=== PATIENT | female | born 1965 | race Caucasian/White ===

== ENCOUNTER → 2018-01-28 09:08 | Outpatient (CLI) | payer OTHER, SELFPAY ==
[2018-01-28 10:20] LABS: Absolute Lymphocyte Count 1.94 X10^3/ul (0.83-4.51); Absolute Neutrophil Count 2.6 X10^3/uL (2.0-7.7); Basophil# 0.02 X10^3/uL; Basophil% 0.4 % (0-1); Eosinophil# 0.18 X10^3/uL; Eosinophils% 3.5 % (0-5); Hematocrit 37.8 % (37-47); Hemoglobin 12.2 g/dl (12.0-15.0); Lymphocyte # 1.94 X10^3/ul (4.0); Lymphocyte % 37.7 % (19-41); Mean Corp Hgb Conc 32.3 g/gl (32-36); Mean Corpuscular Hgb 29.4 pg (27.0-32.0); Mean Corpuscular Volume 91.1 fL (81-99); Mean Platelet Vol. 10.7 fl (6.2-12.0); Monocyte% 7.8 % (0-10); Neutrophil % 50.4 % (47-70); Platelet Count 250 K/mm3 (150-450); RBC Distribution Width CV 12.9 % (11.6-14.6); RBC Distribution Width SD 42.4 fl (35.1-43.9); Red Blood Count 4.15 M/mm3 (4.2-5.4); White Blood Count 5.2 K/mm3 (4.4-11.0)
[2018-01-28 10:22] LABS: POSITIVE COUNT NO; POSITIVE DIFFERENTIAL NO; POSITIVE MORPHOLOGY NO
[2018-01-28 10:44] LABS: Vitamin D,25 Hydroxy 48.3 ng/mL (29.95-100.01)
[2018-01-28 10:55] LABS: AST(SGOT) 26 U/L (15-37); Alanine Aminotransfer ALT/SGPT 26 U/L (13-56); Albumin, Serum 3.6 g/dL (3.2-5.0); Alkaline Phosphatase 81 U/L (45-117); Anion Gap 6 (5-15); BUN 16 mg/dL (7-18); BUN/Creat Ratio 21.8 RATIO (10-20); CRP < 2.90 mg/L (0.0-3.0); Calcium,Total 8.7 mg/dL (8.5-10.1); Chloride 109 mmol/L (98-107); Creatinine, Serum 0.73 mg/dL (0.55-1.02); EST Glomerular Filtration Rate 87 mL/min (>60); Est Glom Filt Rate - Afr Amer 106 mL/min (>60); Ferritin 27 ng/mL (8-252); Globulin 3.5 g/dL (2.2-4.2); Glucose 80 mg/dL (74-106); Potassium 3.9 mmol/L (3.5-5.1); Protein, Total 7.1 g/dL (6.4-8.2); Sodium Level 141 mmol/L (136-145)
[2018-01-28 11:13] LABS: Hemoglobin A1c 5.1 % (4.2-6.3)
== END ==
PROVIDERS: Family Provider Family Medicine; PCP Family Medicine; Visit Provider Family Medicine
DX: Z00.00 Encounter for general adult medical examination without abnormal findings (principal); K51.90 Ulcerative colitis, unspecified, without complications
CPT/HCPCS: 36415; 80053; 82306; 82728; 83036; 85025; 86140

== ENCOUNTER → 2019-07-17 10:01 | Outpatient (CLI) | payer OTHER, SELFPAY ==
[2019-07-17 12:13] LABS: Absolute Lymphocyte Count 2.05 X10^3/uL (0.83-4.51); Absolute Neutrophil Count 3.8 X10^3/uL (2.0-7.7); Basophil# 0.03 X10^3/uL; Basophil% 0.5 % (0-1); Eosinophils% 3.1 % (0-5); Hematocrit 39.9 % (37-47); Hemoglobin 12.5 g/dL (12.0-15.0); Lymphocyte # 2.05 X10^3/ul (4.0); Lymphocyte % 31.7 % (19-41); Mean Corp Hgb Conc 31.3 g/dL (32-36); Mean Corpuscular Hgb 28.2 pg (27.0-32.0); Mean Corpuscular Volume 90.1 fL (81-99); Mean Platelet Vol. 10.8 fl (6.2-12.0); Monocyte% 6.2 % (0-10); NRBC Flagged by Analyzer 0 % (0-5); Neutrophil # 3.76 X10^3/uL (2.7-7.7); Neutrophil % 58.2 % (47-70); Platelet Count 280 K/mm3 (150-450); RBC Distribution Width CV 13.2 % (11.6-14.6); RBC Distribution Width SD 43.4 fl (35.1-43.9); Red Blood Count 4.43 M/mm3 (4.2-5.4); White Blood Count 6.5 K/mm3 (4.4-11.0)
[2019-07-17 12:38] LABS: AST(SGOT) 15 U/L (15-37); Alanine Aminotransfer ALT/SGPT 26 U/L (13-56); Albumin, Serum 3.7 g/dL (3.2-5.0); Alkaline Phosphatase 75 U/L (45-117); Anion Gap 9 (5-15); BUN 18 mg/dL (7-18); CRP < 2.90 mg/L (0.0-3.0); Calcium,Total 8.9 mg/dL (8.5-10.1); Chloride 105 mmol/L (98-107); Cholesterol 254 mg/dL (200); Creatinine, Serum 0.78 mg/dL (0.55-1.02); EST Glomerular Filtration Rate 81 mL/min (>60); Est Glom Filt Rate - Afr Amer 98 mL/min (>60); Ferritin 31 ng/mL (8-252); Globulin 3.6 g/dL (2.2-4.2); Glucose 88 mg/dL (74-106); High Density Lipoprotein 92 mg/dL; Protein, Total 7.3 g/dL (6.4-8.2); Sodium Level 141 mmol/L (136-145); Triglycerides 40 mg/dL; Very Low Density Lipoprotein 8 mg/dL (5-40)
[2019-07-17 14:13] LABS: Vitamin D,25 Hydroxy 37.5 ng/mL (29.95-100.01)
== END ==
PROVIDERS: Family Provider Family Medicine; PCP Family Medicine; Visit Provider Family Medicine
DX: Z00.00 Encounter for general adult medical examination without abnormal findings (principal)
CPT/HCPCS: 36415; 80053; 80061; 82306; 82728; 85025; 86140

== ENCOUNTER → 2020-09-03 08:47 | Outpatient (CLI) | payer OTHER, SELFPAY ==
[2020-09-03 10:06] LABS: Absolute Lymphocyte Count 2.49 X10^3/uL (0.83-4.51); Absolute Neutrophil Count 4.3 X10^3/uL (2.0-7.7); Basophil# 0.07 X10^3/uL; Basophil% 0.9 % (0-1); Eosinophil# 0.29 X10^3/uL; Eosinophils% 3.7 % (0-5); Hematocrit 39.4 % (37-47); Hemoglobin 12.3 g/dL (12.0-15.0); Lymphocyte # 2.49 X10^3/ul (4.0); Mean Corp Hgb Conc 31.2 g/dL (32-36); Mean Corpuscular Volume 89.5 fL (81-99); Mean Platelet Vol. 10.6 fl (6.2-12.0); Monocyte# 0.57 X10^3/uL; Monocyte% 7.3 % (0-10); NRBC Flagged by Analyzer 0 % (0-5); Neutrophil # 4.32 X10^3/uL (2.7-7.7); Neutrophil % 55.7 % (47-70); Platelet Count 299 K/mm3 (150-450); RBC Distribution Width CV 12.9 % (11.6-14.6); RBC Distribution Width SD 43.2 fl (35.1-43.9); White Blood Count 7.8 K/mm3 (4.4-11.0)
[2020-09-03 10:44] LABS: Vitamin D,25 Hydroxy 46.7 ng/mL
[2020-09-03 10:45] LABS: ALB/GLOB Ratio 1.2 RATIO (0.9-2.4); AST(SGOT) 16 U/L (15-37); Alanine Aminotransfer ALT/SGPT 23 U/L (13-56); Albumin, Serum 3.9 g/dL (3.2-5.0); Alkaline Phosphatase 89 U/L (45-117); Anion Gap 5 (5-15); BUN 16 mg/dL (7-18); BUN/Creat Ratio 20.4 RATIO (10-20); CRP < 2.90 mg/L (0.0-3.0); Calcium,Total 9.2 mg/dL (8.5-10.1); Chloride 107 mmol/L (98-107); Cholesterol 240 mg/dL (200); Creatinine, Serum 0.79 mg/dL (0.55-1.02); EST Glomerular Filtration Rate 80 mL/min (>60); Est Glom Filt Rate - Afr Amer 97 mL/min (>60); Globulin 3.2 g/dL (2.2-4.2); Glucose 87 mg/dL (74-106); High Density Lipoprotein 73 mg/dL; Potassium 3.7 mmol/L (3.5-5.1); Protein, Total 7.1 g/dL (6.4-8.2); Sodium Level 140 mmol/L (136-145); Triglycerides 53 mg/dL; Very Low Density Lipoprotein 11 mg/dL (5-40)
== END ==
PROVIDERS: PCP Family Medicine; Referring Provider Family Medicine; Visit Provider Family Medicine
DX: Z00.00 Encounter for general adult medical examination without abnormal findings (principal)
CPT/HCPCS: 36415; 80053; 80061; 82306; 85025; 86140

== ENCOUNTER 2020-11-30 15:42 | Outpatient (RCR) | payer OTHER, SELFPAY ==
[2020-11-30] MEDS: COVID-19 VACC, MRNA(PFIZER)/PF 30 MCG/0.3 ML SYRINGE IM (07:39)
[2020-12-21] MEDS: COVID-19 VACC, MRNA(PFIZER)/PF 30 MCG/0.3 ML SYRINGE IM (07:36)
== END 2020-11-30 23:59 ==
LOC: IMMUN 15:42
PROVIDERS: PCP Family Medicine; Referring Provider Family Medicine; Visit Provider Family Medicine
DX: Z23 Encounter for immunization (principal)
CPT/HCPCS: 0001A; 0002A; 91300

== ENCOUNTER → 2021-07-19 11:27 | Outpatient (CLI) | payer OTHER, SELFPAY ==
[2021-07-19 15:42] LABS: Absolute Lymphocyte Count 2.71 X10^3/uL (0.83-4.51); Absolute Neutrophil Count 3.1 X10^3/uL (2.0-7.7); Basophil# 0.07 X10^3/uL; Basophil% 1.1 % (0-1); Eosinophil# 0.19 X10^3/uL; Eosinophils% 2.9 % (0-5); Hematocrit 39.2 % (37-47); Hemoglobin 12.3 g/dL (12.0-15.0); Lymphocyte # 2.71 X10^3/ul (0.83-4.51); Mean Corp Hgb Conc 31.4 g/dL (32-36); Mean Corpuscular Hgb 28.7 pg (27.0-32.0); Mean Corpuscular Volume 91.4 fL (81-99); Monocyte# 0.55 X10^3/uL; Monocyte% 8.3 % (0-10); NRBC Flagged by Analyzer 0 % (0-5); Neutrophil # 3.08 X10^3/uL (2.7-7.7); Neutrophil % 46.5 % (47-70); Platelet Count 299 K/mm3 (150-450); RBC Distribution Width CV 13.2 % (11.6-14.6); RBC Distribution Width SD 44.4 fl (35.1-43.9); Red Blood Count 4.29 M/mm3 (4.2-5.4); White Blood Count 6.6 K/mm3 (4.4-11.0)
[2021-07-19 16:09] LABS: ALB/GLOB Ratio 0.9 RATIO (0.9-2.4); AST(SGOT) 19 U/L (15-37); Alanine Aminotransfer ALT/SGPT 27 U/L (13-56); Albumin, Serum 3.6 g/dL (3.2-5.0); Alkaline Phosphatase 89 U/L (45-117); Anion Gap 8 (5-15); BUN 10 mg/dL (7-18); BUN/Creat Ratio 12.9 RATIO (10-20); CRP < 2.90 mg/L (0.0-3.0); Chloride 106 mmol/L (98-107); Cholesterol 213 mg/dL (200); Creatinine, Serum 0.77 mg/dL (0.55-1.02); EST Glomerular Filtration Rate 81 mL/min (>60); Est Glom Filt Rate - Afr Amer 98 mL/min (>60); Globulin 3.8 g/dL (2.2-4.2); Glucose 75 mg/dL (74-106); High Density Lipoprotein 76 mg/dL; Potassium 3.9 mmol/L (3.5-5.1); Protein, Total 7.4 g/dL (6.4-8.2); Sodium Level 140 mmol/L (136-145); Triglycerides 55 mg/dL; Very Low Density Lipoprotein 11 mg/dL (5-40)
[2021-07-19 16:29] LABS: Vitamin D,25 Hydroxy 72.6 ng/mL
== END ==
PROVIDERS: PCP Family Medicine; Referring Provider Family Medicine; Visit Provider Family Medicine
DX: Z00.00 Encounter for general adult medical examination without abnormal findings (principal); K51.90 Ulcerative colitis, unspecified, without complications
CPT/HCPCS: 36415; 80053; 80061; 82306; 85025; 86140

== ENCOUNTER → 2021-07-22 | Outpatient (CLI) | payer OTHER, SELFPAY ==
[2021-07-27 22:07] LABS: HPV Genotype 16, Aptima Positive (Negative)
[2021-07-28 16:56] LABS: HPV APTIMA, High Risk Positive (Negative); HPV Genotype 18,45 Aptima Negative (Negative)
== END | disposition home or self-care (01) ==
LOC: LABSPEC 09:56
PROVIDERS: PCP Family Medicine; Visit Provider Student in an Organized Health Care Education/Training Program
DX: Z12.4 Encounter for screening for malignant neoplasm of cervix (principal)
CPT/HCPCS: 87624; 88175; G0145

== ENCOUNTER 2021-09-26 11:14 | Outpatient (CLI) | payer OTHER, SELFPAY ==
--- NOTE | 2021-09-26 | CER_PTH ---
PATIENT: NIK LAY LOC: [facility] U#:[id number] AGE/SX: 56/F ROOM: RE09/26/[address]: Dr. Helen Florez DO : 1965 BED: DIS: 09/26/2021 SPEC #: [id number] RECD: 09/26/21 12:54 STATUS: LAUREEN HIREN #: [id number] RAMU: 09/26/21 00:[address]: Helen Florez DEPT: SURGICAL PATHOLOGY RECD BY: Luis Alberto Sanchez ENTERED: 09/26/21 12:55 SP TYPE: CERV OTHR DR: Dr. Nas Samson MD Tissues: A - Uterine cervix, NOS B - Endocervical Procedures: Surgery Specimen Level IV HEADER OPERATION: Colposcopy PRE-OP DIAGNOSIS: Positive HPV TISSUE SUBMITTED: A ? Cervical biopsy 6 o?clock, 12 o?clock, B - ECC MICROSCOPIC DIAGNOSIS A. Cervix, 6 and 12 o?clock, biopsy: Fragments of squamous mucosa with focal minimal changes suspicious for HPV cytopathic effects. Chronic inflammation. See comment. B. ECC: Scant fragment of squamous epithelium, negative for dysplasia. VELVET:clinton 09/27/2021 COMMENT A. Results from immunohistochemistry ([id number]) for surrogate HPV marker (p16) will be reported separately. MICROSCOPIC DESCRIPTION Slides are reviewed. GROSS DESCRIPTION A - Received in fixative is one container labeled with the patient's name and designated cervical biopsy 6 and 12 o'clock. The specimen consists of multiple irregular fragments of light le soft tissue that in aggregate measure 0.5 x 0.2 x 0.1 cm. The specimen is totally submitted in one cassette. B - Received in fixative is one container labeled with the patient's name and designated ECC. The specimen consists of a scant amount of soft tissue. The specimen is totally submitted for cell block preparation. / VELVET:clinton 09/26/2021 TC:5 CPT: 02379 x2
--- NOTE | 2021-09-26 | IMM_PTH ---
PATIENT: NIK LAY LOC: [facility] U#:[id number] AGE/SX: 56/F ROOM: RE09/26/[address]: Dr. Helen Florez DO : 1965 BED: DIS: 09/26/2021 SPEC #: [id number] RECD: 09/27/21 14:03 STATUS: LAUREEN REQ #: [id number] RAMU: 09/26/21 00:[address]: Helen Florez DEPT: IMMUNOHISTOCHEMISTRY RECD BY: Maria E Leos ENTERED: 09/27/21 14:03 SP TYPE: IMMUNO OTHR DR: Dr. Nas Samson MD Tissues: A - Uterine cervix, NOS Procedures: p16 (initial) KI-67 (add) PHYSICIAN & INSTITUTION [place] [id number] SPECIMEN INFORMATION: Tissue Source: A ? Cervical biopsy 6 and 12 o?clock Clinical Info: Positive HPV Specimen Number: [id number] CPT code: 63988, 92796 METHODOLOGY: Deparaffinized sections of prefer/formalin-fixed tissue or PAP/DQ stained slides are incubated with monoclonal/polyclonal antibodies/oligonucleotide probes. Localization is made via biotin free immunoperoxidase method. Appropriate controls are performed and reacted as expected. Results on target cell population are indicated in the following table: RESULTS: ANTIBODY / CLONE RESULT Block A P16 (E6H4) negative Ki-67 (30-9) positive, in basal layers only These tests were developed and their performance characteristics determined by [facility]. They may not have been cleared or approved by the U.S. Food and Drug Administration. The FDA has determined that such clearance or approval is not necessary. The above immunohistochemical/dualISH markers are ordered and reviewed by the Pathologist. INTERPRETATION: A. Cervix at 6 and 12 o?clock, biopsy: Focal minimal changes suspicious for HPV cytopathic effects. SJ:clinton 09/28/2021
== END 2021-09-26 23:59 | disposition short-term general hospital (02) ==
LOC: WOBLAB 11:20
PROVIDERS: PCP Family Medicine; Visit Provider Student in an Organized Health Care Education/Training Program
DX: R87.810 Cervical high risk human papillomavirus (HPV) DNA test positive (principal)
CPT/HCPCS: 88305; 88341; 88342

== ENCOUNTER → 2022-06-19 | Outpatient (CLI) | payer OTHER, SELFPAY ==
[2022-06-28 10:22] LABS: HPV APTIMA, High Risk Positive (Negative)
== END | disposition home or self-care (01) ==
LOC: LABSPEC 09:29
PROVIDERS: PCP Family Medicine; Visit Provider Student in an Organized Health Care Education/Training Program
DX: Z12.4 Encounter for screening for malignant neoplasm of cervix (principal)
CPT/HCPCS: 87624; 88175; G0145

== ENCOUNTER → 2022-07-06 | Outpatient (CLI) | payer OTHER, SELFPAY ==
[2022-07-06 17:45] LABS: Absolute Lymphocyte Count 3.26 X10^3/uL (0.83-4.51); Absolute Neutrophil Count 6.2 X10^3/uL (2.0-7.7); Basophil# 0.06 X10^3/uL; Basophil% 0.6 % (0-1); Eosinophil# 0.17 X10^3/uL; Eosinophils% 1.6 % (0-5); Hematocrit 39.8 % (37-47); Hemoglobin 12.6 g/dL (12.0-15.0); Lymphocyte # 3.26 X10^3/ul (0.83-4.51); Lymphocyte % 31.5 % (19-41); Mean Corp Hgb Conc 31.7 g/dL (32-36); Mean Corpuscular Hgb 29.2 pg (27.0-32.0); Mean Corpuscular Volume 92.1 fL (81-99); Mean Platelet Vol. 10.7 fl (6.2-12.0); Monocyte# 0.65 X10^3/uL; Monocyte% 6.3 % (0-10); NRBC Flagged by Analyzer 0 % (0-5); Neutrophil # 6.19 X10^3/uL (2.7-7.7); Neutrophil % 59.8 % (47-70); Platelet Count 305 K/mm3 (150-450); RBC Distribution Width CV 12.9 % (11.6-14.6); RBC Distribution Width SD 44.2 fl (35.1-43.9); Red Blood Count 4.32 M/mm3 (4.2-5.4); White Blood Count 10.4 K/mm3 (4.4-11.0)
[2022-07-06 19:39] LABS: ALB/GLOB Ratio 1.1 RATIO (0.9-2.4); AST(SGOT) 15 U/L (15-37); Alanine Aminotransfer ALT/SGPT 23 U/L (13-56); Albumin, Serum 3.9 g/dL (3.2-5.0); Alkaline Phosphatase 81 U/L (45-117); Anion Gap 9 (5-15); BUN 19 mg/dL (7-18); BUN/Creat Ratio 23.3 RATIO (10-20); CRP < 2.90 mg/L (0.0-3.0); Calcium,Total 9.4 mg/dL (8.5-10.1); Chloride 107 mmol/L (98-107); Cholesterol 253 mg/dL (200); Creatinine, Serum 0.81 mg/dL (0.55-1.02); EST Glomerular Filtration Rate 76 mL/min (>60); Est Glom Filt Rate - Afr Amer 92 mL/min (>60); Globulin 3.4 g/dL (2.2-4.2); Glucose 85 mg/dL (74-106); High Density Lipoprotein 92 mg/dL; Potassium 3.5 mmol/L (3.5-5.1); Protein, Total 7.3 g/dL (6.4-8.2); Sodium Level 141 mmol/L (136-145)
[2022-07-11 12:08] LABS: CRP, High Sensitivity Cardiac 2.26 mg/L
== END | disposition home or self-care (01) ==
LOC: MFPLAB 16:35
PROVIDERS: PCP Family Medicine; Referring Provider Family Medicine; Visit Provider Family Medicine
DX: Z00.00 Encounter for general adult medical examination without abnormal findings (principal)
CPT/HCPCS: 36415; 80053; 82465; 83718; 85025; 86140; 86141

== ENCOUNTER 2022-07-20 10:13 | Day surgery (SDC) | payer OTHER, SELFPAY ==
--- NOTE | 2022-07-20 | CER_PTH ---
PATIENT: NIK LAY LOC: [facility] U#:[id number] AGE/SX: 57/F ROOM: RE07/20/[address]: Dr. Helen Florez DO : 1965 BED: DIS: 07/20/2022 SPEC #: [id number] RECD: 07/20/22 14:37 STATUS: LAUREEN RECarmelita #: [id number] RAMU: 07/20/22 00:[address]: Helen Florez DEPT: SURGICAL PATHOLOGY RECD BY: Luis Alberto Sanchez ENTERED: 07/21/22 11:00 SP TYPE: CERV OTHR DR: Dr. Nas Samson MD Tissues: A - UTERINE CERVIX LEEP B - UTERINE CERVIX LEEP Procedures: Surgery Specimen Level V HEADER OPERATION: LEEP cone PRE-OP DIAGNOSIS: Abnormal pap TISSUE SUBMITTED: A ? Ectocervix, B - Endocervix MICROSCOPIC DIAGNOSIS A. Ectocervix, LEEP conization: Focal squamous metaplasia involving endocervical glands. Negative for squamous dysplasia. See comment. B. Endocervix, LEEP conization: Negative for squamous dysplasia. Chronic inflammation. See comment. AM:clinton 07/24/2022 COMMENT A. Epithelium is denuded in most of the specimen. B. The specimen predominantly consists of ectocervical (squamous) epithelium. Please make reference to previous specimen ([id number]), cervix, 6 & 12 o?clock, biopsy with diagnosis of ?fragments of squamous mucosa with focal minimal changes suspicious for HPV cytopathic effects? and ECC with diagnosis of ?scant fragments of squamous epithelium, negative for dysplasia.? MICROSCOPIC DESCRIPTION Slides are reviewed. GROSS DESCRIPTION A - Received in fixative is one container labeled with the patient's name and designated ectocervix. The specimen consists of a LEEP conization specimen measuring 1.3 x 1.2 x 0.8. The specimen is inked, serially sectioned and totally submitted in two cassettes. B - Received in fixative is one container labeled with the patient's name and designated endocervix. The specimen consists of a LEEP conization specimen received in five fragments ranging in size from 1 to 1.8 cm. The smaller fragments are inked and totally submitted in cassette 1. The largest fragment is inked, serially sectioned and totally submitted in cassette 2. / DEVON:clinton 07/21/2022 TC:3 CPT: 26293 x2
--- NOTE | 2022-07-20 07:07 | PCM.HP.BLA ---
History and Physical Date of Admission: 07/20/22 HPI: 57-year-old female presenting for loop electrical excisional procedure for high-grade squamous intraepithelial lesion HPV positive Pap test. Denies fevers or chills, chest pain or shortness of breath, nausea or vomiting, diarrhea or constipation, headache or vision changes. Medical history: Denies Surgical history: D&C Medications: None Allergies: Penicillin Family history: Cancer otherwise noncontributory Social history: Denies tobacco, alcohol, drug use Review of system: Negative otherwise stated above Physical exam Vitals pending General: No acute distress HEENT normocephalic, atraumatic Cardiac: Regular rate and rhythm Respiratory: Clear to auscultation bilaterally Abdomen: Soft, nontender nondistended Extremities: No edema Neurologic: Cranial nerves II through XII grossly intact, no focal deficits Musculoskeletal: Strength out of 5 throughout extremities Assessment/plan: 57-year-old female presenting for loop electrical excisional procedure for high-grade squamous intraepithelial lesion HPV positive Pap test. All risk, benefits, alternatives discussed with the patient. Risk include but not limited to: Risk of bleeding when transfusion, infection, injury to surrounding tissue including bowel/bladder/uterine perforation, VTE, ICU admission. Patient aware and consented.
[2022-07-20 11:10] VITALS: BP 126/95; PULSE 70; RESP 12; TEMP 36.2; O2SAT 100; BMI 22.4
[2022-07-20] MEDS: Lidocaine 2% /Epi 1:100 (20ml) 20 ML VIAL (12:30)
[2022-07-20] MEDS: Iodine/Potassium Iodide 14ML Bottle 1 DRP TOPICAL (12:32)
[2022-07-20] MEDS: FERRIC SUBSULFATE 8 GM SOLN (12:40)
--- NOTE | 2022-07-20 12:48 | PCM.OPRPT ---
Report of Operation Date of Procedure: 07/20/22 Pre-Operative Diagnosis: Abnormal Pap smear, high-grade squamous intraepithelial lesion HPV positive Post-Operative Diagnosis: Abnormal Pap smear, high-grade squamous intraepithelial lesion HPV positive Surgery/Procedure Performed:: Loop electrical excisional procedure Description of Surgical Findings:: Normal-appearing external genitalia. Minimal uterine descensus. Lugol staining of cervix and vagina. Type of Anesthesia: Local Specimen's removed: Endocervix and ectocervix Estimated Blood Loss (mL): 5 cc Fluids Replaced: None Description of Procedure: Indications/risk/benefits: Patient presenting for loop electrical excisional procedure. All risk, benefits, alternatives discussed with the patient. Risk include but are not limited to: Risk of bleeding point transfusion, infection, injury to surrounding tissue and bowel/bladder/vagina, VTE, ICU mission. Procedure: Patient taken to the operating room. Patient placed in the dorsal lithotomy position and prepped and draped in usual sterile fashion. Coated speculum placed in the vagina. Paracervical block completed with 14 cc 2% lidocaine with epinephrine 1:200. Lugol's placed in the vagina and along the cervix. Findings as above. Loop utilized to remove anterior and posterior cervix, endocervix. Cervical but hemostatic with rollerball. Vagina inspected with findings as above. Monsel's placed at the LEEP bed of the cervix. At the end of the procedure all needle, lap, sponge counts were correct. Discussed findings with patient. Complications None
--- NOTE | 2022-07-20 12:52 | DCINST_ITS ---
Discharge Instructions Diet Discharge Diet: No restrictions Activity Discharge Activity: Return to Normal Activity and May Shower May resume sexual activity in: 2 weeks Weight Bearing Status: Weight bearing as tolerated Lifting Restrictions: None Dressing / Incision Call your doctor if you observe: Fever of 101 or Higher, Change in Color, Inability to urinate, Using more than 1 pad per hour, Shortness of breath, Dizziness, Swelling in the ankles, Chest pain and Calf discomfort Follow Up Care Please Follow Up With: Helen Florez DO When: 1-2 week postoperative visit Test Results: Test results from this visit will be discussed in further detail at your follow- up appointment, if applicable. Discharge Plan Admission Primary Reason for Your Visit: LEEOlivia Attending Provider: Helen Florez Primary Care Provider: Nas Samson Discharge Orders/Prescriptions Prescriptions: No Action Ahcc 2 cap PO/SL DAILY multivitamin Capsule 1 cap PO DAILY cholecalciferol (vitamin D3) [Vitamin D3] 25 mcg (1,000 unit) Capsule 25 mcg PO DAILY coenzyme Q10 [CoQ-10] 100 mg Capsule 100 mg PO DAILY Fish Oil Capsule 1,000 mg PO DAILY Vitamin U96-Hnyes Tablet 1 tab PO FR resveratrol 100 mg Capsule 100 mg PO DAILY vitamin K2 100 mcg Capsule 100 mcg PO DAILY Nmn 1 packet PO/SL DAILY metformin 500 mg tablet 250 mg PO BID Label Comments: TAKE 1/2 TABLET BY MOUTH TWICE DAILY Referrals / Follow Up: Nas Samson MD [Primary Care Provider] - Disposition Disposition (needs filled in before D/C Order can be placed): Home, Self Care
== END 2022-07-20 13:15 | disposition home or self-care (01) ==
LOC: SDC 10:15 → AC 10:19
PROVIDERS: PCP Family Medicine; Referring Provider Student in an Organized Health Care Education/Training Program; Visit Provider Student in an Organized Health Care Education/Training Program
PROC: 0UBC7ZZ Excision of Cervix, Via Natural or Artificial Opening (ICD-10-PCS; CPT 57522; principal; 2022-07-20 11:35)
DX: R87.619 Unspecified abnormal cytological findings in specimens from cervix uteri (principal); Z11.51 Encounter for screening for human papillomavirus (HPV)
CPT/HCPCS: 57522; 86850; 86900; 86901; 88307; J7120

== ENCOUNTER → 2023-01-24 | Outpatient (CLI) | payer OTHER, SELFPAY ==
[2023-02-01 15:09] LABS: HPV APTIMA, High Risk Negative (Negative)
== END | disposition home or self-care (01) ==
LOC: LABSPEC 09:23
PROVIDERS: PCP Family Medicine; Visit Provider Student in an Organized Health Care Education/Training Program
DX: Z12.4 Encounter for screening for malignant neoplasm of cervix (principal)
CPT/HCPCS: 87624; 88175; G0145

== ENCOUNTER → 2023-02-26 | Outpatient (CLI) | payer OTHER, SELFPAY ==
--- NOTE | 2023-02-26 | IMM_PTH ---
PATIENT: NIK LAY LOC: [facility] U#:[id number] AGE/SX: 58/F ROOM: RE02/26/[address]: Dr. Helen Florez DO : 1965 BED: DIS: 02/26/2023 SPEC #: [id number] RECD: 02/28/23 12:56 STATUS: LAUREEN REQ #: [id number] RAMU: 02/26/23 00:[address]: Helen Florez DEPT: IMMUNOHISTOCHEMISTRY RECD BY: Maria E Leos ENTERED: 02/28/23 12:57 SP TYPE: IMMUNO OTHR DR: Dr. Nas Samson MD Tissues: A - Uterine cervix, NOS B - Endocervical Procedures: p16 (initial) KI-67 (add) PHYSICIAN & INSTITUTION [place] [id number] SPECIMEN INFORMATION: Tissue Source: A ? Cervical biopsy, B ? Endocervical curettings Clinical Info: N93.9 Specimen Number: [id number] A & B CPT code: 02335 x2, 50852 x2 METHODOLOGY: Deparaffinized sections of prefer/formalin-fixed tissue or PAP/DQ stained slides are incubated with monoclonal/polyclonal antibodies/oligonucleotide probes. Localization is made via biotin free immunoperoxidase method. Appropriate controls are performed and reacted as expected. Results on target cell population are indicated in the following table: RESULTS: ANTIBODY / CLONE RESULT Block A P16 (E6H4) positive, focal minimal patchy staining Ki-67 (30-9) positive, very low, only basal layer Block B P16 (E6H4) positive, focal minimal patchy staining Ki-67 (30-9) positive, very low These tests were developed and their performance characteristics determined by [facility]. They may not have been cleared or approved by the U.S. Food and Drug Administration. The FDA has determined that such clearance or approval is not necessary. The above immunohistochemical/dualISH markers are ordered and reviewed by the Pathologist. INTERPRETATION: A. Cervical biopsy: Negative for dysplasia. B. Endocervical curettings: Negative for dysplasia. SJ:clinton 03/01/2023
--- NOTE | 2023-02-26 | CER_PTH ---
PATIENT: NIK LAY LOC: [facility] U#:[id number] AGE/SX: 58/F ROOM: RE02/26/[address]: Dr. Helen Florez DO : 1965 BED: DIS: 02/26/2023 SPEC #: [id number] RECD: 02/26/23 15:24 STATUS: LAUREEN HIREN #: [id number] RAMU: 02/26/23 00:[address]: Helen Florez DEPT: SURGICAL PATHOLOGY RECD BY: Jamarcus Riggs ENTERED: 02/27/23 10:22 SP TYPE: CERV OTHR DR: Dr. Nas Samson MD Tissues: A - Uterine cervix, NOS B - Endocervical Procedures: Surgery Specimen Level IV HEADER OPERATION: Colposcopy PRE-OP DIAGNOSIS: N93.9 TISSUE SUBMITTED: A ? Cervical biopsy, B ? Tischler endocervical curettings MICROSCOPIC DIAGNOSIS A. Cervix, biopsy: Fragments of squamous epithelium, negative for dysplasia. Atrophic changes. See comment. B. Endocervical curettings: Fragments of squamous epithelium, negative for dysplasia. Atrophic changes. Fragments of benign endocervical epithelium. See comment. VELVET:clinton 02/28/2023 COMMENT A & B. Immunohistochemistry ([id number]) for surrogate HPV marker (p16) supports the above diagnosis. MICROSCOPIC DESCRIPTION Slides are reviewed. GROSS DESCRIPTION A - Received in fixative is one container labeled with the patient's name and designated cervical biopsy. The specimen consists of two irregular fragments of light le soft tissue that in aggregate measure 0.5 x 0.3 x 0.1 cm. The specimen is totally submitted in one cassette. B - Received in fixative is one container labeled with the patient's name and designated ECC. The specimen consists of a scant amount of soft tissue. The specimen is totally submitted for cell block preparation. / VELVET:clinton 02/27/2023 TC:5 CPT: 52137 x2
== END | disposition home or self-care (01) ==
LOC: LABSPEC 15:19
PROVIDERS: PCP Family Medicine; Visit Provider Student in an Organized Health Care Education/Training Program
DX: N93.9 Abnormal uterine and vaginal bleeding, unspecified (principal)
CPT/HCPCS: 88305; 88341; 88342

== ENCOUNTER → 2023-08-06 | Outpatient (CLI) | payer OTHER, SELFPAY ==
--- NOTE | 2023-08-06 15:26 | BI_ITS ---
MAMMOGRAPHY - BILATERAL SCREENING REASON FOR EXAM: Female, 58 years old. Routine annual screening examination. PERTINENT HISTORY: Non-contributory. TECHNIQUE: Digital bilateral breast angela (3D mammographic acquisition) in the CC and MLO projections. 2-D mediolateral oblique (MLO) and craniocaudad (CC) views of both breasts were obtained. CAD: Full Field Digital Mammography with Computer Added Detection was performed. COMPARISON: Comparison is made with prior study dated August 23, 2017. FINDINGS: Breast Composition: The breasts are heterogeneously dense, which may obscure small masses. There are no dominant masses or suspicious calcifications. No other significant abnormalities are identified. There has been no significant change since the prior study. BI/SCRN MAMM (CAD)W/ANGELA BILAT IMPRESSION: Stable bilateral screening mammogram. Yearly follow-up mammogram recommended. (A) ASSESSMENT CATEGORY: BIRADS Category 1: Negative. A letter regarding these results will be sent to the patient by the facility within 30 days. Approximately 10% of breast cancers are not detected by mammography. A normal mammogram should not delay biopsy of a clinically suspicious abnormality. [id number] Electronically Signed: Shiva Irving MD at 10:52 EST ,
== END | disposition home or self-care (01) ==
LOC: OPBI 15:24
PROVIDERS: PCP Family Medicine; Referring Provider Family Medicine; Visit Provider Family Medicine
DX: Z12.31 Encounter for screening mammogram for malignant neoplasm of breast (principal)
CPT/HCPCS: 77063; 77067

== ENCOUNTER → 2023-08-14 | Outpatient (CLI) | payer OTHER, SELFPAY ==
[2023-08-14 15:16] LABS: Absolute Lymphocyte Count 2.41 X10^3/uL (0.83-4.51); Absolute Neutrophil Count 4.4 X10^3/uL (2.0-7.7); Basophil# 0.05 X10^3/uL; Basophil% 0.7 % (0-1); Eosinophil# 0.18 X10^3/uL; Eosinophils% 2.4 % (0-5); Hematocrit 40.2 % (37-47); Hemoglobin 12.5 g/dL (12.0-15.0); Lymphocyte # 2.41 X10^3/ul (0.83-4.51); Mean Corp Hgb Conc 31.1 g/dL (32-36); Mean Corpuscular Hgb 28.5 pg (27.0-32.0); Mean Corpuscular Volume 91.6 fL (81-99); Mean Platelet Vol. 10.6 fl (6.2-12.0); Monocyte# 0.52 X10^3/uL; Monocyte% 6.9 % (0-10); NRBC Flagged by Analyzer 0 % (0-5); Neutrophil # 4.35 X10^3/uL (2.7-7.7); Neutrophil % 57.7 % (47-70); Platelet Count 321 K/mm3 (150-450); RBC Distribution Width SD 43.8 fl (35.1-43.9); Red Blood Count 4.39 M/mm3 (4.2-5.4); White Blood Count 7.5 K/mm3 (4.4-11.0)
[2023-08-14 16:23] LABS: AST(SGOT) 16 U/L (15-37); Alanine Aminotransfer ALT/SGPT 24 U/L (13-56); Albumin, Serum 3.8 g/dL (3.2-5.0); Alkaline Phosphatase 81 U/L (45-117); Anion Gap 9 (5-15); BUN 13 mg/dL (7-18); BUN/Creat Ratio 17.3 RATIO (10-20); CRP 3.34 mg/L (0.0-3.0); Calcium,Total 8.9 mg/dL (8.5-10.1); Chloride 106 mmol/L (98-107); Cholesterol 264 mg/dL (200); Creatinine, Serum 0.75 mg/dL (0.55-1.02); EST Glomerular Filtration Rate 84 mL/min (>60); Est Glom Filt Rate - Afr Amer 101 mL/min (>60); Globulin 3.7 g/dL (2.2-4.2); Glucose 80 mg/dL (74-106); High Density Lipoprotein 88 mg/dL; Potassium 3.7 mmol/L (3.5-5.1); Protein, Total 7.5 g/dL (6.4-8.2); Sodium Level 140 mmol/L (136-145); T4 Free Direct 1.13 ng/dL (0.76-1.46); Thyroid Stim Hormone (TSH) 1.01 uIU/mL (0.358-3.74)
[2023-08-16 11:08] LABS: Lyme Scn Total Ab w/Rflx Negative (Negative)
[2023-08-16 14:09] LABS: ANTINUCLEAR ANTIBODIES DIRECT Negative (Negative)
== END | disposition home or self-care (01) ==
LOC: MTLAB 12:21
PROVIDERS: PCP Family Medicine; Referring Provider Family Medicine; Visit Provider Family Medicine
DX: Z00.00 Encounter for general adult medical examination without abnormal findings (principal); K51.90 Ulcerative colitis, unspecified, without complications; W57.XXXA Bitten or stung by nonvenomous insect and other nonvenomous arthropods, initial encounter; R53.83 Other fatigue
CPT/HCPCS: 36415; 80053; 82465; 83718; 84439; 84443; 85025; 86038; 86140; 86618

== ENCOUNTER 2023-09-20 07:46 | Day surgery (SDC) | payer OTHER, SELFPAY ==
[2023-09-20 08:12] VITALS: BP 113/71; PULSE 54; RESP 16; TEMP 36.6; O2SAT 100; BMI 23.2
[2023-09-20] MEDS: Lactated Ringers 1,000 ML 15 ML IV (08:12)
--- OUTSIDE RECORDS SUMMARY | 2023-09-20 08:12 | XMS RPT_ITS | CCD ---
Author Name Unknown Address [address] [place] [address] Organization [facility] Care Team Providers Care Mortgage Branch Manager Name Role Phone SUKH CASTLE MD Primary Care Physician WALDO JULES, WANG Attending Unavailable SUKH CASTLE MD Primary Care Unavailable WANG HAAS MD Attending Unavailable SUKH CASTLE MD Primary Care Unavailable Allergies Allergy Classification Reported Allergen(s) Allergy Type Date of Onset Reaction(s) Facility (2 sources) Cashew nut Food allergy itching [facility] (2 sources) Penicillins; Translations: [penicillins] Drug allergy rash [facility] Medications Current Medications Medication Drug Class(es) Dates Sig (Normalized) Sig (Original) Estriol vaginal cream (2 sources) Start: 08-20-2023 Estriol vaginal cream Estriol vaginal cream, 0 Refill(s) Start Date: 08/20/23 Status: Ordered ferrous sulfate (2 sources) Start: 08-20-2023 ferrous sulfate Oral, 0 Refill(s) Start Date: 08/20/23 Status: Ordered magnesium oxide 250 mg oral tablet (2 sources) Start: 08-20-2023 Magnesium 250 mg tablet Dose : 500 mg = 2 tab(s), Oral, qDay, 0 Refill(s) Start Date: 08/20/23 Status: Ordered Multivitamin preparation (2 sources) Start: 08-20-2023 take 1 tablet by mouth once daily Multivitamin Dose = 1 tab(s), Oral, Daily, 0 Refill(s) Start Date: 08/20/23 Status: Ordered turmeric extract 500 mg oral capsule (2 sources) Start: 08-20-2023 turmeric 500 mg oral capsule 0 Refill(s) Start Date: 08/20/23 Status: Ordered vitamin B12 (2 sources) Vitamin B12 Start: 08-20-2023 Vitamin B12 0 Refill(s) Start Date: 08/20/23 Status: Ordered Vitamin D and K oral tablet (2 sources) Start: 08-20-2023 Vitamin D and K oral tablet 0 Refill(s) Start Date: 08/20/23 Status: Ordered Zinc (2 sources) Start: 08-20-2023 take 1 dose by mouth once daily Zinc Dose : 140 mg =, Oral, qDay, 0 Refill(s) Start Date: 08/20/23 Status: Ordered Completed/Discontinued Medications Medication Drug Class(es) Dates Sig (Normalized) Sig (Original) estradiol 0.1 mg/ml vaginal cream (2 sources) Estrogen Start: 08-20-2023 Estrace Vaginal 0.1 mg/g vaginal cream Dose = 1 appl, Vaginal, 2X/week, # 42.5 gram(s), 0 Refill(s), other reason (Rx), Well woman exam Adnexal mass Start Date: 08/20/23 Status: Ordered Problems Problem Classification Problem Date Documented Da te Episodic/Chronic Other female genital disorders (2 sources) Other specified conditions associated with female genital organs and menstrual cycle; Translations: [Other specified conditions associated with female genital organs and menstrual cycle] Onset: 08-20-2023 Episodic Other female genital disorders (2 sources) Moderate cervical dysplasia; Translations: [Moderate cervical dysplasia] Onset: 08-20-2023 Episodic Other screening for suspected conditions (not mental disorders or infectious disease) (2 sources) Encounter for screening for malignant neoplasm of cervix; Translations: [Encounter for screening for malignant neoplasm of cervix] Onset: 08-20-2023 Episodic Residual codes; unclassified (2 sources) Pallor; Translations: [Pallor] Onset: 08-20-2023 Episodic Results Test Name Value Interpretation Reference Range Facil ity Encounters Encounter Date Encounter Type Care Provider Facility Start: 08-29-2023 End: 08-30-2023 ambulatory WANG HAAS MD Facility:B Start: 08-29-2023 End: 08-29-2023 Patient encounter procedure WANG HAAS MD [facility] Start: 08-20-2023 ambulatory WANG HAAS MD Facilit y:B Start: 08-20-2023 Encounter for gynecological examination (general) (routine) without abnormal findings WANG HAAS MD Facility:B Start: 08-20-2023 End: 08-24-2023 Outreach Lab WANG HAAS MD [facility] Procedures Date Procedure Procedure Detail Performing Clinician Start: 09-17-2021 Loop electrosurgical excision procedure of cervix WANG HAAS MD Colposcopy WANG HAAS MD Payers Date Payer Category Payer Unknown [id number] 2023 Unknown [id number] 1965 Unknown [id number] 1965 Unknown [id number] Social History Date Type Detail Facility Start: 08-20-2023 Tobacco smoking status Never s moked tobacco (finding) [facility] Sex Assigned At Female [facility] Clinical Notes 08-23-2023 Radiology Note Date & Type Note Facility 08-23-2023 Note NEGATIVE FOR INTRAEPITHELIAL LESION OR MALIGNANCY [facility] 08-23-2023 Note NEGATIVE FOR INTRAEPITHELIAL LESION OR MALIGNANCY [facility] 08-23-2023 Note NEGATIVE FOR INTRAEPITHELIAL LESION OR MALIGNANCY [facility] 08-23-2023 Note NEGATIVE FOR INTRAEPITHELIAL LESION OR MALIGNANCY [facility] 08-23-2023 Note NEGATIVE FOR INTRAEPITHELIAL LESION OR MALIGNANCY [facility] 08-23-2023 Note NEGATIVE FOR INTRAEPITHELIAL LESION OR MALIGNANCY [facility] 08-23-2023 Note NEGATIVE FOR INTRAEPITHELIAL LESION OR MALIGNANCY [facility] 08-23-2023 Note NEGATIVE FOR INTRAEPITHELIAL LESION OR MALIGNANCY [facility] Evaluation + Plan note Future Appointments Appointment Date:08/29/2023 07:30:00 AM Scheduled Provider: Location:[facility] Appointment Type:US Pelvis Non-OB W/Transvaginal Future Scheduled TestsUS Pelvis Non-OB W/Transvaginal 08/29/23 [facility] Hospital course Narrative No data available for this section [facility] Hospital Discharge instructions No data available for this section [facility] Progress note No data available for this section [facility] Summary Purpose Family History No Family History Records Found Advance Directives No Advanced Directives Records Found Additional Source Comments Patient Care team informatio n (unrecognized section and content) Care Team Personnel Name: SUKH CASTLE MD Member Role: Primary Care Physician Address: Address: [address] Care Team Related Persons Name: NO, NO Care Team Personnel Name: SUKH CASTLE MD Member Role: Primary Care Physician Address: Address: [place] [address] Care Team Related Persons Name: NO, NO INFORMATION SOURCE (unrecogn ized section and content) FOR RECORDS PERTAINING TO PATIENTS WHO ARE OR HAVE BEEN ENROLLED IN A CHEMICAL DEPENDENCY/SUBSTANCEABUSE PROGRAM, SOME INFORMATION MAY BE OMITTED. This clinical summary was aggregated from multiple sources. Caution should be exercised in using it in the provision of clinical care. This summary normalizes information from multiple sources, and as a consequence, information in this document may materially change the coding, format and clinical context of patient data. In addition, data may be omitted in some cases. CLINICAL DECISIONS SHOULD BE BASED ON THE PRIMARY CLINICAL RECORDS. [facility] [employer] [facility]. provides no warranty or guarantee of the accuracy or completeness of information in this document.
--- NOTE | 2023-09-20 08:45 | COLBX_PTH ---
PATHOLOGY RESULTS PATIENT: NIK LAY LOC: [facility] U#:[id number] AGE/SX: 58/F ROOM: RE09/20/[address]: Dr. Sarkis Hope DO : 1965 BED: DIS: 09/20/2023 SPEC #: [id number] RECD: 09/20/23 11:24 STATUS: LAUREEN RECarmelita #: [id number] RAMU: 09/20/23 08:[address]: Sarkis Hope DEPT: SURGICAL PATHOLOGY RECD BY: Callie Bowers ENTERED: 09/20/23 11:25 SP TYPE: COLON BX OTHR DR: Dr. Nas Samson MD Tissues: Rectum, NOS Rectum, NOS Procedures: Surgery Specimen Level IV HEADER OPERATION: Colonoscopy - open access with biopsy and marking PRE-OP DIAGNOSIS: Screening TISSUE SUBMITTED: A - Rectal mass, B - Rectal biopsy MICROSCOPIC DIAGNOSIS A. Rectal mass, biopsy: Consistent with inflammatory polyp. B. Rectal biopsy: Diffuse moderate chronic active proctitis. See microscopic description and comment. VELVET:clinton 09/21/2023 COMMENT Correlation with clinical, endoscopic findings and appropriate follow up are necessary. MICROSCOPIC DESCRIPTION Slides are reviewed. B. The specimen shows fragments of colonic mucosa with ulceration, acute and chronic inflammation and granulation tissue reaction, moderate acute and chronic inflammatory cell infiltrate in the lamina propria, cryptitis, crypt abscesses and glandular distortion. Granulomas are not seen. No evidence of dysplasia. GROSS DESCRIPTION A - Received in fixative is one container labeled with the patient's name and designated rectal mass. The specimen consists of a le-pink polyp measuring 0.9 x 0.6 x 0.3 cm. The specimen is totally submitted in one cassette. B - Received in fixative is one container labeled with the patient's name and designated rectal biopsy. The specimen consists of multiple irregular fragments of light le soft tissue that in aggregate measure 1.3 x 0.3 x 0.1 cm. The specimen is totally submitted in one cassette. / VELVET:clinton 09/20/2023 TC:3 CPT:, 78317 x2
--- NOTE | 2023-09-20 08:52 | PCM.HP.STD ---
[facility] - General General Date of Admission: 09/20/23 Date of Service: 09/20/23 Chief Complaint: Screening colonoscopy HPI Chandana LAY, is a 58 F who presents today for screening colonoscopy. She had a cold 10 years ago and it was normal. She does have a family history of skin cancer but no personal history of cancer. 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 She not have any problems with that now she does not take any medicines on a daily basis. And vitamins and supplements. Overall she is in very good health. [facility] Medical History (Updated 09/14/23 @ 13:37 by Evon Lilly) Actinic keratosis Alcohol use Anemia Anemia Dietary restriction Family history of skin cancer Heart murmur High cholesterol History of irregular heartbeat History of steroid therapy Hx LEEP (loop electrosurgical excision procedure), cervix, Hx of ulcerative colitis IBS (irritable bowel syndrome) Injury of head and neck Non-smoker Post-menopausal Spider veins of both lower extremities Ulcerative colitis UTI (urinary tract infection) Wears glasses Home Medications cholecalciferol (vitamin D3) 25 mcg (1,000 unit) capsule (Vitamin D3) 25 mcg PO DAILY 06/16/22 [History Last Taken 09/20/23] coenzyme Q10 100 mg capsule (CoQ-10) 100 mg PO DAILY 06/16/22 [History Last Taken 09/20/23] cyanocobalamin-liver extract tablet 1 tab PO FR 06/16/22 [History Last Taken 09/20/23] multivitamin 1 cap PO DAILY 06/16/22 [History Last Taken 09/20/23] omega-3 fatty acids 1,000 mg PO DAILY 06/16/22 [History Last Taken 09/20/23] vitamin K2 100 mcg capsule 100 mcg PO DAILY 06/16/22 [History Last Taken 09/20/23] quercetin 500 mg capsule 500 mg PO DAILY 09/14/23 [History Last Taken 09/20/23] Allergy/AdvReac Type Severity Reaction Status Date / Time amoxicillin Allergy Rash Verified 09/20/23 08:11 cashew nut [cashews] Allergy Itching Verified 09/20/23 08:11 Penicillins [cillins] Allergy Rash Verified 09/20/23 08:11 Family History (Updated 08/22/23 @ 10:38 by Luz Avila) Mother Colon cancer Other Anemia Family history of skin cancer Surgical History (Updated 09/14/23 @ 13:37 by Evon Lilly) Hx of colonoscopy Hx of oral surgery Social History Smoking Status: Never smoker alcohol intake: never substance use type: does not use additional social history: Does Take Aspirin Does Not Take Ibuprofen ROS Review of Systems ROS Unobtainable: other Constitutional Constitutional: Denies fatigue, fever(s), poor appetite, weight gain or weight loss ENT HEENT: Denies mouth lesions Cardiovascular Cardiovascular: Denies abdominal bloating, abdominal edema or abdominal pain Respiratory/Chest Respiratory/Chest: Denies change in mental status, change in phlegm color, chest congestion or chest tightness Gastrointestinal Gastrointestinal: Denies belching, bloating, change in bowel habits, change in stool character, chewing difficulty, coffee ground emesis, constipation, cramping, diarrhea, dyspepsia, dysphagia, early satiety, excessive flatus, fecal incontinence, heartburn, hematemesis, hematochezia, hemorrhoids, loose stools, melena, nausea, odynophagia, rectal bleeding, tenesmus, vomiting or weight changes Genitourinary Genitourinary: Denies abdominal discomfort, burning urination or itching Musculoskeletal Musculoskeletal: Reports as per HPI; Denies muscle weakness or myalgias Integumentary Integumentary: Denies jaundice Neurologic Neurologic: Denies lack of coordination or weakness Psychiatric Psychiatric: Denies confusion, depression, memory loss, mood swings, paranoia or suicidal ideation Endocrine Endocrinology: Denies systems reviewed and no addt'l complaints, except as documented Hematologic/Lymphatic Hematologic/Lymphatic: Denies anemia, easy bleeding, easy bruising or lymphadenopathy Allergic/Immunologic Allergic/Immunologic: Denies systems reviewed and no addt'l complaints, except as documented Vital Signs Vital Signs Vital Signs: 09/20/23 08:12 09/20/23 08:12 Temperature 97.8 F Temperature Source Temporal Pulse Rate 54 L Respiratory Rate 16 Respiratory Pattern Normal Blood Pressure 113/71 Blood Pressure Mean 85 Blood Pressure Source Monitor Blood Pressure Position Semi-Fowlers Blood Pressure Location Right Arm Pulse Ox 100 Oxygen Delivery Method Room Air Weight Weight: 127 lb 3.307 oz Body Mass Index (BMI) 23.2 Physical Exam Const alert General Appearance: cooperative Orientation / Consciousness: oriented to person HEENT hearing grossly normal bilaterally Head and Scalp: normal to inspection Face and Sinus: face symmetric Nose: external nose normal Mouth: oral and palatal mucosa normal Eyes conjunctivae normal General Eye: normal appearance of both eyes Neck full ROM General: normal visual inspection Lymph Lymphatic: no lymphadenopathy noted Chest inspection of chest normal and palpation of chest normal Chest: symmetrical chest wall rise Resp normal respiratory effort Effort and Inspection: able to speak in complete sentences Cardio regular rate GI non-distended Percussion: normal to percussion Rectal Exam: deferred Neuro Speech: speech normal Gait (Neuro): normal gait Assessment & Plan Assessment/Plan (1) Encounter for screening for malignant neoplasm of colon: PLAN: She was explained alternatives, risk, benefits including not withstanding bleeding, infection, sepsis, perforation, need for emergent surgery and . She will have an ASA of 2.
[2023-09-20 09:32] VITALS: BP 113/71; BP 93/55; PULSE 58; RESP 16; TEMP 36.2; O2SAT 100
[2023-09-20 09:35] VITALS: BP 113/71; BP 98/55; PULSE 68; RESP 16; O2SAT 100
--- NOTE | 2023-09-20 09:35 | OP.CCLET_ITS ---
09/20/2023 Nas Samson [address] [facility] [address] [place] [address] Re : Colonoscopy procedure for Jerica Campuzano Dear Dr. Samson This procedure was performed on September. My impressions and recommendations are as follows: Impressions : - Rule out malignancy, tumor in the rectum. Complete removal was accomplished. Injected. - Localized moderate inflammation was found in the rectum and in the recto-sigmoid colon secondary to colitis. Biopsied. Recommendations : - Discharge patient to home. - Resume previous diet. - Continue present medications. - Await pathology results. - Repeat colonoscopy for surveillance. My findings are described in the full procedure note, which is enclosed. If I can be of further assistance, please feel free to contact me at . Sincerely, Sarkis Hope, 09/20/2023 9:34:55 AM This report has been signed electronically.
--- NOTE | 2023-09-20 09:35 | OP.COLON_ITS ---
Patient Name: Jerica Campuzano Procedure Date: 09/20/2023 8:55 AM Date of : 1965 Age: 58 Procedure: Colonoscopy Indications: Screening for colorectal malignant neoplasm Providers: Sarkis Hope DO Medicines: Monitored Anesthesia Care Patient Profile: This is a 58 year old female. Refer to note in patient chart for documentation of history and physical. Last Colonoscopy: 10 years ago. Complications: No immediate complications. Procedure: Pre-Anesthesia Assessment: - Prior to the procedure, a History and Physical was performed, and patient medications and allergies were reviewed. The patient is competent. The risks and benefits of the procedure and the sedation options and risks were discussed with the patient. All questions were answered and informed consent was obtained. Patient identification and proposed procedure were verified by the physician. Mental Status Examination: alert and oriented. Prophylactic Antibiotics: The patient does not require prophylactic antibiotics. Prior Anticoagulants: The patient has taken no anticoagulant or antiplatelet agents. After reviewing the risks and benefits, the patient was deemed in satisfactory condition to undergo the procedure. The anesthesia plan was to use monitored anesthesia care (MAC). Immediately prior to administration of medications, the patient was re-assessed for adequacy to receive sedatives. The heart rate, respiratory rate, oxygen saturations, blood pressure, adequacy of pulmonary ventilation, and response to care were monitored throughout the procedure. The physical status of the patient was re-assessed after the procedure. After I obtained informed consent, the scope was passed under direct vision. Throughout the procedure, the patient's blood pressure, pulse, and oxygen saturations were monitored continuously. The Colonoscope was introduced through the anus and advanced to the cecum, identified by appendiceal orifice and ileocecal valve. The colonoscopy was performed without difficulty. The patient tolerated the procedure well. The quality of the bowel preparation was good. The ileocecal valve, appendiceal orifice, and rectum were photographed. Scope In: 9:02:43 AM Scope Withdrawal Time 0 hours 16 minutes 12 seconds Scope Out: 9:24:51 AM Total Procedure Duration Time 0 hours 22 minutes 8 seconds Findings: The perianal and digital rectal examinations were normal. A polypoid non-obstructing medium-sized mass was found in the rectum. The mass was non-circumferential. The mass measured one cm in length. In addition, its diameter measured six mm. No bleeding was present. The polyp was removed with a saline injection-lift technique using a hot snare. Resection and retrieval were complete. Area was successfully injected with 5 mL Tova ink for tattooing. Estimated blood loss was minimal. Localized moderate inflammation characterized by congestion (edema), erosions, erythema, friability, linear erosions and aphthous ulcerations was found in the rectum and in the recto-sigmoid colon. Biopsies were taken with a cold forceps for histology. Verification of patient identification for the specimen was done. Estimated blood loss was minimal. Impression: - Rule out malignancy, tumor in the rectum. Complete removal was accomplished. Injected. - Localized moderate inflammation was found in the rectum and in the recto-sigmoid colon secondary to colitis. Biopsied. Recommendation: - Discharge patient to home. - Resume previous diet. - Continue present medications. - Await pathology results. - Repeat colonoscopy for surveillance. Procedure Code(s): --- Professional --- 25682, Colonoscopy, flexible; with removal of tumor(s), polyp(s), or other lesion(s) by snare technique 57505, 59, Colonoscopy, flexible; with biopsy, single or multiple 69192, Colonoscopy, flexible; with directed submucosal injection(s), any substance CPT copyright 2021 [employer]. All rights reserved. The codes documented in this report are preliminary and upon psychologist social review may be revised to meet current compliance requirements. Sarkis Hope DO 09/20/2023 9:34:55 AM This report has been signed electronically. Number of Addenda: 0 Note Initiated On: 09/20/2023 8:55 AM
[2023-09-20 09:40] VITALS: BP 113/71; BP 98/66; PULSE 62; RESP 16; O2SAT 99
[2023-09-20 09:45] VITALS: BP 100/63; BP 113/71; PULSE 58; RESP 16; TEMP 36.4; O2SAT 100
[2023-09-20 11:16] LABS: Erythrocyte Sedimentation Rate 2 mm/hr (0-30)
[2023-09-20 11:55] LABS: CRP < 2.90 mg/L (0.0-3.0)
[2023-09-21 11:08] LABS: Anti-Centromere B Ab <0.2 AI (0.0-0.9); Anti-Chromatin 0.3 AI (0.0-0.9); Anti-Jo <0.2 AI (0.0-0.9); Anti-Scleroderma-70 AB <0.2 AI (0.0-0.9); Anti-dsDNA Ab <1 IU/mL (0-9); RNP Ab <0.2 AI (0.0-0.9); SJOGREN'S Anti-SS-A test < 0.2 AI (0.0-0.9); SJOGREN'S Anti-SS-B test < 0.2 AI (0.0-0.9); Smith Ab <0.2 AI (0.0-0.9)
[2023-09-21 14:09] LABS: Carcinoembryonic Antigen 2.2 ng/mL (0.0-4.7); Cytoplasmic Ab (C-ANCA) <1:20 titer (Neg:<1:20); Perinuclear Ab (P-ANCA) <1:20 titer (Neg:<1:20)
== END 2023-09-20 10:37 | disposition home or self-care (01) ==
LOC: EN 07:47 → AC 07:48
PROVIDERS: PCP Family Medicine; Referring Provider Family Medicine; Visit Provider Internal Medicine Gastroenterology
PROC: 0DJD8ZZ Inspection of Lower Intestinal Tract, Via Natural or Artificial Opening Endoscopic (ICD-10-PCS; CPT 45378; principal; 2023-09-20 08:40)
DX: Z12.11 Encounter for screening for malignant neoplasm of colon (principal); K51.30 Ulcerative (chronic) rectosigmoiditis without complications; K51.20 Ulcerative (chronic) proctitis without complications; E78.00 Pure hypercholesterolemia, unspecified; K62.89 Other specified diseases of anus and rectum
CPT/HCPCS: 45381; 45385; 45380; 36415; 82378; 85652; 86140; 86225; 86235; 86256; 88305; J7120; A4648; J2405

== ENCOUNTER → 2023-09-21 | Outpatient (CLI) | payer OTHER, SELFPAY ==
[2023-09-21 12:40] LABS: Rubella IgG Reactive (Nonreactive)
[2023-09-25 20:08] LABS: B. pertussis IgG 1.43 index (0.00-0.94); HEPATITIS B SURFACE AG Negative (Negative); Hep C Antibodies Non Reactive (Non Reactive); Hepatitis A IgM Antibody Negative (Negative); Hepatitis B Core AB IgM Negative (Negative); QNTFERON TB Mitogen Value > 10.00 IU/mL (.); QNTFERON TB Nil Value 0.05 IU/mL (.); QNTFERON TB1+ Ag Value 0.04 IU/mL (.); QNTFERON TB2+ Ag Value 0.05 IU/mL (.); QNTIFERON TB Positive Criteria Negative (Negative); V-Zoster IgG (Immunity) > 4000 index (Immune >165)
== END | disposition home or self-care (01) ==
LOC: LAB 11:10
PROVIDERS: PCP Family Medicine; Referring Provider Internal Medicine Gastroenterology; Visit Provider Internal Medicine Gastroenterology
DX: K51.90 Ulcerative colitis, unspecified, without complications (principal)
CPT/HCPCS: 36415; 80074; 86480; 86615; 86735; 86762; 86787

== ENCOUNTER → 2023-11-05 | Outpatient (CLI) | payer OTHER, SELFPAY ==
--- NOTE | 2023-11-05 12:43 | US_ITS ---
INDICATION: OVARIAN CYST EXAMINATION: Ultrasound US Pelvis Non OB Complete With Transvaginal Imaging TECHNIQUE: Transabdominal and transvaginal pelvic ultrasound was performed. Grayscale, spectral waveform, and color flow Doppler evaluation of the adnexa. COMPARISON: None. FINDINGS: UTERUS: Anteverted. The uterus measures 5.5 x 3.9 x 2.1 cm. There is no uterine mass. The endometrial stripe measures 1.2 mm in AP diameter which is within normal limits. RIGHT OVARY: 2.3 x 1.9 x 1.2 cm. Non-enlarged, normal echogenicity. Doppler color flow demonstrated, no waveforms obtained. LEFT OVARY: Obscured by bowel gas. FREE FLUID: None. US/Pelvic w/ Transvaginal IMPRESSION: Unremarkable pelvic ultrasound. No right ovarian cyst. Left ovary obscured by bowel gas. Electronically Signed: Brock Vincent MD at 0:44 EST ,
--- OUTSIDE RECORDS SUMMARY | 2023-11-05 13:07 | XMS RPT_ITS | CCD ---
Author Name Unknown Address [address] [place] [address] Organization [facility] Care Team Providers Care Rebar Bender Name Role Phone SUKH CASTLE MD Primary Care Physician WALDO JULES, WANG Attending Unavailable SUKH CASTLE MD Primary Care Unavailable WANG HAAS MD Attending Unavailable SUKH CASTLE MD Primary Care Unavailable Allergies Allergy Classification Reported Allergen(s) Allergy Type Date of Onset Reaction(s) Facility (2 sources) Cashew nut Food allergy itching [facility] Services (2 sources) Penicillins; Translations: [penicillins] Drug allergy rash [facility] Services Medications Current Medications Medication Drug Class(es) [...] 08-29-2023 Patient encounter procedure WANG HAAS MD [facility] Start: 08-20-2023 ambulatory WANG HAAS MD Facilit y:B Start: 08-20-2023 Encounter for gynecological examination (general) (routine) without abnormal findings WANG AHAS MD Facility:B Start: 08-20-2023 End: 08-24-2023 Outreach Lab WANG HAAS MD [facility] Procedures Date Procedure Procedure Detail Performing Clinician Start: 09-17-2021 Loop electrosurgical excision procedure of cervix WANG HAAS MD Colposcopy WANG HAAS MD Payers Date Payer Category Payer Unknown [id number] 2023 Unknown [id number] 1965 Unknown [id number] 1965 Unknown [id number] Social History Date Type Detail Facility Start: 08-20-2023 Tobacco smoking status Never s moked tobacco (finding) [facility] Sex Assigned At [facility] Clinical Notes 08-23-2023 Radiology Note Date & Type Note Facility 08-23-2023 Note NEGATIVE FOR INTRAEPITHELIAL LESION OR MALIGNANCY [facility] 08-23-2023 Note NEGATIVE FOR INTRAEPITHELIAL LESION OR MALIGNANCY [facility] 08-23-2023 Note NEGATIVE FOR INTRAEPITHELIAL LESION OR MALIGNANCY [facility] 08-23-2023 Note NEGATIVE FOR INTRAEPITHELIAL LESION OR MALIGNANCY [facility] 08-23-2023 Note NEGATIVE FOR INTRAEPITHELIAL LESION OR MALIGNANCY [facility] 08-23-2023 Note NEGATIVE FOR INTRAEPITHELIAL LESION OR MALIGNANCY [facility] 08-23-2023 Note NEGATIVE FOR INTRAEPITHELIAL LESION OR MALIGNANCY [facility] 08-23-2023 Note NEGATIVE FOR INTRAEPITHELIAL LESION OR MALIGNANCY [facility] Evaluation + Plan note Future Appointments Appointment Date:08/29/2023 07:30:00 AM Scheduled Provider: Location:[facility] Appointment Type:US Pelvis Non-OB W/Transvaginal Future Scheduled TestsUS Pelvis Non-OB W/Transvaginal 08/29/23 [facility] Hospital course Narrative No data available for this section [facility] Hospital Discharge instructions No data available for this section [facility] Progress note No data available for this section [facility] Summary Purpose Family History No Family History Records Found Advance Directives No Advanced Directives Records Found Additional Source Comments Patient Care team informatio n (unrecognized section and content) Care Team Personnel Name: SUKH CASTLE MD Member Role: Primary Care Physician Address: Address: [address] Care Team Related Persons Name: NO, NO Care Team Personnel Name: SUKH CASTLE MD Member Role: Primary Care Physician Address: Address: [place] [address] Care Team Related Persons Name: NO, [...] BE BASED ON THE PRIMARY CLINICAL RECORDS. [facility] [employer] [facility]. provides no warranty or guarantee of the accuracy or completeness of information in this document.
== END | disposition home or self-care (01) ==
PROVIDERS: PCP Family Medicine
DX: N83.209 Unspecified ovarian cyst, unspecified side (principal)
CPT/HCPCS: 76830; 76856

== ENCOUNTER → 2024-03-26 | Outpatient (CLI) | payer OTHER, SELFPAY ==
[2024-03-26 09:19] LABS: Erythrocyte Sedimentation Rate 1 mm/hr (0-30)
[2024-03-26 09:58] LABS: CRP < 2.90 mg/L (0.0-3.0)
[2024-04-02 16:10] LABS: Calprotectin, Stool <5 ug/g (0-120)
== END | disposition home or self-care (01) ==
PROVIDERS: PCP Family Medicine; Referring Provider Internal Medicine Gastroenterology; Visit Provider Internal Medicine Gastroenterology
DX: K51.90 Ulcerative colitis, unspecified, without complications (principal)
CPT/HCPCS: 36415; 83630; 83993; 85652; 86140

== ENCOUNTER → 2024-06-26 | Outpatient (CLI) | payer OTHER, SELFPAY ==
[2024-06-26 15:07] LABS: Absolute Lymphocyte Count 2.51 X10^3/uL (0.83-4.51); Absolute Neutrophil Count 2.9 X10^3/uL (2.0-7.7); Basophil# 0.05 X10^3/uL; Basophil% 0.8 % (0-1); Eosinophil# 0.08 X10^3/uL; Eosinophils% 1.3 % (0-5); Hematocrit 41.9 % (37-47); Hemoglobin 13.2 g/dL (12.0-15.0); Lymphocyte # 2.51 X10^3/ul (0.83-4.51); Lymphocyte % 41.7 % (19-41); Mean Corp Hgb Conc 31.5 g/dL (32-36); Mean Corpuscular Hgb 28.5 pg (27.0-32.0); Mean Corpuscular Volume 90.5 fL (81-99); Mean Platelet Vol. 11.3 fl (6.2-12.0); Monocyte# 0.46 X10^3/uL; Monocyte% 7.6 % (0-10); NRBC Flagged by Analyzer 0 % (0-5); Neutrophil # 2.91 X10^3/uL (2.7-7.7); Neutrophil % 48.4 % (47-70); Platelet Count 269 K/mm3 (150-450); RBC Distribution Width CV 13.1 % (11.6-14.6); Red Blood Count 4.63 M/mm3 (4.2-5.4)
[2024-06-26 15:29] LABS: Vitamin B12 960 pg/mL (211-911); Vitamin D,25 Hydroxy 58.6 ng/mL
[2024-06-26 15:32] LABS: Hemoglobin A1c 5.4 % (3.8-5.6)
[2024-06-26 16:09] LABS: ALB/GLOB Ratio 1.1 RATIO (0.9-2.4); AST(SGOT) 18 U/L (15-37); Alanine Aminotransfer ALT/SGPT 30 U/L (13-56); Albumin, Serum 3.8 g/dL (3.2-5.0); Alkaline Phosphatase 91 U/L (45-117); Anion Gap 8 (5-15); BUN 14 mg/dL (7-18); BUN/Creat Ratio 17.6 RATIO (10-20); Calcium,Total 9.3 mg/dL (8.5-10.1); Chloride 108 mmol/L (98-107); Creatinine, Serum 0.79 mg/dL (0.55-1.02); EST Glomerular Filtration Rate 78 mL/min (>60); Est Glom Filt Rate - Afr Amer 95 mL/min (>60); Ferritin 19 ng/mL (8-252); Globulin 3.4 g/dL (2.2-4.2); Glucose 90 mg/dL (74-106); Protein, Total 7.2 g/dL (6.4-8.2); Sodium Level 140 mmol/L (136-145)
== END | disposition home or self-care (01) ==
LOC: MFPLAB 11:52
PROVIDERS: PCP Family Medicine; Visit Provider Family Medicine
DX: K51.90 Ulcerative colitis, unspecified, without complications (principal); D64.9 Anemia, unspecified; E55.9 Vitamin D deficiency, unspecified; Z13.220 Encounter for screening for lipoid disorders
CPT/HCPCS: 36415; 80053; 80061; 82306; 82607; 82728; 82746; 83036; 83704; 85025

== ENCOUNTER → 2024-07-25 | Outpatient (CLI) | payer OTHER, SELFPAY ==
[2024-07-28 14:09] LABS: CHOLESTEROL TOTAL 244 mg/dL (100-199); HDL-C 88 mg/dL (>39); HDL-P TOTAL 35.4 umol/L (>=30.5); INSULIN RESISTANCE SCORE <25 (<=45); LDL SIZE 22.2 nm (>20.5); LDL-C (NIH CALC) 145 mg/dL (0-99); LDL-P 1160 nmol/L (<1000); SMALL LDL-P <90 nmol/L (<=527); TRIGLYCERIDES 64 mg/dL (0-149)
== END | disposition home or self-care (01) ==
LOC: MFPLAB 09:41
PROVIDERS: PCP Family Medicine; Visit Provider Family Medicine
DX: Z13.220 Encounter for screening for lipoid disorders (principal)
CPT/HCPCS: 36415; 80061; 83704

== ENCOUNTER → 2024-08-22 | Outpatient (CLI) | payer OTHER, SELFPAY ==
--- NOTE | 2024-08-22 10:22 | BD_ITS ---
STUDY: DUAL ENERGY X-RAY ABSORPTIOMETRY / DXA REASON FOR EXAM: Female, 59 years old. V76.12ScreeningBONE DENSITY REASON FOR EXAM TECHNIQUE: Bone Mineral Density (BMD) measurements of lumbar spine and right hip were obtained. COMPARISON: None. FINDINGS: Lumbar Spine (L1-L4): g/cm2 (0.773) / T-score (-2.5) / Z-score (-1.0) Findings are suggestive of osteoporosis with a high fracture risk. Right Femur Total: g/cm2 (0.745) / T-score (-1.6) / Z-score (-0.6) Right Femoral Neck: g/cm2 (0.544) / T-score (-2.7) / Z-score (ice 1.4) BD/Dexa Bone Density Study IMPRESSION: The patient is considered osteoporotic as outlined below according to World Higinio Organization (WHO) criteria with a high fracture risk. Reference Information: The T-score is the number of standard deviations above or below the standard which is normal for young adults at their peak bone mineral density. The World Health Organization (WHO) interprets the T-scores as follows: Above -1 Normal bone density Between -1 and -2.5 Osteopenia Equal to / or below -2.5 Osteoporosis As a practical clinical guideline, osteopenia may be graded as follows: Mild -1 through -1.5 Moderate -1.6 through -2.0 Severe -2.1 through -2.4 The Z-score is the number of standard deviations above or below age-matched controls. A Z-score of less than -1.5 would be considered abnormal. References: 1. NIH Osteoporosis and Related Bone Diseases www osteo.org 2. International Society for Clinical Densitometry www iscd.org 3. National Osteoporosis Foundation www nof.org Electronically Signed: Shiva Irving MD at 12:00 EST ,
--- NOTE | 2024-08-22 10:22 | BI_ITS ---
MAMMOGRAPHY - BILATERAL SCREENING REASON FOR EXAM: Female, 59 years old. Routine annual screening examination. PERTINENT HISTORY: Non-contributory. TECHNIQUE: Digital bilateral breast angela (3D mammographic acquisition) in the CC and MLO projections. 2-D mediolateral oblique (MLO) and craniocaudad (CC) views of both breasts were obtained. CAD: Full Field Digital Mammography with Computer Added Detection was performed. COMPARISON: Comparison is made with prior study August 06, 2023 and August 23, 2017. FINDINGS: Breast Composition: The breasts are heterogeneously dense, which may obscure small masses. There are no dominant masses or suspicious calcifications. Small bilateral axillary lymph nodes. No other significant abnormalities are identified. There has been no significant change since the prior study. BI/SCRN MAMM (CAD)W/ANGELA BILAT IMPRESSION: Stable bilateral screening mammogram. Yearly follow-up mammogram recommended. (A) ASSESSMENT CATEGORY: BIRADS Category 2: Benign. A letter regarding these results will be sent to the patient by the facility within 30 days. Approximately 10% of breast cancers are not detected by mammography. A normal mammogram should not delay biopsy of a clinically suspicious abnormality. [id number] Electronically Signed: Shiva Irving MD at 12:18 EST ,
== END | disposition home or self-care (01) ==
LOC: OPBD 10:14
PROVIDERS: PCP Family Medicine; Referring Provider Family Medicine; Visit Provider Family Medicine
DX: Z00.00 Encounter for general adult medical examination without abnormal findings (principal); Z12.31 Encounter for screening mammogram for malignant neoplasm of breast; M81.0 Age-related osteoporosis without current pathological fracture
CPT/HCPCS: 77063; 77067; 77080

== ENCOUNTER → 2024-09-25 | Outpatient (CLI) | payer OTHER, SELFPAY ==
[2024-09-25 10:26] LABS: Erythrocyte Sedimentation Rate 1 mm/hr (0-30)
[2024-09-25 10:47] LABS: CPK Total, Creatine Kinase 85 U/L (26-192); CRP < 2.90 mg/L (0.0-3.0)
[2024-09-26 15:07] LABS: Aldolase 3.5 U/L (3.3-10.3)
== END | disposition home or self-care (01) ==
PROVIDERS: PCP Family Medicine; Referring Provider Internal Medicine Gastroenterology; Visit Provider Internal Medicine Gastroenterology
DX: K51.90 Ulcerative colitis, unspecified, without complications (principal)
CPT/HCPCS: 36415; 82085; 82550; 85652; 86140

== ENCOUNTER → 2024-10-14 | Outpatient (CLI) | payer SELFPAY | END | disposition home or self-care (01) | PROVIDERS: PCP Family Medicine; Referring Provider Obstetrics & Gynecology Gynecology; Visit Provider Obstetrics & Gynecology Gynecology | DX: M81.0 Age-related osteoporosis without current pathological fracture (principal) | CPT/HCPCS: 76499 ==

== ENCOUNTER → 2025-03-31 | Outpatient (CLI) | payer OTHER, SELFPAY ==
[2025-03-31 11:28] LABS: Vitamin D,25 Hydroxy 49.8 ng/mL (30-100)
[2025-03-31 11:34] LABS: CRP < 3.00 mg/L (0.0-3.0)
[2025-04-03 13:08] LABS: Vitamin D 1,25-Dihydroxy 91.3 pg/mL (24.8-81.5)
== END | disposition home or self-care (01) ==
PROVIDERS: PCP Family Medicine; Referring Provider Internal Medicine Gastroenterology; Visit Provider Internal Medicine Gastroenterology
DX: K51.90 Ulcerative colitis, unspecified, without complications (principal)
CPT/HCPCS: 36415; 82306; 82652; 85652; 86140

== ENCOUNTER → 2025-07-14 | Outpatient (CLI) | payer OTHER, SELFPAY ==
[2025-07-14 12:35] LABS: Hematocrit 39.8 % (37-47); Hemoglobin 12.9 g/dL (12.0-15.0); Immature Granulocytes Count 0.010 X10^3/uL (0.0-0.0); Mean Corp Hgb Conc 32.4 g/dL (32-36); Mean Corpuscular Volume 91.1 fL (81-99); Mean Platelet Vol. 10.8 fl (6.2-12.0); NRBC Flagged by Analyzer 0 % (0-5); Platelet Count 254 K/mm3 (150-450); RBC Distribution Width CV 13.2 % (11.6-14.6); RBC Distribution Width SD 44.0 fl (35.1-43.9); Red Blood Count 4.37 M/mm3 (4.2-5.4); White Blood Count 5.4 K/mm3 (4.4-11.0)
[2025-07-14 13:04] LABS: PTHIN 84 pg/mL (11-61)
[2025-07-14 13:14] LABS: FOLATES,SERUM (FOLIC ACID) 17.90 ng/mL (4.60-34.80)
[2025-07-14 13:24] LABS: AST(SGOT) 22 U/L (<=31); Alanine Aminotransfer ALT/SGPT 20 U/L (<=34); Albumin, Serum 4.3 g/dL (3.4-4.8); Alkaline Phosphatase 41 U/L (35-104); Anion Gap 9 (5-15); BUN 14 mg/dL (4-19); BUN/Creat Ratio 21.7 RATIO (10-20); Calcium,Total 9.1 mg/dL (7.6-11.0); Carbon Dioxide 24.5 mmol/L (21.0-32.0); Chloride 106 mmol/L (98-108); Ferritin 30 ng/mL (22-378); Globulin 2.5 g/dL (2.2-4.2); Glucose 95 mg/dL (70-99); Potassium 4.2 mmol/L (3.3-5.1); Vitamin B12 1025 pg/mL (180-914); Vitamin D,25 Hydroxy 43.6 ng/mL (30-100)
[2025-07-14 13:45] LABS: CRP < 3.00 mg/L (0.0-3.0); Iron 172 ug/dL (50-170); Iron Binding Capacity,Total 315 ug/dL (250-450); Iron Binding Capacity,Unsat 143 ug/dL (228-428); Uric Acid 3.1 mg/dL (2.6-6.0)
[2025-07-21 10:08] LABS: Arsenic 7245 2 ug/L (0-9); Lead, Blood < 1.0 ug/dL (0.0-3.4); Mercury, Blood 85324 < 1.0 ug/L (0.0-14.9)
== END | disposition home or self-care (01) ==
LOC: MFPLAB 09:45
PROVIDERS: PCP Family Medicine; Visit Provider Family Medicine
DX: D64.9 Anemia, unspecified (principal); K51.90 Ulcerative colitis, unspecified, without complications; M81.0 Age-related osteoporosis without current pathological fracture
CPT/HCPCS: 36415; 80053; 82175; 82306; 82607; 82728; 82746; 83540; 83550; 83655; 83825; 83970; 84443; 84550; 85025; 85652; 86140

== ENCOUNTER → 2025-08-26 | Outpatient (CLI) | payer OTHER, SELFPAY ==
--- NOTE | 2025-08-26 07:08 | BI_ITS ---
EXAM: SCRN MAMM (CAD)W/ANGELA BILAT DATE: 08/26/2025 CLINICAL HISTORY: F, Age 60 y/o , SCREENING No family history. TECHNIQUE: Procedure Code: [id number] Modality: MG Procedure: SCRN MAMM (CAD)W/ANGELA BILAT COMPARISON: Prior exam(s) dated August 22, 2024.. FINDINGS: TISSUE DENSITY: The breasts are heterogeneously dense, which may obscure small masses. Bilateral Breast Mammographic Findings: No significant masses, calcifications or other abnormalities are identified. Stable small benign-appearing bilateral axillary lymph nodes. No suspicious masses, areas of developing architectural distortion, or suspicious calcifications. There has been no significant interval change. BI/SCRN MAMM (CAD)W/ANGELA BILAT IMPRESSION: Stable bilateral screening mammogram. OVERALL FINAL ASSESSMENT BI-RADS 2: BENIGN RECOMMENDATION: Routine annual follow-up in 1 Year Additional Recommendation none A letter with findings and recommendations will be mailed to the patient. Reading Location: [facility]
--- OUTSIDE RECORDS SUMMARY | 2025-08-26 07:15 | XMS RPT_ITS | CCD ---
Author Organization [facility]ini[facility] Care Team Providers Care Senior Corporate Accountant Name Role Phone SUKH SAMSON MD Primary Care Physician [phone] Dr. Sukh Samson Primary Care Provider [phone] Luz Avila Attending Provider Unavailable Dr. Sukh Samson Referring Provider Dr. Sarkis Hope Attending Provider [phone] Dr. Sarkis Hope Other Provider SUKH SAMSON MD Primary Care Unavailable TRINITY HAAS MD Attending Unavailable TRINITY HAAS MD Attending Unavailable SUKH SAMSON MD A Primary Care Unavailable Dr. Sukh Samson MD Primary Care Provider Dr. Sukh Samson MD Referring Provider [phone] Sarkis SMITH Attending Provider Friend Dr. Sarkis SMITH Referring Provider SUKH SAMSON MD Primary Care Unavailable TRINITY HAAS MD Attending Unavailable Friend, Sarkis Attending Unavailable Samson, Sukh Referring Unavailable Samson, Sukh Primary Care Unavailable Friend, Sarkis Attending Unavailable Samson, Sukh Primary Care Unavailable Samson, Sukh Referring Unavailable Friend, Sarkis Referring Unavailable Samson, Sukh Primary Care Unavailable Friend, Sarkis Attending Unavailable Friend, Sarkis Attending Unavailable Samson, Sukh Primary Care Unavailable Friend, Sarkis Referring Unavailable Samson, Sukh Primary Care Unavailable Referred, Self Attending Unavailable Referred, Self Referring Unavailable Samson, Sukh Consulting Unavailable Samson, Sukh Attending Unavailable Samson, Sukh Primary Care Unavailable Samson, Sukh Primary Care Unavailable Waldo Trinity Attending Unavailable Waldo Trinity Referring Unavailable Samson, Sukh Primary Care Unavailable Samson Sukh Attending Unavailable Samson, Sukh Referring Unavailable Samson, Sukh Primary Care Unavailable SamsonSethic Attending Unavailable Allergies Allergy Classification Reported Allergen(s) Allergy Type Date of Onset Reaction(s) Facility (11 sources) cashew nut allergenic extract Drug Allergy 2 [facility] (2 sources) any type of cillin Allergy to substance 2 [facility] Work Phone: (10 sources) Amoxicillin Drug Allergy 2 [facility] (10 sources) Penicillins Allergy to substance 2 [facility] (4 sources) Cashew nut Food allergy itching [facility] (3 sources) Penicillins; Translations: [penicillins] Drug allergy [facility] Comment on above: allergic to all the 'cillins. (4 sources) Poison [place] Allergy to substance severe blisters [facility] (1 source) Penicillin; Translations: [penicillins] Drug Allergy [facility] Comment on above: allergic to all the 'cillins. (1 source) Amoxicillin Drug Allergy 4 [facility] (1 source) cashew nut allergenic extract Drug Allergy 4 [facility] (1 source) Penicillins Drug allergy (disorder) 4 [facility] Medications Current Medications Medication Drug Class(es) Dates Sig (Normalized) Sig (Original) Ahcc (7 sources) Start: 06-16-2022 take 2 capsules by mouth once daily Ahcc Active 2 CAP SL/PO DAILY June 15, 2022 11:00pm Start: 06-16-2022 take 2 capsules by m out once daily Ahcc Active 2 CAP SL/PO DAILY June 16, 2022 12:00am C-ESTRIOL 1MG/ML VAG CRM (1 source) Start: 04-03-2025 cholecalciferol 0.025 mg oral capsule (12 sources) Vitamin D Start: 06-16-2022 take 1 capsule by mouth once daily Cholecalciferol (Vitamin D3) (Vitamin D3) 25 mcg (1,000 unit) Capsule Active 25 ug PO DAILY June 16, 2022 12:00am Estriol vaginal cream (2 sources) Start: 08-20-2023 Estriol vagina l cream Estriol vaginal cream, 0 Refill(s) Start Date: 08/20/23 Status: Ordered ferrous sulfate (3 sources) Start: 08-20-2023 ferrous sulfat e Oral, 0 Refill(s) Start Date: 08/20/23 Status: Ordered Lactobacillus acidophilus (7 sources) Start: 07-07-2025 take 1 tablet by mouth once daily Acidophilus oral tablet Oral, qDay, 0 Refill(s) Start Date: 07/07/25 Status: Ordered Medication Dispense Status: Completed Total Allowed Fills: 1 Fills Dispensed: 0 Start: 03-26-2024 End: 03-14-2025 Lactobacillus Acidophilus 50 0 million cell capsule Discontinued 500 NMA PO THREE TIMES A DAY 540 180 0 September 15, 2024 3:23pm March 13, 2025 12:00am March 14, 2025 12:09am magnesium oxide 250 mg oral tablet (3 sources) Start: 08-20-2023 Magnesium 250 mg tablet Dose : 500 mg = 2 tab(s), Oral, qDay, 0 Refill(s) Start Date: 08/20/23 Status: Ordered mesalamine 1200 mg delayed release oral tablet (20 sources) Aminosalicylate Start: 07-07-2025 mesalamine 1.2 g oral delayed release tablet Dose : 2.4 gram(s) = 2 tab(s), Oral, qDay, PRN abdominal discomfort, # 112 tab(s), 0 Refill(s) Start Date: 07/07/25 Status: Ordered Medication Dispense Status: Completed Quantity: 112.0 Unit: tab(s) Total Allowed Fills: 1 Fills Dispensed: 0 Start: 07-30-2024 End: 01-16-2025 take 2 tablets by mouth twice daily Mesalamine 1.2 gram tablet,delayed release (DR/EC) Discontinued 2.4 g PO TWICE A DAY 224 56 3 January 09, 2025 2:48pm January 16, 2025 2:28pm Start: 01-21-2024 End: 07-30-2024 take 2 tablets by mouth once daily Mesalamine 1.2 gram tablet,delayed release (DR/EC) Discontinued 2.4 g PO DAILY 180 56 3 January 21, 2024 9:42am July 30, 2024 2:03pm Start: 11-05-2023 End: 01-21-2024 Mesalamine 4 gram/60 mL enem a Discontinued 4 g RC TWICE A DAY 3600 30 3 January 18, 2024 3:05pm January 21, 2024 9:42am two times a day for two weeks then as needed Start: 10-18-2023 End: 12-31-2023 take 2 tablets by mouth once daily Mesalamine 1.2 gram tablet,delayed release (DR/EC) Discontinued 2.4 g PO DAILY 112 56 0 November 05, 2023 12:43pm December 30, 2023 12:00am December 31, 2023 12:06am Start: 10-18-2023 End: 11-05-2023 take 2.4 g by mouth once daily Mesalamine Active 2.4 G M PO DAILY 112 56 November 05, 2023 11:43am Multivitamin preparation (13 sources) Start: 08-20-2023 take 1 tablet by mouth once daily Multivitamin Dose = 1 tab(s), Oral, Daily, 0 Refill(s) Start Date: 08/20/23 Status: Ordered Start: 06-16-2022 take 1 capsule by mo uth once daily Multivitamin Active 1 CAP PO DAILY June 15, 2022 11:00pm Start: 06-16-2022 take 1 capsule by mo uth once daily Multivitamin Active 1 CAP PO DAILY June 16, 2022 12:00am Nmn (7 sources) Start: 06-16-2022 Nmn Active 1 P ACKET SL/PO DAILY June 15, 2022 11:00pm Start: 06-16-2022 Nmn Active 1 P ACKET SL/PO DAILY June 16, 2022 12:00am resveratrol 100 mg oral capsule (7 sources) Start: 06-16-2022 take 100 mg by mouth once daily Resveratrol Active 100 MG PO DAILY June 15, 2022 11:00pm turmeric extract 500 mg oral capsule (2 sources) Start: 08-20-2023 turmeric 500 m g oral capsule 0 Refill(s) Start Date: 08/20/23 Status: Ordered vitamin B12 (3 sources) Vitamin B12 Start: 08-20-2023 Vitamin B12 0 Refill(s) Start Date: 08/20/23 Status: Ordered Vitamin D and K oral tablet (3 sources) Start: 08-20-2023 Vitamin D and K oral tablet 0 Refill(s) Start Date: 08/20/23 Status: Ordered Zinc (3 sources) Start: 08-20-2023 take 1 dose by mouth once daily Zinc Dose : 140 mg =, Oral, qDay, 0 Refill(s) Start Date: 08/20/23 Status: Ordered Completed/Discontinued Medications Medication Drug Class(es) Dates Sig (Normalized) Sig (Original) Cyanocobalamin-Live r Extract (Vitamin Y34-Gwkhz) Tablet (12 sources) Start: 06-16-2022 End: 03-26-2024 Cyanocobalamin-Liver Extract (Vitamin C09-Nsmzj) Tablet Discontinued 1 {tbl} PO FR June 16, 2022 12:00am March 26, 2024 7:32am Start: 06-16-2022 Cyanocobalamin -Liver Extract (Vitamin C78-Gluwl) Tablet Active 1 TABLET PO FR June 15, 2022 11:00pm Start: 06-16-2022 Cyanocobalamin -Liver Extract (Vitamin D48-Ifxpz) Tablet Active 1 TABLET PO FR June 16, 2022 12:00am estradiol 0.1 mg/ml vaginal cream (3 sources) Estrogen Start: 08-20-2023 Estrace Vagina l 0.1 mg/g vaginal cream Dose = 1 appl, Vaginal, 2X/week, # 42.5 gram(s), 0 Refill(s), other reason (Rx), Well woman exam Adnexal mass Start Date: 08/20/23 Status: Ordered imiquimod 50 mg/ml topical cream (12 sources) Start: 04-07-2021 End: 05-19-2021 Imiquimod 5 % cream in packet Discontinued 4 mmol TOPICAL 5 times per week 30 42 0 April 07, 2021 12:00am May 18, 2021 12:00am May 19, 2021 12:01am apply once daily Sunday through Sunday before bedtime FOR 6 weeks. metFORMIN hydrochloride 500 mg oral tablet (11 sources) Biguanide Start: 07-11-2022 End: 08-22-2023 Metformin 500 mg tablet Discontinued 250 mg PO TWICE A DAY July 11, 2022 12:00am August 22, 2023 11:38am Start: 07-11-2022 End: 08-22-2023 take 250 mg by mouth twice daily Metformin Discontinued 250 MG PO TWICE A DAY July 10, 2022 11:00pm August 22, 2023 10:38am Multivitamin Capsule (2 sources) Start: 06-16-2022 End: 03-26-2024 Multivitamin Capsule Discontinued 1 NMA PO DAILY June 16, 2022 12:00am March 26, 2024 7:33am Drexel-3 Fatty Acids (Fish Oil) Capsule (12 sources) Start: 06-16-2022 End: 03-26-2024 take 1 capsule by mouth once daily Drexel-3 Fatty Acids (Fish Oil) Capsule Discontinued 1000 mg PO DAILY June 16, 2022 12:00am March 26, 2024 7:33am Start: 06-16-2022 take 1 capsule by mo uth once daily Drexel-3 Fatty Acids (Fish Oil) Capsule Active 1000 MG PO DAILY June 15, 2022 11:00pm Start: 06-16-2022 take 1 capsule by mo ut once daily Drexel-3 Fatty Acids (Fish Oil) Capsule Active 1000 MG PO DAILY June 16, 2022 12:00am quercetin 500 mg oral capsule (5 sources) Start: 09-14-2023 End: 03-26-2024 take 1 capsule by mouth once daily Quercetin 500 mg capsule Discontinued 500 mg PO DAILY September 14, 2023 1:00am March 26, 2024 7:33am ubidecarenone 100 mg oral capsule (12 sources) Start: 06-16-2022 End: 03-26-2024 Coenzyme Q10 (Coq-10) 100 mg Capsule Discontinued 100 mg PO DAILY June 16, 2022 12:00am March 26, 2024 7:32am vitamin k2 0.1 mg oral capsule (12 sources) Start: 06-16-2022 End: 03-26-2024 Vitamin K2 100 mcg Capsule Discontinued 100 ug PO DAILY June 16, 2022 12:00am March 26, 2024 7:33am Problems Active Problems Problem Classification Problem Date Documented Da te Episodic/Chronic Deficiency and other anemia (12 sources) Anemia; Translations: [Anemia, unspecified] 04-05-2021 Episodic Heart valve disorders (12 sources) Heart murmur; Translations: [Cardiac murmur, unspecified] 04-05-2021 Episodic Osteoporosis (1 source) Age-related osteoporosis without current pathological fracture; Translations: [Age-related osteoporosis without current pathological fracture] Onset: 11-14-2024 Chronic Other gastrointestinal disorders (12 sources) Irritable bowel syndrome; Translations: [Irritable bowel syndrome without diarrhea] 04-05-2021 Chronic Other skin disorders (12 sources) Actinic keratosis; Translations: [Actinic keratosis] 04-07-2021 Episodic Comment on above: 1.5 cm tannish actin ic lesion right lateral cheek by lower eyelid Regional enteritis and ulcerative colitis (9 sources) Ulcerative colitis; Translations: [Ulcerative colitis, unspecified, without complications] Onset: 04-03-2025 09-20-2023 Chronic Residual codes; unclassified (12 sources) History finding; Translations: [Other specified health status] 04-05-2021 Episodic Residual codes; unclassified (12 sources) Family history of malignant neoplasm of skin; Translations: [Family history of malignant neoplasm of other organs or systems] 04-07-2021 Episodic Varicose veins of lower extremity (12 sources) Bilateral spider veins of lower limbs; Translations: [Asymptomatic varicose veins of bilateral lower extremities] 04-07-2021 Episodic Comment on above: lateral legs, research quality assurance specialist ior knees, lateral distal thigh areas Past or Other Problems Problem Classification Problem Date Documented Da [...] conditions (not mental disorders or infectious disease) (20 sources) Patient encounter status; Translations: [Encounter for screening for malignant neoplasm of colon] Onset: 08-20-2023 12-19-2021 Episodic Residual codes; unclassified (2 sources) Pallor; Translations: [Pallor] Onset: 08-20-2023 Episodic Results Test Name Value Interpretation Reference Range Facility Heavy Metals, Bloodon 2024 ARSENIC,BLOOD 2 ug/L Normal 0-9 [facility] Comment on above: Order Comment: Test( s) [id number], Blood; [id number]-Qcquqnz, Blood; [id number]-Yynvnyx, Bloodwas developed and its performance characteristicsdetermined by [employer] It has not been cleared or approvedby the Food and Drug Administration. Result Comment: Dete ction Limit = 1 Performed By: #### L 503.6030, L509.1000, L506.1001, L506.0200, L503.0106, L501.9520, L501.1400, L100.0100, L500.4050, L101.9900, L3100.6425, L503.6550, L501.6710 ####[facility] [id number] [place], [address] LEAD, BLOOD < 1.0 Normal 0.0-3.4 [facility] Comment on above: Order Comment: Test( s) [id number], Blood; [id number]-Nnxndhw, Blood; [id number]-Lrknzwo, Bloodwas developed and its performance characteristicsdetermined by [employer] It has not been cleared or approvedby the Food and Drug Administration. Result Comment: Test ing performed by Inductively coupled plasma/Mass Spectrometry. Environmental Exposure: WHO Recommendation <5.0 Occupational Exposure: OSHA Lead Std 40.0 ESCOBAR 30.0 Detection Limit = 1.0 Performed By: #### L 503.6030, L509.1000, L506.1001, L506.0200, L503.0106, L501.9520, L501.1400, L100.0100, L500.4050, L101.9900, L3100.6425, L503.6550, L501.6710 ####[facility] [id number] [place], [address] MERCURY,BLOOD < 1.0 Normal 0.0-14.9 [facility] Comment on above: Order Comment: Test( s) [id number], Blood; [id number], Blood; [id number]-Hjnevad, Bloodwas developed and its performance characteristicsdetermined by [employer] It has not been cleared or approvedby the Food and Drug Administration. Result Comment: Dete ction Limit = 1.0 Performed at: [address] [id number] Aircraft Assembler: Erasmo Cancino MD, Phone: [phone] Performed By: #### L 503.6030, L509.1000, L506.1001, L506.0200, L503.0106, L501.9520, L501.1400, L100.0100, L500.4050, L101.9900, L3100.6425, L503.6550, L501.6710 ####[facility] [address] [place], [place], [id number] CBC W/Diff, Automatedon 10-2 Absolute Neut 2.9 X10 3/uL Normal 2.0-7.7 [facility] Comment on above: Performed By: #### L 503.6030, L509.1000, L506.1001, L506.0200, L503.0106, L501.9520, L501.1400, L100.0100, L500.4050, L101.9900, L3100.6425, L503.6550, L501.6710 #### [facility] [address] [place], [place], [id number] Erythrocyte distribution width (RBC) [Ratio] 13.2 % Normal 11.6-14.6 [facility] Comment on above: Performed By: #### L 503.6030, L509.1000, L506.1001, L506.0200, L503.0106, L501.9520, L501.1400, L100.0100, L500.4050, L101.9900, L3100.6425, L503.6550, L501.6710 #### [facility] [address] [place], [place], [id number] Hematocrit (Bld) [Volume fraction] 39.8 % Normal 37-47 [facility] Comment on above: Performed By: #### L 503.6030, L509.1000, L506.1001, L506.0200, L503.0106, L501.9520, L501.1400, L100.0100, L500.4050, L101.9900, L3100.6425, L503.6550, L501.6710 #### [facility] [address] [place], [place], [id number] (628) Hemoglobin (Bld) [Mass/Vol] 12.9 g/dL Normal 12.0-15.0 [facility] Comment on above: Performed By: #### L 503.6030, L509.1000, L506.1001, L506.0200, L503.0106, L501.9520, L501.1400, L100.0100, L500.4050, L101.9900, L3100.6425, L503.6550, L501.6710 #### [facility] [address] [place], [place], [id number] (501) MCH (RBC) [Entitic mass] 29.5 pg Normal 27.0-32.0 [facility] Comment on above: Performed By: #### L 503.6030, L509.1000, L506.1001, L506.0200, L503.0106, L501.9520, L501.1400, L100.0100, L500.4050, L101.9900, L3100.6425, L503.6550, L501.6710 #### [facility] [address] [place], [place], [id number] (469) MCHC (RBC) [Mass/Vol] 32.4 g/dL Normal 32-36 [facility] Comment on above: Performed By: #### L 503.6030, L509.1000, L506.1001, L506.0200, L503.0106, L501.9520, L501.1400, L100.0100, L500.4050, L101.9900, L3100.6425, L503.6550, L501.6710 #### [facility] [address] [place], [address] MCV (RBC) [Entitic vol] 91.1 fL Normal 81-99 [facility] Comment on above: Performed By: #### L 503.6030, L509.1000, L506.1001, L506.0200, L503.0106, L501.9520, L501.1400, L100.0100, L500.4050, L101.9900, L3100.6425, L503.6550, L501.6710 #### [facility] [address] [place], [address] Neutrophils/100 WBC (Bld) 53.3 % Normal 47-70 [facility] Comment on above: Performed By: #### L 503.6030, L509.1000, L506.1001, L506.0200, L503.0106, L501.9520, L501.1400, L100.0100, L500.4050, L101.9900, L3100.6425, L503.6550, L501.6710 #### [facility] [address] [place], [address] Platelets (Bld) [#/Vol] 254 10*3/uL Normal 150-450 [facility] Comment on above: Performed By: #### L 503.6030, L509.1000, L506.1001, L506.0200, L503.0106, L501.9520, L501.1400, L100.0100, L500.4050, L101.9900, L3100.6425, L503.6550, L501.6710 #### [facility] [address] [place], [address] RBC (Bld) [#/Vol] 4.37 10*6/uL Normal 4.2-5.4 [facility] Comment on above: Performed By: #### L 503.6030, L509.1000, L506.1001, L506.0200, L503.0106, L501.9520, L501.1400, L100.0100, L500.4050, L101.9900, L3100.6425, L503.6550, L501.6710 #### [facility] [address] [place], [place], [id number] RDW SD 44.0 fl High 35.1-43.9 [facility] Comment on above: Performed By: #### L 503.6030, L509.1000, L506.1001, L506.0200, L503.0106, L501.9520, L501.1400, L100.0100, L500.4050, L101.9900, L3100.6425, L503.6550, L501.6710 #### [facility] [address] [place], [address] WBC (Bld) [#/Vol] 5.4 10*3/uL Normal 4.4-11.0 [facility] Comment on above: Performed By: #### L 503.6030, L509.1000, L506.1001, L506.0200, L503.0106, L501.9520, L501.1400, L100.0100, L500.4050, L101.9900, L3100.6425, L503.6550, L501.6710 #### [facility] [address] [place], [address] CRPon 07-14-2025 C-REACTIVE PROT < 3.00 Normal 0.0-3.0 [facility] Comment on above: Performed By: #### L 503.6030, L509.1000, L506.1001, L506.0200, L503.0106, L501.9520, L501.1400, L100.0100, L500.4050, L101.9900, L3100.6425, L503.6550, L501.6710 ####[facility] [address] [place], [address] Comprehensive Metabolic [facility] 07-14-2025 Albumin [Mass/Vol] 4.3 g/dL Normal 3.4-4.8 [facility] Comment on above: Performed By: #### L 503.6030, L509.1000, L506.1001, L506.0200, L503.0106, L501.9520, L501.1400, L100.0100, L500.4050, L101.9900, L3100.6425, L503.6550, L501.6710 #### [facility] [address] [place], [address] Albumin/Globulin [Mass ratio] 1.7 {ratio} Normal 0.9-2.4 [facility] Comment on above: Performed By: #### L 503.6030, L509.1000, L506.1001, L506.0200, L503.0106, L501.9520, L501.1400, L100.0100, L500.4050, L101.9900, L3100.6425, L503.6550, L501.6710 #### [facility] [address] [place], [address] ALK PHOS 41 U/L Normal 35-104 [facility] Comment on above: Performed By: #### L 503.6030, L509.1000, L506.1001, L506.0200, L503.0106, L501.9520, L501.1400, L100.0100, L500.4050, L101.9900, L3100.6425, L503.6550, L501.6710 #### [facility] [address] [place], [address] ALT [Catalytic activity/Vol] 20 U/L Normal <=34 [facility] Comment on above: Performed By: #### L 503.6030, L509.1000, L506.1001, L506.0200, L503.0106, L501.9520, L501.1400, L100.0100, L500.4050, L101.9900, L3100.6425, L503.6550, L501.6710 #### [facility] [address] [place], [address] AST [Catalytic activity/Vol] 22 U/L Normal <=31 [facility] Comment on above: Performed By: #### L 503.6030, L509.1000, L506.1001, L506.0200, L503.0106, L501.9520, L501.1400, L100.0100, L500.4050, L101.9900, L3100.6425, L503.6550, L501.6710 #### [facility] [address] [place], [place], [id number] (270) Bilirubin [Mass/Vol] 0.45 mg/dL Normal 0.00-1.30 [facility] Comment on above: Performed By: #### L 503.6030, L509.1000, L506.1001, L506.0200, L503.0106, L501.9520, L501.1400, L100.0100, L500.4050, L101.9900, L3100.6425, L503.6550, L501.6710 #### [facility] [address] [place], [place], [id number] (182) BUN/CRE 21.7 RATIO High 10-20 [facility] Comment on above: Performed By: #### L 503.6030, L509.1000, L506.1001, L506.0200, L503.0106, L501.9520, L501.1400, L100.0100, L500.4050, L101.9900, L3100.6425, L503.6550, L501.6710 #### [facility] [address] [place], [address] Calcium [Mass/Vol] 9.1 mg/dL Normal 7.6-11.0 [facility] Comment on above: Performed By: #### L 503.6030, L509.1000, L506.1001, L506.0200, L503.0106, L501.9520, L501.1400, L100.0100, L500.4050, L101.9900, L3100.6425, L503.6550, L501.6710 #### [facility] [address] [place], [address] Chloride [Moles/Vol] 106 mmol/L Normal 98-108 [facility] Comment on above: Performed By: #### L 503.6030, L509.1000, L506.1001, L506.0200, L503.0106, L501.9520, L501.1400, L100.0100, L500.4050, L101.9900, L3100.6425, L503.6550, L501.6710 #### [facility] [address] [place], [address] CO2 [Moles/Vol] 24.5 mmol/L Normal 21.0-32.0 [facility] Comment on above: Performed By: #### L 503.6030, L509.1000, L506.1001, L506.0200, L503.0106, L501.9520, L501.1400, L100.0100, L500.4050, L101.9900, L3100.6425, L503.6550, L501.6710 #### [facility] [address] [place], [address] Creatinine [Mass/Vol] 0.65 mg/dL Low 0.70-1.20 [facility] Comment on above: Performed By: #### L 503.6030, L509.1000, L506.1001, L506.0200, L503.0106, L501.9520, L501.1400, L100.0100, L500.4050, L101.9900, L3100.6425, L503.6550, L501.6710 #### [facility] [address] [place], [place], [id number] (329) GAP 9 Normal 5-15 [facility] Comment on above: Performed By: #### L 503.6030, L509.1000, L506.1001, L506.0200, L503.0106, L501.9520, L501.1400, L100.0100, L500.4050, L101.9900, L3100.6425, L503.6550, L501.6710 #### [facility] [address] [place], [place], [id number] (490) GFR/1.73 sq M.predicted among non-blacks MDRD (S/P/Bld) [Vol rate/Area] 99 mL/min/{1.73_m2} Normal >60 [facility] Comment on above: Result Comment: mL/m in/1.73m2 CKD-EPI Creatinine Equation (2020) Performed By: #### L 503.6030, L509.1000, L506.1001, L506.0200, L503.0106, L501.9520, L501.1400, L100.0100, L500.4050, L101.9900, L3100.6425, L503.6550, L501.6710 #### [facility] [address] [place], [place], [id number] Globulin (S) [Mass/Vol] 2.5 g/dL Normal 2.2-4.2 [facility] Comment on above: Performed By: #### L 503.6030, L509.1000, L506.1001, L506.0200, L503.0106, L501.9520, L501.1400, L100.0100, L500.4050, L101.9900, L3100.6425, L503.6550, L501.6710 #### [facility] [address] [place], [place], [id number] (329) Glucose [Mass/Vol] 95 mg/dL Normal 70-99 [facility] Comment on above: Performed By: #### L 503.6030, L509.1000, L506.1001, L506.0200, L503.0106, L501.9520, L501.1400, L100.0100, L500.4050, L101.9900, L3100.6425, L503.6550, L501.6710 #### [facility] [address] [place], [address] Potassium [Moles/Vol] 4.2 mmol/L Normal 3.3-5.1 [facility] Comment on above: Performed By: #### L 503.6030, L509.1000, L506.1001, L506.0200, L503.0106, L501.9520, L501.1400, L100.0100, L500.4050, L101.9900, L3100.6425, L503.6550, L501.6710 #### [facility] [address] [place], [address] Sodium [Moles/Vol] 140 mmol/L Normal 133-145 [facility] Comment on above: Performed By: #### L 503.6030, L509.1000, L506.1001, L506.0200, L503.0106, L501.9520, L501.1400, L100.0100, L500.4050, L101.9900, L3100.6425, L503.6550, L501.6710 #### [facility] [address] [place], [address] T PROT 6.8 g/dL Normal 5.9-8.4 [facility] Comment on above: Performed By: #### L 503.6030, L509.1000, L506.1001, L506.0200, L503.0106, L501.9520, L501.1400, L100.0100, L500.4050, L101.9900, L3100.6425, L503.6550, L501.6710 #### [facility] [address] [place], [address] Urea nitrogen [Mass/Vol] 14 mg/dL Normal 4-19 [facility] Comment on above: Performed By: #### L 503.6030, L509.1000, L506.1001, L506.0200, L503.0106, L501.9520, L501.1400, L100.0100, L500.4050, L101.9900, L3100.6425, L503.6550, L501.6710 #### [facility] [address] [place], [place], [id number] Erythrocyte Sed Rateon 07-14 SED RATE 2 mm/hr Normal 0-30 [facility] Comment on above: Performed By: #### L 503.6030, L509.1000, L506.1001, L506.0200, L503.0106, L501.9520, L501.1400, L100.0100, L500.4050, L101.9900, L3100.6425, L503.6550, L501.6710 #### [facility] [address] [place], [place], [address] Ferritinon 07-14-2025 Ferritin [Mass/Vol] 30 ng/mL Normal 22-378 [facility] Comment on above: Performed By: #### L 503.6030, L509.1000, L506.1001, L506.0200, L503.0106, L501.9520, L501.1400, L100.0100, L500.4050, L101.9900, L3100.6425, L503.6550, L501.6710 ####[facility] [address] [place], [address] Folates,Serum (Folic Acid)on 07-14-2025 FOLATES,SERUM 17.90 ng/mL Normal 4.60-34.80 [facility] Comment on above: Order Comment: N Performed By: #### L 503.6030, L509.1000, L506.1001, L506.0200, L503.0106, L501.9520, L501.1400, L100.0100, L500.4050, L101.9900, L3100.6425, L503.6550, L501.6710 #### [facility] [address] [place], [address] Iron+Iron Binding Capacityon 07-14-2025 Iron [Mass/Vol] 172 ug/dL High 50-170 [facility] Comment on above: Performed By: #### L 503.6030, L509.1000, L506.1001, L506.0200, L503.0106, L501.9520, L501.1400, L100.0100, L500.4050, L101.9900, L3100.6425, L503.6550, L501.6710 ####[facility] [address] [place], [address] UIBC 143 ug/dL Low 228-428 [facility] Comment on above: Performed By: #### L 503.6030, L509.1000, L506.1001, L506.0200, L503.0106, L501.9520, L501.1400, L100.0100, L500.4050, L101.9900, L3100.6425, L503.6550, L501.6710 ####[facility] [address] [place], [address] PTHINon 07-14-2025 PTH 84 pg/mL High 11-61 [facility] Comment on above: Performed By: #### L 503.6030, L509.1000, L506.1001, L506.0200, L503.0106, L501.9520, L501.1400, L100.0100, L500.4050, L101.9900, L3100.6425, L503.6550, L501.6710 #### [facility] [address] [place], [address] Thyroid Stim Hormone (TSH)on 07-14-2025 TSH 1.110 uIU/mL Normal 0.300-4.200 [facility] Comment on above: Performed By: #### L 503.6030, L509.1000, L506.1001, L506.0200, L503.0106, L501.9520, L501.1400, L100.0100, L500.4050, L101.9900, L3100.6425, L503.6550, L501.6710 ####[facility] [address] [place], [place], [id number] Uric Acidon 07-14-2025 URIC 3.1 mg/dL Normal 2.6-6.0 [facility] Comment on above: Result Comment: The drugs N-Acetylcysteine and Metamizole may falsely depress this assay. Performed By: #### L 503.6030, L509.1000, L506.1001, L506.0200, L503.0106, L501.9520, L501.1400, L100.0100, L500.4050, L101.9900, L3100.6425, L503.6550, L501.6710 ####[facility] [address] [place], [place], [address] Vitamin B12on 07-14-2025 Cobalamin (Vitamin B12) [Mass/Vol] 1025 pg/mL High 180-914 [facility] Comment on above: Performed By: #### L 503.6030, L509.1000, L506.1001, L506.0200, L503.0106, L501.9520, L501.1400, L100.0100, L500.4050, L101.9900, L3100.6425, L503.6550, L501.6710 ####[facility] [address] [place] [id number] Vitamin D,25 Hydroxyon 07-14 Vitamin D 25-OH 43.6 ng/mL Normal 30-100 [facility] Comment on above: Result Comment: Nichol min D Status Deficiency: <20 ng/mL (50nmol/L) Insufficiency: 20-30 ng/mL (50-75 nmol/L) Sufficiency: 30-100 ng/mL (75-250 nmol/L) Toxicity: >100 ng/mL (>250 nmol/L) Performed By: #### L 503.6030, L509.1000, L506.1001, L506.0200, L503.0106, L501.9520, L501.1400, L100.0100, L500.4050, L101.9900, L3100.6425, L503.6550, L501.6710 ####[facility] [address] [place], [place], [address] [employer] Cytology Reporton 2024 [facility] [employer] [facility] Cytology Report . Pathology Reports Accession: Collected Date/Time: Received Date/Time: Pathologist: [id number] 07/07/2025 10:02 EDT 07/07/2025 18:00 EDT [facility] [employer] [facility] Report SPECIMEN: Specimen Description: Liquid Prep w/ HPV Specimen: Cervical/Endocervical Screening or Diagnostic: Screening RELEVANT HISTORY: LMP: postmenopausal SPECIMEN ADEQUACY: SATISFACTORY FOR EVALUATION Endocervical/Transformat ional zone component present INTERPRETATION/RESULTS: NEGATIVE FOR INTRAEPITHELIAL LESION OR MALIGNANCY HIGH RISK HPV TESTING: HPV Screen Only, ELZA Probe Negative HPV Screen Only, ELZA Probe Interp Data: Molecular methodology performed on the [employer] System. The APTIMA HPV Screening Assay is a nucleic acid amplification test which detects fourteen high-risk HPV types (16,18,31,33,35,39,45,51 ,52,56,58,59,66 and 68). Detection of high-risk HPV (types 16,18 and 45) mRNA is dependent on the number of copies present in the specimen which may be affected by collection methods, patient factors, stage of infection and the presence of interfering substances. This assay is designed to enhance existing methods for the detection of cervical disease and should be used in conjunction with clinical information from other diagnostic and screening tests. This assay is not intended for use as a screening device for women under age 30 with normal cervical history or as a substitute for regular cervical cytology screening. If the APTIMA screening assay is positive, the HPV 16 18/45 genotype assay is performed as a follow-up test and should be interpreted in conjunction with cervical cytology test results, according to current practice guidelines. As of: 07/10/25 15:18 EDT COMMENT: This Pap Test was successfully processed and evaluated with the assistance of the [employer] Test Imaging System. Verified by Pathology report verified by [facility] Screened by: BRIDGETT Electronically signed by Nesha OCAMPO (ASCP) Sign-Out Date: 07/10/2025 15:18 Performing Lab: [facility], [address] [place] [address] Pathology Dept Pathology Reports Accession: Collected Date/Time: Received Date/Time: Pathologist: [id number] 07/07/2025 10:02 EDT 07/07/2025 18:00 EDT Disclaimer The Pap test is a screening test for cervical cancer. As evidenced by published data, it is subject to both inherent false negative and false positive results. Your patient's results should be interpreted in context with pertinent clinical history including gynecological examination. Normal [facility] HPVSCon 07-10-2025 HPV Source Cervix Normal [facility] Comment on above: Order Comment: Order placed by AP_HPV_ORDER rule from [id number] Performed By: #### H PVS #### [place] [address] HPV Screen Only, ELZA Probe Negative Normal Negative [facility] Comment on above: Order Comment: Order placed by AP_HPV_ORDER rule from [id number] Result Comment: f - Calibration failed. p - Assay processing error. f - Calibration failed. p - Assay processing error. f - Calibration failed. p - Assay processing error. Molecular methodology performed on the [employer] System. The APTIMA HPV Screening Assay is a nucleic acid amplification test which detects fourteen high-risk HPV types (16,18,31,33,35,39,45,51,52,56,58,59,66 and 68). Detection of high-risk HPV (types 16,18 and 45) mRNA is dependent on the number of copies present in the specimen which may be affected by collection methods, patient factors, stage of infection and the presence of interfering substances. This assay is designed to enhance existing methods for the detection of cervical disease and should be used in conjunction with clinical information from other diagnostic and screening tests. This assay is not intended for use as a screening device for women under age 30 with normal cervical history or as a substitute for regular cervical cytology screening. If the APTIMA screening assay is positive, the HPV 16 18/45 genotype assay is performed as a follow-up test and should be interpreted in conjunction with cervical cytology test results, according to current practice guidelines. Performed By: #### H PVS #### [place] [address] [facility] [employer] Cytology Reporton 2024 [facility] [employer] [facility] Cytology Report Event Display: GY Specimen Specimen Description: Liquid Prep w/ HPV Specimen: Cervical/Endocervical Screening or Diagnostic: Screening TERRENCE CarbajalASCP) Nesha:VERIFY; Authored Date: [facility] Work Phone: [facility] [employer] Cytology Report Event Display: GY Signature Pathology report verified by [facility] Screened by: BRIDGETT Electronically signed by Nesha OCAMPO (ASCP) Sign-Out Date: 07/10/2025 15:18 Performing Lab: [facility], [address] [place] [address] Pathology Dept TERRENCE CarbajalASCP) Nesha:VERIFY; Authored Date: [facility] Work Phone: [facility] [employer] Cytology Report Event Display: GY Disclaimer The Pap test is a screening test for cervical cancer. As evidenced by published data, it is subject to both inherent false negative and false positive results. Your patient's results should be interpreted in context with pertinent clinical history including gynecological examination. TERRENCE Carbajal (ASCP) Nesha:VERIFY; Authored Date: [facility] Work Phone: [facility] [employer] [facility] Cytology Report Event Display: GY Hi gh Risk HPV Testing HPV Screen Only, ELZA Probe Negative HPV Screen Only, ELZA Probe Interp Data: Molecular methodology performed on the [employer] System. The APTIMA HPV Screening Assay is a nucleic acid amplification test which detects fourteen high-risk HPV types (16,18,31,33,35,39,45,51 ,52,56,58,59,66 and 68). Detection of high-risk HPV (types 16,18 and 45) mRNA is dependent on the number of copies present in the specimen which may be affected by collection methods, patient factors, stage of infection and the presence of interfering substances. This assay is designed to enhance existing methods for the detection of cervical disease and should be used in conjunction with clinical information from other diagnostic and screening tests. This assay is not intended for use as a screening device for women under age 30 with normal cervical history or as a substitute for regular cervical cytology screening. If the APTIMA screening assay is positive, the HPV 16 18/45 genotype assay is performed as a follow-up test and should be interpreted in conjunction with cervical cytology test results, according to current practice guidelines. As of: 07/10/25 15:18 EDT TERRENCE Carbajal (ASCP) Nesha:VERIFY; Authored Date: [facility] Work Phone: [facility] [employer] [facility] Cytology Report Event Display: GY Comment This Pap Test was successfully processed and evaluated with the assistance of the [employer] Test Imaging System. TERRENCE Carbajal (ASCP) Nesha:VERIFY; Authored Date: [facility] Work Phone: [facility] [employer] [facility] Cytology Report Event Display: GY Cl in Info LMP: postmenopausal TERRENCE Carbajal (ASCP) Nesha:VERIFY; Authored Date: [facility] Work Phone: [facility] [employer] [facility] Cytology Report Event Display: GY In terp Dx NEGATIVE FOR INTRAEPITHELIAL LESION OR MALIGNANCY TERRENCE Carbajal (ASCP) Nesha:VERIFY; Authored Date: [facility] Work Phone: LABORATORYOrdered By: SYSTEM SYSTEM on 07-07-2025 HPV E6+E7 mRNA ELZA+probe Ql (Cvx) Negative 1, 2 (07/07/25 10:02 AM) Normal Negative [facility] Comment on above: Result Comment: f - Calibration failed. p - Assay processing error. f - Calibration failed. p - Assay processing error. f - Calibration failed. p - Assay processing error. Interpretive Data: Alia block methodology performed on the [employer] System. The APTIMA HPV Screening Assay is a nucleic acid amplification test which detects fourteen high-risk HPV types (16,18,31,33,35,39,45,51,52,56,58,59,66 and 68). Detection of high-risk HPV (types 16,18 and 45) mRNA is dependent on the number of copies present in the specimen which may be affected by collection methods, patient factors, stage of infection and the presence of interfering substances. This assay is designed to enhance existing methods for the detection of cervical disease and should be used in conjunction with clinical information from other diagnostic and screening tests. This assay is not intended for use as a screening device for women under age 30 with normal cervical history or as a substitute for regular cervical cytology screening. If the APTIMA screening assay is positive, the HPV 16 18/45 genotype assay is performed as a follow-up test and should be interpreted in conjunction with cervical cytology test results, according to current practice guidelines. HPV Source Cervix *NA* (07/07/25 10:02 AM) Invalid Interpretation Code Auto Viro/Sero SS Vitamin D 1,25-Dihydroxyon 0 04-03-2025 VIT D 1,25 DIHY 91.3 pg/mL Abnormal 24.8-81.5 [facility] Comment on above: Result Comment: Perf ormed at: - [facility] [id number] Aircraft Assembler: Erasmo Cancino MD, Phone: [phone] Performed By: #### L 506.1004, L119.9996, B8087.3866, L501.4024 ####[facility] [address] [place], [place], [address] CRPon 03-31-2025 C-REACTIVE PROT < 3.00 Normal 0.0-3.0 [facility] Comment on above: Performed By: #### L 506.1001, L101.9900, L3300.0960, L501.6710 ####[facility] [address] [place], [place], [address] Erythrocyte Sed Rateon 03-31 SED RATE 2 mm/hr Normal 0-30 [facility] Comment on above: Performed By: #### L 506.1001, L101.9900, L3300.0960, L501.6710 ####[facility] [address] [place], [place], [address] Erythrocyte sedimentation ra teOrdered By: Sarkis Hope on 03-31-2025 ESR (Bld) [Velocity] 2 mm/h 0-30 [facility] Gastroenterology Visit Repor ton 03-31-2025 Gastroenterology Visit Report [facility] [address] [place] [address] OFFICE VISIT Date of Service: 03/31/25 MR#: [id number] Acct: [id number] Name: NIK LAY Rep #: [id number] : 1965 Provider: Sarkis Hope DO Age/Sex: 60/F Location: [facility] Status: Signed Intake Vital Signs 09/21/23 10:46 Height 5 ft 2 in Intake Visit Reasons: 6 M FU Allergies amoxicillin Allergy (Verified 09/20/23 08:11) Rash cashew nut (cashews) Allergy (Verified 09/20/23 08:11) Itching Penicillins (cillins) Allergy (Verified 09/20/23 08:11) Rash Medications ???Medication ???Instructions ???Recorded ???Confirmed ???Type cholecalciferol (vitamin D3) 25 25 mcg PO DAILY 06/16/22 03/31/25 History mcg (1,000 unit) capsule (Vitamin D3) mesalamine 1.2 gram tablet,delayed 2.4 g (2 x 1.2 gram) PO BID 8 03/31/25 Rx release weeks #224 tabs PFSH Medical History (Updated 10/16/23 @ 08:01 by Tatiana Torres) Post-menopausal Alcohol use High cholesterol Hx LEEP (loop electrosurgical excision procedure), cervix, Wears glasses History of steroid therapy Dietary restriction Ulcerative colitis History of irregular heartbeat Anemia Injury of head and neck Hx of ulcerative colitis Non-smoker Spider veins of both lower extremities Family history of skin cancer Actinic keratosis Heart murmur IBS (irritable bowel syndrome) UTI (urinary tract infection) Anemia Surgical History (Updated 09/14/23 @ 13:37 by Evon Lilly) Hx of colonoscopy Hx of oral surgery Family History (Updated 08/22/23 @ 10:38 by Luz Avila) Mother Colon cancer Other Anemia Family history of skin cancer Social History Smoking Status: Never smoker alcohol intake: never substance use type: does not use additional social history: Does Take Aspirin Does Not Take Ibuprofen HPI HPI Details: NIK LAY, is a 60 F who presents to the office today for follow up. *BGI established through screening colonoscopy services. Colonoscopy .01.08 polypoid non-obstructing medium sized mass of rectum, inflammatory polyp, saline lift with complete resection, tattooed; RS and rectum with congestion, erosions, friability, aphthou s ulcerations, moderate chronic/active proctitis with inflammation, granulation, inflammatory cell infiltration into lamina propria, cryptitis, crypt abscesses and glandular distortion without dysplasia. Biochemical ESR, CRP, CEA, ANCA, MINDA comp, titers, TB, IBD without pertinent abnormality. OV 1.30.24 previously diagnosed with UC. Most recent flare of symptoms this last summer with increased stooling; PCP started mesalamine enemas and this was helpful. BM typically 1-2/day, though currently having stool when she passes gas. OV 7.10.24 pt reports that she is feeling well overall without GI symptoms of concern at this time. pt reports 1-2 bm per day; denies blood in the stool. Continues with Mesalamine. OV 1.7.25 pt reports that she is feeling well overall and denies GI symptoms of concern at this time. Pt reports that she is taking Mesalamine as needed. Reports an increase in fatigue. OV 7.15.25 pt reports that she is doing well overall and denies GI symptoms of concern at this time. Pt continues with mesalamine. ESR / CRP Calp / Lact Serum / AB 7.10.24 1 / <2.9 <5 / - -- / -- 1.9.25 1 / <2.9 -- / -- -- / -- Exam Const General: cooperative, healthy appearing and comfortable Nutritional Appearance: well nourished Orientation: alert and oriented x3 GI Inspection: normal to inspection Assessment and Plan Assessment and Plan (1) Ulcerative colitis: Status: Chronic Plan: 58-year-old with a long standing history colitis mostly involving rectum and rectosigmoid junction controlled with mesalamine therapy. She has been treated with steroids and balsalazide. She underwent colonoscopy and was discovered to have inflammation of the internal 30 cm colonoscopy. She had inflammatory pseudopolyps along with inflammation that was continuously mucosal from the colon which to 30 cm. There is no dysplasia on biopsies of the inflamed area. She has been maintaining normal weight. She is not smoke cigarettes. She has never had abnormal biopsies in the past. She is not or has ever had any extra intestinal manifestations of ulcerative colitis. She is only taken the mesalamine as needed. She thinks she had a flare a couple weeks ago and she did take mesalamine once a day and she did mesalamine suspension. She is not having any extraintestinal manifestations of ulcerative colitis at this time such as no rashes, vision changes, muscle aches or fatigue. She thinks that a lot of her symptoms come to the stress of taking care of her mother who recently was diag (more content not included)... Normal [facility] Serum or plasma C reactive p rotein measurement (mass/volume)Ordered By: Sarkis Hope on 03-31-2025 CRP [Mass/Vol] mg/L 0.0-3.0 [facility] Serum or plasma calcitriol m easurement (mass/volume)Ordered By: Sarkis Hope on 03-31-2025 1,25-dihydroxyvitamin D3 [Mass/Vol] 91.3 pg/mL High 24.8-81.5 [facility] Comment on above: Performed at: [address] [id number] Director: Erasmo Cancino MD, Phone: [phone] Vitamin D,25 Hydroxyon 03-31 Vitamin D 25-OH 49.8 ng/mL Normal 30-100 [facility] Comment on above: Result Comment: Nichol min D Status Deficiency: <20 ng/mL (50nmol/L) Insufficiency: 20-30 ng/mL (50-75 nmol/L) Sufficiency: 30-100 ng/mL (75-250 nmol/L) Toxicity: >100 ng/mL (>250 nmol/L) Performed By: #### L 506.1001, L101.9900, L3815.2560, L512.2423 ####[facility] [address] [place], [address] Aldolaseon 09-26-2024 ALDOLASE 3.5 U/L Normal 3.3-10.3 [facility] Comment on above: Result Comment: Perf ormed at: [facility] [address] [id number] Aircraft Assembler: Chava Ta PhD, Phone: [phone] Performed By: #### L 501.3620, L501.6710, L101.9900, L3100.7000 ####[facility] [address] [place], [address] CPK Total, Creatine Kinaseon 09-25-2024 CPK TOTAL 85 U/L Normal 26-192 [facility] Comment on above: Performed By: #### L 501.3620, L501.6710, L101.9900, L3100.7000 ####[facility] [address] [place], [address] CRPon 09-25-2024 C-REACTIVE PROT < 2.90 Normal 0.0-3.0 [facility] Comment on above: Result Comment: C-Re active Protein (CRP) provides useful information for the diagnosis, therapy and monitoring of inflammatory processes and associated diseases. For the evaluation of Relative Risk for Cardiovascular Disease, a High Sensitivity CRP (HSCRP) should be ordered. Performed By: #### L 501.3620, L501.6710, L101.9900, L3100.7000 ####[facility] [address] [place], [address] Erythrocyte Sed Rateon 09-25 SED RATE 1 mm/hr Normal 0-30 [facility] Comment on above: Performed By: #### L 501.3620, L501.6710, L101.9900, L3100.7000 ####[facility] [address] [place], [address] Gastroenterology Visit Repor ton 09-23-2024 Gastroenterology Visit Report [facility] Gastroenterology [address] [place] [address] OFFICE VISIT Date of Service: 09/23/24 MR#: [id number] Acct: [id number] Name: NIK ALY Rep #: [id number] : 1965 Provider: Sarkis Hope DO Age/Sex: 59/F Location: [facility] Status: Signed Intake Vital Signs 09/21/23 10:46 Height 5 ft 2 in Intake Visit Reasons: 6 M FU Allergies amoxicillin Allergy (Verified 09/20/23 08:11) Rash cashew nut (cashews) Allergy (Verified 09/20/23 08:11) Itching Penicillins (cillins) Allergy (Verified 09/20/23 08:11) Rash Medications ???Medication ???Instructions ???Recorded ???Confirmed ???Type cholecalciferol (vitamin D3) 25 25 mcg PO DAILY 06/16/22 09/23/24 History mcg (1,000 unit) capsule (Vitamin D3) mesalamine 1.2 gram tablet,delayed 2.4 g (2 x 1.2 gram) PO BID 8 07/30/24 09/23/24 Rx release weeks #224 tabs Lactobacillus acidophilus 500 500 mmu cells PO TID 6 months #540 09/15/24 09/23/24 Rx million cell capsule caps [facility] Medical History (Updated 10/16/23 @ 08:01 by Tatiana Torres) Post-menopausal Alcohol use High cholesterol Hx LEEP (loop electrosurgical excision procedure), cervix, Wears glasses History of steroid therapy Dietary restriction Ulcerative colitis History of irregular heartbeat Anemia Injury of head and neck Hx of ulcerative colitis Non-smoker Spider veins of both lower extremities Family history of skin cancer Actinic keratosis Heart murmur IBS (irritable bowel syndrome) UTI (urinary tract infection) Anemia Surgical History (Updated 09/14/23 @ 13:37 by Evon Lilly) Hx of colonoscopy Hx of oral surgery Family History (Updated 08/22/23 @ 10:38 by Luz Avila) Mother Colon cancer Other Anemia Family history of skin cancer Social History Smoking Status: Never smoker alcohol intake: never substance use type: does not use additional social history: Does Take Aspirin Does Not Take Ibuprofen HPI HPI Details: NIK LAY, is a 59 F who presents to the office today for follow up. *BGI established through screening colonoscopy services. Colonoscopy .01.08 polypoid non-obstructing medium sized mass of rectum, inflammatory polyp, saline lift with complete resection, tattooed; RS and rectum with congestion, erosions, friability, aphthous ulcerations, moderate chronic/active proctitis with inflammation, granulation, inflammatory cell infiltration into lamina propria, cryptitis, crypt abscesses and glandular distortion without dysplasia. Biochemical ESR, CRP, CEA, ANCA, MINDA comp, titers, TB, IBD without pertinent abnormality. OV 10.16. previously diagnosed with UC. Most recent flare of symptoms this last summer with increased stooling; PCP started mesalamine enemas and this was helpful. BM typically 1-2/day, though currently having stool when she passes gas. OV 7..24 pt reports that she is feeling well overall without GI symptoms of concern at this time. pt reports 1-2 bm per day; denies blood in the stool. Continues with Mesalamine. OV 1..25 pt reports that she is feeling well overall and denies GI symptoms of concern at this time. Pt reports that she is taking Mesalamine as needed. Reports an increase in fatigue. ESR / CRP Calp / Lact Serum / AB .07.10 1 / <2.9 <5 / - -- / -- ROS Const Constitutional: Positive for fatigue; No fever(s) or weight change ENT ENT: No difficulty swallowing Gastro GI: No abdominal pain, belching, bloating, change in bowel habits, change in stool character, coffee ground emesis, constipation, cramping, diarrhea, heartburn, difficulty swallowing, feeling full early, excessive flatus, incontinent of stools, Vomiting blood/hematemesis, Blood in stool, loose stools, Black,tarry stools, nausea/dyspepsia, pain with swallowing, vomiting or other Musc Musculoskeletal: No joint pain Skin Skin: No yellowing of the eye or itchy eyes Psych Psychiatric: No anxiety and No depression Endo Endocrine: Positive for fatigue; No weight change Aller/Imm Allergy/Immunologic: No itchy eyes Alex/Lymp Hematologic/Lymphatic: No easy bleeding or easy bruising Exam Const General: cooperative, healthy appearing and comfortable Nutritional Appearance: well nourished Orientation: alert and oriented x3 GI Inspection: normal to inspection Assessment and Plan Assessment and Plan (1) Ulcerative colitis: Status: Chronic Plan: 58-year-old with a long standing history colitis mostly involving rectum and rectosigmoid junction controlled with mesalamine therapy. She has been treated with steroids and balsalazide. She underwent colonoscopy and was discovered to have inflammation of the internal 30 cm colonoscopy. She had inflammatory pseudop (more content not included)... [facility] Dexa Bone Density Studyon Dexa Bone Density Study [facility] Imaging Services [address] [place] [id number] Dexa Bone Density Study MR#: [id number] Acct: [id number] Name: NIK LAY Rep #: [id number] : 1965 F 59 From: Shiva vazquez MD PCP: Dr. Sukh Samson MD Status: [facility] Study: Dexa Bone Density Study Date of Exam: 08/22/24 Exam# [id number] Ordering Dr: Sukh Samson MD [id number] STUDY: DUAL ENERGY X-RAY ABSORPTIOMETRY / DXA REASON FOR EXAM: Female, 59 years old. V76.12ScreeningBONE DENSITY REASON FOR EXAM TECHNIQUE: Bone Mineral Density (BMD) measurements of lumbar spine and right hip were obtained. COMPARISON: None. FINDINGS: Lumbar Spine (L1-L4): g/cm2 (0.773) / T-score (-2.5) / Z-score (-1.0) Findings are suggestive of osteoporosis with a high fracture risk. Right Femur Total: g/cm2 (0.745) / T-score (-1.6) / Z-score (-0.6) Right Femoral Neck: g/cm2 (0.544) / T-score (-2.7) / Z-score (ice 1.4) BD/Dexa Bone Density Study IMPRESSION: The patient is considered osteoporotic as outlined below according to World Higinio Organization (WHO) criteria with a high fracture risk. Reference Information: The T-score is the number of standard deviations above or below the standard which is normal for young adults at their peak bone mineral density. The World Health Organization (WHO) interprets the T-scores as follows: Above -1 Normal bone density Between -1 and -2.5 Osteopenia Equal to / or below -2.5 Osteoporosis As a practical clinical guideline, osteopenia may be graded as follows: Mild -1 through -1.5 Moderate -1.6 through -2.0 Severe -2.1 through -2.4 The Z-score is the number of standard deviations above or below age-matched controls. A Z-score of less than -1.5 would be considered abnormal. References: 1. NIH Osteoporosis and Related Bone Diseases www osteo.org 2. International Society for Clinical Densitometry www iscd.org 3. National Osteoporosis Foundation www nof.org Electronically Signed: Shiva Irving MD at 12:00 EST , CC: Dr. Sukh Samson MD Veneer Jointer: Signed [facility] SCRN MAMM (CAD)W/CONRADO BILATo n 08-22-2024 SCRN MAMM (CAD)W/CONRADO BILAT [facility] Imaging Services [address] [place] [address] SCRN MAMM (CAD)W/CONRADO BILAT MR#: [id number] Acct: [id number] Name: NIK LAY Rep #: [id number] : 1965 F 59 From: Shiva vazquez MD PCP: Dr. Sukh Samson MD Status: REG [facility] Study: SCRN MAMM (CAD)W/CONRADO BILAT Date of Exam: 03/10 Exam# [id number] Ordering Dr: Sukh Samson MD [id number] MAMMOGRAPHY - BILATERAL SCREENING REASON FOR EXAM: Female, 59 years old. Routine annual screening examination. PERTINENT HISTORY: Non-contributory. TECHNIQUE: Digital bilateral breast conrado (3D mammographic acquisition) in the CC and MLO projections. 2-D mediolateral oblique (MLO) and craniocaudad (CC) views of both breasts were obtained. CAD: Full Field Digital Mammography with Computer Added Detection was performed. COMPARISON: Comparison is made with prior study August 06, 2023 and August 23, 2017. FINDINGS: Breast Composition: The breasts are heterogeneously dense, which may obscure small masses. There are no dominant masses or suspicious calcifications. Small bilateral axillary lymph nodes. No other significant abnormalities are identified. There has been no significant change since the prior study. BI/SCRN MAMM (CAD)W/CONRADO BILAT IMPRESSION: Stable bilateral screening mammogram. Yearly follow-up mammogram recommended. (A) ASSESSMENT CATEGORY: BIRADS Category 2: Benign. A letter regarding these results will be sent to the patient by the facility within 30 days. Approximately 10% of breast cancers are not detected by mammography. A normal mammogram should not delay biopsy of a clinically suspicious abnormality. [id number] Electronically Signed: Shiva Irving MD at 12:18 EST , CC: Dr. Sukh Samson MD Veneer Jointer: Signed [facility] NMR Lipoprofileon 07-28-2024 Cholesterol [Mass/Vol] 244 mg/dL High 100-199 [facility] Comment on above: Order Comment: Test( s) 744533-SGK-D; 722663-ZTA-F; 758370-Filftzoeksapy; 444650-Dgndrlgfqzk, Total; 791196-RHG-K (Total); 364201- Small LDL-P; 237688-IZC Size; 677547-OE-WL Score was developed and its performance characteristics determined by [employer]. It has not been cleared or approved by the Food and Drug Administration. Performed By: #### L 3500.0000 #### [facility] [address] [place], [place], [id number] Cholesterol in HDL [Mass/Vol] 88 mg/dL Normal >39 [facility] Comment on above: Order Comment: Test( s) 587464-PER-O; 743519-WIF-U; 305429-Cmcbjzbpoeqvy; 455657-Tbftrsfkorw, Total; 923921-IEE-U (Total); 988868- Small LDL-P; 912991-BIR Size; 123062-YN-CF Score was developed and its performance characteristics determined by [employer]. It has not been cleared or approved by the Food and Drug Administration. Performed By: #### L 3500.0000 #### [facility] [address] [place], [place], [id number] Cholesterol in LDL [Mass/Vol] 145 mg/dL Abnormal 0-99 [facility] Comment on above: Order Comment: Test( s) 397521-CLG-D; 179042-PXL-B; 364644-Oliigvgrfaaht; 343731-Mjegiysgrgs, Total; 769438-WSA-Y (Total); 153971- Small LDL-P; 563346-HSW Size; 212752-NZ-GA Score was developed and its performance characteristics determined by [facility]. It has not been cleared or approved by the Food and Drug Administration. Result Comment: Opti mal < 100 Above optimal 100 - 129 Borderline 130 - 159 High 160 - 189 Very high > 189 Performed By: #### L 3500.0000 #### [facility] [address] [place], [address] HDL-P TOTAL 35.4 umol/L Normal >=30.5 [facility] Comment on above: Order Comment: Test( s) 978309-VLG-J; 338921-GFW-N; 680316-Gcupgyurltkmf; 961996-Rdefgygmxjv, Total; 876609-PWJ-H (Total); 546681- Small LDL-P; 058114-EAJ Size; 846531-YC-OK Score was developed and its performance characteristics determined by [facility]. It has not been cleared or approved by the Food and Drug Administration. Performed By: #### L 3500.0000 #### [facility] [address] [place], [address] INS. RES. SCORE <25 Normal <=45 [facility] Comment on above: Order Comment: Test( s) 647189-ZTY-J; 967786-FPA-S; 719568-Czwpbjhsxzivy; 616733-Hihhyukkash, Total; 950814-SWA-R (Total); 790470- Small LDL-P; 931905-YWM Size; 004138-MM-UU Score was developed and its performance characteristics determined by [facility]. It has not been cleared or approved by the Food and Drug Administration. Result Comment: INSU PHYLLIS RESISTANCE MARKER <--Insulin Sensitive Insulin Resistant--> Percentile in Reference Population Insulin Resistance Score LP-IR Score Low 25th 50th 75th High <27 27 45 63 >63 LP-IR Score is inaccurate if patient is non-fasting. The LP-IR score is a laboratory developed index that has been associated with insulin resistance and diabetes risk and should be used as one component of a physician's clinical assessment. Performed at: [facility] [id number] Aircraft Assembler: Erasmo Cancino MD, Phone: [phone] Performed By: #### L 3500.0000 #### [facility] [address] [place], [place], [id number] LDL SIZE 22.2 nm Normal >20.5 [facility] Comment on above: Order Comment: Test( s) 566995-CEM-K; 445625-OLT-B; 961711-Wtkntqlnwjioe; 585587-Iubypwsdlrd, Total; 055550-MIJ-R (Total); 111549- Small LDL-P; 251469-ORH Size; 317224-XR-HU Score was developed and its performance characteristics determined by [employer]. It has not been cleared or approved by the Food and Drug Administration. Result Comment: INTERPRETATIVE INFORMATION PARTICLE CONCENTRATION AND SIZE <--Lower CVD Risk Higher CVD Risk--> LDL AND HDL PARTICLES Percentile in Reference Population HDL-P (total) High 75th 50th 25th Low >34.9 34.9 30.5 26.7 <26.7 Small LDL-P Low 25th 50th 75th High <117 117 527 839 >839 LDL Size <-Large (Pattern A)-> <-Small (Pattern B)-> 23.0 20.6 20.5 19.0 Small LDL-P and LDL Size are associated with CVD risk, but not after LDL-P is taken into account. Performed By: #### L 3500.0000 #### [facility] [address] [place], [place], [id number] LDL-P 1160 nmol/L Abnormal <1000 [facility] Comment on above: Order Comment: Test( s) 335474-DEX-T; 074008-MVJ-L; 692916-Jziukhgsmrjxf; 795388-Ylrhfswknzu, Total; 685063-FJW-R (Total); 303212- Small LDL-P; 486016-MZV Size; 558683-MD-DY Score was developed and its performance characteristics determined by [employer]. It has not been cleared or approved by the Food and Drug Administration. Result Comment: Low < 1000 Moderate 1000 - 1299 Borderline-High 1300 - 1599 High 1600 - 2000 Very High > 2000 Performed By: #### L 3500.0000 #### [facility] [address] [place], [address] SMALL LDL-P <90 Normal <=527 [facility] Comment on above: Order Comment: Test( s) 837827-WUB-D; 962539-IIG-Y; 622050-Emjnwnnpgjbkv; 063570-Iapecnbbyjo, Total; 185001-NUO-I (Total); 328044- Small LDL-P; 407988-BUK Size; 439669-UX-VW Score was developed and its performance characteristics determined by [employer]. It has not been cleared or approved by the Food and Drug Administration. Performed By: #### L 3500.0000 #### [facility] [address] [place], [address] Triglyceride [Mass/Vol] 64 mg/dL Normal 0-149 [facility] Comment on above: Order Comment: Test( s) 249164-JQE-F; 426741-MRN-V; 181761-Vlcvzsskfoubt; 288646-Dadjfskyqor, Total; 473077-OKC-M (Total); 107441- Small LDL-P; 321405-ZQK Size; 572539-CS-AW Score was developed and its performance characteristics determined by [facility]. It has not been cleared or approved by the Food and Drug Administration. Performed By: #### L 3500.0000 #### [facility] [address] [place], [address] No Panel InformationOrdered By: Sarkis Hope on 09-21-2023 Bordetella pertussis IgG Antibody 1.43 index 0.00-0.94 [facility] Comment on above: Negative <0.95 Equiv ocal 0.95 - 1.04 Positive >1.04Performed at: [facility] [address] [id number] Director: Chava Ta PhD, Phone: [phone] at: [facility] [id number] Director: Erasmo Cancino MD, Phone: [phone] Hepatitis A IgM Antibody Negative Negative [facility] Hepatitis B Core IgM Antibody Negative Negative [facility] Hepatitis C Antibody (EIA) Non-Reactive Non Reactive [facility] Hepatitis C Antibody Comment Comment . [facility] Comment on above: Not infected with HC V unless early or acute infection issuspected (which may be delayed in an immunocompromisedindividual), or other evidence exists to indicate HCVinfection. Rubella IgG Antibody Reactive Nonreactive [facility] Comment on above: Antibody Results Int erpretation of Immune Status Non Reactive Presumed Non-Immune Equivocal Equivocal Reactive Presumed Immune Qualitative QuantiFERON-TB g old in tube testOrdered By: Sarkis Hope on 09-21-2023 M. tuberculosis tuberculin stim IFN-g Ql (Bld) 0.04 IU/mL . [facility] Serum Varicella zoster virus IgG antibody assay by immunoassay (units/volume)Ordered By: Sarkis Hope on 09-21-2023 VZV IgG IA Qn (S) > 4000 index Immune >165 [facility] Comment on above: Negative <135 Equivo manuel 135 - 165 Positive >165A positive result generally indicates exposure to thepathogen or administration of specific immunoglobulins,but it is not indication of active infection or stageof disease. Serum mumps virus IgM antibo dy assay (units/volume)Ordered By: Sarkis Hope on 09-21-2023 MuV IgM Qn (S) 1.20 AU 0.00-0.79 [facility] Comment on above: Negative < 0.80 Bord hola 0.80 - 1.20 Positive > 1.20Note: The presence of IgM specific antibody should beinterpreted in conjunction with the patient's clinicalhistory and exposure risk when an acute infection issuspected. Serum or plasma hepatitis B virus surface antigen detection by immunoassayOrdered By: Sarkis Hope on 09-21-2023 HBV surface Ag IA Ql Negative Negative [facility] Thin prep Papanicolaou smear with manual screeningOrdered By: Sarkis Hope on 09-21-2023 Thin prep Papanicolaou smear with manual screening Comment . [facility] Comment on above: QuantiFERON-TB Gold Plus is a qualitative indirect test forM tuberculosis infection (including disease) and isintended for use in conjunction with risk assessment,radiography, and other medical and diagnostic evaluations.The QuantiFERON-TB Gold Plus result is determined bysubtracting the Nil value from either TB antigen (Ag)value. The Mitogen tube serves as a control for the test. Thin prep Papanicolaou smear with manual screening 0.05 IU/mL . [facility] Thin prep Papanicolaou smear with manual screening > 10.00 IU/mL . [facility] Thin prep Papanicolaou smear with manual screening Negative Negative [facility] Comment on above: No response to M tub erculosis antigens detected.Infection with M tuberculosis is unlikely, but high riskindividuals should be considered for additional testing(ATS/IDSA/CDC Clinical Practice Guidelines, 2017). Thereference range is an Antigen minus Nil result of <0.35IU/mL.The specimen received for QuantiFERON testing was incubatedby the ordering institution. Specific procedures outlinedin our Directory of Services and in the package insert forthe QuantiFERON Gold (In Tube) test must be followed toenable for proper stimulation of cells for the productionof interferon gamma. Chemiluminescence immunoassaymethodology Atypical perinuclear antineu trophil cytoplasmic antibodies measurementOrdered By: Sarkis Hope on 09-20-2023 Neutrophil cytoplasmic Ab.perinuclear.atypical IF (S) [Titer] <1:20 titer Neg:<1:20 [facility] Comment on above: The atypical pANCA p attern has been observed in asignificant percentage of patients with ulcerative colitis,primary sclerosing cholangitis and autoimmune hepatitis. Basophil percentageOrdered B y: Sarkis Hope on 09-20-2023 Basophil percentage < 0.2 AI 0.0-0.9 [facility] Erythrocyte sedimentation ra teOrdered By: Sarkis Hope on 09-20-2023 ESR (Bld) [Velocity] 2 mm/h 0-30 [facility] No Panel InformationOrdered By: Sarkis Hope on 09-20-2023 Centromere B Antibody <0.2 AI 0.0-0.9 [facility] Miscellaneous Test See comment [facility] Comment on above: TEST RESULTS LIMITSI BD Expanded PanelgASCA 2 units 0-50 Negative: <45 Equivocal: 45-50 Positive: >50ACCA 12 units 0-90 Negative: <80 Equivocal: 80-90 Positive: >90ALCA 10 units 0-60 Negative:<55 Equivocal: 55-60 Positive: >60AMCA 63 units 0-100 Negative: <90 Equivocal: 90-100 Positive: >100 This test was developed and its performance characteristics determined by [facility]. It has not been cleared or approved by the Food and Drug Administration. The FDA has determined that such clearance or approval is not necessary.Atypical pANCA Negative NegativeCommentsPattern is not suggestive of Inflammatory Bowel Disease TESTING PERFORMED AT [facility]. ORIGINAL REPORT ON FILE IN LAB CONTAINS ADDITIONAL TEST SITE INFORMATION. IMMIGRATION ASSOCIATE Antibody <0.2 AI 0.0-0.9 [facility] Serum DNA double strand anti body assay (units/volume)Ordered By: Sarkis Hope on 09-20-2023 DNA double strand Ab Qn (S) [IU]/mL 0-9 [facility] Comment on above: Negative <5 Equivoca l 5 - 9 Positive >9 Serum Loreto-1 antibody assay (u nits/volume)Ordered By: Sarkis Hope on 09-20-2023 Loreto-1 extractable nuclear Ab Qn (S) <0.2 AI 0.0-0.9 [facility] Serum Scl-70 extractable nuc lear antibody assay (units/volume)Ordered By: Sarkis Hope on 09-20-2023 SCL-70 extractable nuclear Ab Qn (S) <0.2 AI 0.0-0.9 [facility] Serum Samson extractable nucl ear antibody detectionOrdered By: Sarkis Hope on 09-20-2023 Samson extractable nuclear Ab Ql (S) <0.2 AI 0.0-0.9 [facility] Serum classic neutrophil cyt oplasmic antibody assay (units/volume)Ordered By: Sarkis Hope on 09-20-2023 Neutrophil cytoplasmic Ab.classic Qn (S) <1:20 titer Neg:<1:20 [facility] Serum or plasma C reactive p rotein measurement (mass/volume)Ordered By: Sarkis Hope on 09-20-2023 CRP [Mass/Vol] mg/L 0.0-3.0 [facility] Comment on above: C-Reactive Protein ( CRP) provides useful information for thediagnosis, therapy and monitoring of inflammatory processesand associated diseases. For the evaluation of Relative Riskfor Cardiovascular Disease, a High Sensitivity CRP (HSCRP)should be ordered. Serum or plasma carcinoembry onic antigen measurement (mass/volume)Ordered By: Sarkis Hope on 09-20-2023 Carcinoembryonic Ag [Mass/Vol] 2.2 ng/mL 0.0-4.7 [facility] Comment on above: Nonsmokers <3.9 Smok ers <5.6[employer] Electrochemiluminescence Immunoassay(ECLIA)Values obtained with different assay methods or kitscannot be used interchangeably. Results cannot beinterpreted as absolute evidence of the presence orabsence of malignant disease.Performed at: [facility] [id number] Director: Chava Ta PhD, Phone: [phone] Serum perinuclear neutrophil cytoplasmic antibody titer by immunofluorescenceOrdered By: Sarkis Hope on 09-20-2023 Neutrophil cytoplasmic Ab.perinuclear IF (S) [Titer] <1:20 titer Neg:<1:20 [facility] Comment on above: The presence of posi tive fluorescence exhibiting P-ANCA orC-ANCA patterns alone is not specific for the diagnosis ofWegener's Granulomatosis (WG) or microscopic polyangiitis.Decisions about treatment should not be based solely onANCA IFA results. The International ANCA Group Consensusrecommends follow up testing of positive sera with both TX-3 and MPO-ANCA enzyme immunoassays. As many as 5% serumsamples are positive only by EIA. Ref. AM J Clin Cilrqp9806;111:507-513. US PELVIS NON-OB W/TRANSVAGI NALon 08-31-2023 US PELVIS NON-OB W/TRANSVAGINAL ORIGINAL EXAMINATION: TRANSVAGINAL PELVIC [id number]/13/2023 8:07 am Ultrasound pelvis, transabdominal and transvaginal COMPARISON: None HISTORY: ORDERING SYSTEM PROVIDED HISTORY: Reason for Exam: pelvic fullness on exam, adnexal mass FINDINGS: The uterus is 6.2 x 2.3 x 4.0 cm. No myometrial mass is seen. The endometrium is 4 mm double wall thickness which is normal.. Right ovary: 1.9 x 1.2 x 1.3 cm. There is a 1.6 cm cystic lesion in the ovary that has some internal echoes and may have small solid-appearing component without blood flow. There is blood flow in the surrounding ovarian tissue. Left ovary: 1.4 x 1.0 x 1.1 cm. No suspicious ovarian lesion. There is blood flow in the ovary. No pelvic free fluid. IMPRESSION: Mildly complex right ovarian cystic lesion. This could be a cyst with hemorrhage but is not considered physiologic at this age. Consider short-term follow-up in few weeks. If the lesion persists and is unchanged, MRI of the pelvis should be considered for further characterization. Interpreted by: Anders Brothers MD Preliminary Report By: Anders Brothers MD Electronically signed By Anders Brothers MD Dictated Date: 08/31/2023 4:19:38 PM Prelim Date: 08/31/2023 4:22:08 PM Sign Date: 08/31/2023 4:22:08 PM Ordering Provider: TRINITY Callahan [facility] [place] [employer] Cytology Reporton 2022 [employer] Cytology Report . Pathology Reports Accession: Collected Date/Time: Received Date/Time: Pathologist: [id number] 08/20/2023 09:52 EST 08/20/2023 18:00 EST [employer] Cytology Report SPECIMEN: Specimen Description: Liquid Prep w/ HPV Specimen: Cervical/Endocervical Screening or Diagnostic: Screening RELEVANT HISTORY: LMP: menopause SPECIMEN ADEQUACY: SATISFACTORY FOR EVALUATION Endocervical/Transformat ional zone component absent/insufficient INTERPRETATION/RESULTS: NEGATIVE FOR INTRAEPITHELIAL LESION OR MALIGNANCY HIGH RISK HPV TESTING: Event Code Result HPV Interp See Interp HPVN HPV Interp Text: High Risk HPV Typing: NEGATIVE HPV types 16, 18, 31, 33, 35, 39, 45, 51, 52, 56, 58, 59, 66 and 68 DNA were undetectable or below the pre-set threshold. The marlyn High-Risk HPV DNA Test is not intended for use as a screening device for Pap normal women under age 30 and is not intended to substitute for regular Pap screening. The marlyn High-Risk HPV DNA Test is designed to augment existing methods for the detection of cervical disease and should be used in conjunction with clinical information derived from other diagnostic and screening tests, physical examinations and full medical history in accordance with appropriate patient management procedures. NOTE: A negative result does not preclude the presence of HPV infection because results depend on adequate specimen collection, absence of inhibitors and sufficient DNA to be detected. As of: 08/23/23 12:42 EST COMMENT: This Pap Test was successfully processed and evaluated with the assistance of the [employer] ThinPrep Test Imaging System. Pathology Reports Accession: Collected Date/Time: Received Date/Time: Pathologist: [id number] 08/20/2023 09:52 EST 08/20/2023 18:00 EST Electronically Signed by Pathology report verified by [facility] Screened by: [place] Electronically signed by Nesha OCAMPO (ASCP) Sign-Out Date: 08/23/2023 12:43 Performing Lab: [facility], [address] [place] [address] Pathology Dept Disclaimer The Pap test is a screening test for cervical cancer. As evidenced by published data, it is subject to both inherent false negative and false positive results. Your patient's results should be interpreted in context with pertinent clinical history including gynecological examination. Normal [facility] [place] HPVon 08-23-2023 HPV Interp Normal See Interp HPVN [facility] [place] Comment on above: Order Comment: Order placed by AP_HPV_ORDER rule from [id number] Result Comment: High Risk HPV Typing: NEGATIVE HPV types 16, 18, 31, 33, 35, 39, 45, 51, 52, 56, 58, 59, 66 and 66 DNA were undetectable or below the pre-set threshold. The marlyn High-Risk HPV DNA Test is not intended for use as a screening device for Pap normal women under age 30 and is not intended to substitute for regular Pap screening. The marlyn High-Risk HPV DNA Test is designed to augment existing methods for the detection of cervical disease and should be used in conjunction with clinical information derived from other diagnostic and screening tests, physical examinations and full medical history in accordance with appropriate patient management procedures. NOTE: A negative result does not preclude the presence of HPV infection because results depend on adequate specimen collection, absence of inhibitors and sufficient DNA to be detected. See Interp HPVN Performed By: #### H PV #### [place] [address] HPV Source Cervix Normal [facility] ([place]) Comment on above: Order Comment: Order placed by AP_HPV_ORDER rule from [id number] Performed By: #### H PV #### [place] [address] LABORATORYOrdered By: Ashish Arriaga on 08-20-2023 HPV Interp High Risk HPV Typing : NEGATIVEHPV types 16, 18, 31, 33, 35, 39, 45, 51, 52, 56, 58, 59, 66 and 68 DNA wereundetectable or below the pre-set threshold.The marlyn High-Risk HPV DNA Test is not intended for use as a screening device forPap normal women under age 30 and is not intended to substitute for regular Papscreening.The marlyn High-Risk HPV DNA Test is designed to augment existing methods for thedetection of cervical disease and should be used in conjunction with clinicalinformation derived from other diagnostic and screening tests, physical examinationsand full medical history in accordance with appropriate patient managementprocedures.NOT E: A negative result does not preclude the presence of HPV infection because resultsdepend on adequate specimen collection, absence of inhibitors and sufficientDNA to be detected. Normal See Interp HPVN Auto Viro/Sero SS Specimen source Nom (Unsp spec) Cervix (08/20/23 9:52 AM) Normal Auto Viro/Sero SS Absolute lymphocyte countOrd ered By: Sukh Samson on 08-14-2023 Lymphocytes Auto (Unsp spec) [#/Vol] 2.41 10*3/uL 0.83-4.51 [facility] Basophil percentageOrdered B y: Sukh Samson on 08-14-2023 Basophils/100 WBC (Bld) 0.7 % 0-1 [facility] Bilirubin [Mass/Vol] 0.50 mg/dL 0.20-1.00 [facility] Comment on above: For patients on eltr ombopag therapy, use of Dimension [place] TBIL is not recommended. Chloride [Moles/Vol] 106 mmol/L 98-107 [facility] Cholesterol [Mass/Vol] 264 mg/dL <200 [facility] Comment on above: <200 mg/dL Desirable 200-240 mg/dL Borderline >240 mg/dL High Risk Eosinophils/100 WBC (Bld) 2.4 % 0-5 [facility] Glucose [Mass/Vol] 80 mg/dL 74-106 [facility] Neutrophils (Bld) [#/Vol] 4.4 10*3/uL 2.0-7.7 [facility] Neutrophils/100 WBC (Bld) 57.7 % 47-70 [facility] Potassium [Moles/Vol] 3.7 mmol/L 3.5-5.1 [facility] Protein [Mass/Vol] 7.5 g/dL 6.4-8.2 [facility] Sodium [Moles/Vol] 140 mmol/L 136-145 [facility] WBC (Bld) [#/Vol] 7.5 10*3/uL 4.4-11.0 [facility] Blood erythrocytes count (nu mber/volume)Ordered By: Sukh Samson on 08-14-2023 RBC (Bld) [#/Vol] 4.39 10*6/uL 4.2-5.4 [facility] Blood hemoglobin measurement (mass/volume)Ordered By: Sukh Samson on 08-14-2023 Hemoglobin (Bld) [Mass/Vol] 12.5 g/dL 12.0-15.0 [facility] Blood lymphocytes/100 leukoc ytesOrdered By: Sukh Samson on 08-14-2023 Lymphocytes/100 WBC (Bld) 32.0 % 19-41 [facility] Blood monocytes/100 leukocyt esOrdered By: Sukh Samson on 08-14-2023 Monocytes/100 WBC (Bld) 6.9 % 0-10 [facility] Blood platelet mean volumeOr dered By: Sukh Samson on 08-14-2023 Platelet mean volume (Bld) [Entitic vol] 10.6 fL 6.2-12.0 [facility] Determination of erythrocyte mean corpuscular volume (MCV)Ordered By: Sukh Samson on 08-14-2023 MCV (RBC) [Entitic vol] 91.6 fL 81-99 [facility] Hematocrit Auto (Bld) [Volum e fraction]Ordered By: Sukh Samson on 08-14-2023 Hematocrit (Bld) [Volume fraction] 40.2 % 37-47 [facility] Laboratory - Chemistry and C hemistry - challengeOrdered By: Sukh Samson on 08-14-2023 ALP [Catalytic activity/Vol] 81 U/L 45-117 [facility] ALT [Catalytic activity/Vol] 24 U/L 13-56 [facility] CO2 [Moles/Vol] 25.0 mmol/L 21.0-32.0 [facility] Free T4 [Mass/Vol] 1.13 ng/dL 0.76-1.46 [facility] Globulin (S) [Mass/Vol] 3.7 g/dL 2.2-4.2 [facility] Urea nitrogen/Creatinine [Mass ratio] 17.3 mg/mg 10-20 [facility] - Hematology and Cell countsOrdered By: Sukh Samson on 08-14-2023 Erythrocyte distribution width (RBC) [Entitic vol] 43.8 fL 35.1-43.9 [facility] Erythrocyte distribution width (RBC) [Ratio] 13.0 % 11.6-14.6 [facility] Immature granulocytes/100 WBC (Bld) 0.300 % 0.0-0.9 [facility] Comment on above: IG% - Immature Granu locytes (promyelocytes, myelocytes and metamyelocytes) > 1% indicates that a LEFT SHIFT is Present. MCH (RBC) [Entitic mass] 28.5 pg 27.0-32.0 [facility] Nucleated RBC/100 WBC (Bld) [Ratio] 0 % 0-5 [facility] MCHC Auto (RBC) [Mass/Vol]Or dered By: Sukh Samson on 08-14-2023 MCHC (RBC) [Mass/Vol] 31.1 g/dL 32-36 [facility] No Panel InformationOrdered By: Sukh Samson on 08-14-2023 Anti-Nuclear Antibody Screen Negative Negative [facility] Comment on above: Performed at: [employer] [address] Director: Chava Ta PhD, Phone: [phone] Estimated GFR (MDRD) Amer 101 mL/min >60 [facility] Comment on above: GFR Calc Estimated GFR (MDRD) Non-Af Amer 84 mL/min >60 [facility] Comment on above: Non- GFR Calc Thyroid Stimulating Hormone (TSH) 1.01 uIU/mL 0.358-3.74 [facility] Platelets bldOrdered By: Alvina Samson on 08-14-2023 Platelets (Bld) [#/Vol] 321 10*3/uL 150-450 [facility] Serum or plasma C reactive p rotein measurement (mass/volume)Ordered By: Sukh Samson on 08-14-2023 CRP [Mass/Vol] 3.34 mg/L 0.0-3.0 [facility] Comment on above: C-Reactive Protein ( CRP) provides useful information for thediagnosis, therapy and monitoring of inflammatory processesand associated diseases. For the evaluation of Relative Riskfor Cardiovascular Disease, a High Sensitivity CRP (HSCRP)should be ordered. Serum or plasma albumin scott urement (mass/volume)Ordered By: Sukh Samson on 08-14-2023 Albumin [Mass/Vol] 3.8 g/dL 3.2-5.0 [facility] Serum or plasma albumin/glob ulin mass ratioOrdered By: Sukh Samson on 08-14-2023 Albumin/Globulin [Mass ratio] 1.0 {ratio} 0.9-2.4 [facility] Serum or plasma calcium scott urement (mass/volume)Ordered By: Sukh Samson on 08-14-2023 Calcium [Mass/Vol] 8.9 mg/dL 8.5-10.1 [facility] Serum or plasma cholesterol in HDL measurement (mass/volume)Ordered By: Sukh Samson on 08-14-2023 Cholesterol in HDL [Mass/Vol] 88 mg/dL >40 [facility] Comment on above: The drugs N-Acetylcy steine and Metamizole may falsely depress this assay. Reference Range HDL <40 mg/dL Low HDL Cholesterol HDL >or= 60 mg/dL High HDL Cholesterol Serum or plasma creatinine m easurement (mass/volume)Ordered By: Sukh Samson on 08-14-2023 Creatinine [Mass/Vol] 0.75 mg/dL 0.55-1.02 [facility] Comment on above: The validity of the calculated GFR & GFRAA in patients over 70 years has not been determined. Clinical correlation is essential. Serum or plasma urea nitroge n measurement (mass/volume)Ordered By: Sukh Samson on 08-14-2023 Urea nitrogen [Mass/Vol] 13 mg/dL 7-18 [facility] Thin prep Papanicolaou smear with manual screeningOrdered By: Sukh Samson on 08-14-2023 Thin prep Papanicolaou smear with manual screening 16 U/L 15-37 [facility] Thin prep Papanicolaou smear with manual screening 9 5-15 [facility] Thin prep Papanicolaou smear with manual screening Negative Negative [facility] Comment on above: Lyme antibodies not detected. Reflex testing is notindicated.No laboratory evidence of infection with B. burgdorferi(Lyme disease). Negative results may occur in patientsrecently infected (less than or equal to 14 days) with B.burgdorferi. If recent infection is suspected, repeattesting on a new sample collected in 7 to 14 days isrecommended.Performed at: - [facility] [id number] Director: Chava Ta PhD, Phone: [phone] Cervical or vagninal specime n microscopic examination by cytology stain (reported asOrdered By: Dr. Florez on 01-24-2023 Cytology report Cyto stain Doc (Cvx/Vag) Comment . [facility] Comment on above: The Pap smear is a s creening test designed to aid in thedetection of premalignant and malignant conditions of theuterine cervix. It is not a diagnostic procedure andshould not be used as the sole means of detecting cervicalcancer. Both false-positive and false-negative reports dooccur. Detection in cervical specim en of any of human papilloma virus (HPV) 16, 18, 31, 33,Ordered By: Dr. Florez on 01-24-2023 HPV 16+18+31+33+35+39+45+51 +52+56+58+59+66+68 DNA Probe+sig amp Ql (Cvx) Negative Negative [facility] Comment on above: This nucleic acid am plification test detects fourteen high-risk HPV types (16,18,31,33,35,39,45,51,52,56,58,59,66,68)without differentiation. Laboratory - CytologyOrdered By: Dr. Florez on 01-24-2023 Project Management Instructor Cyto stain Nom (Cvx/Vag) [ID] Comment . [facility] Comment on above: Fracisco Dickerson, Cyto technologist (ASCP) Pathologist Cyto stain Nom (Cvx/Vag) [ID] Comment . [facility] Comment on above: Ritika Erwin MD, Pa thologist Recommended follow-up Cyto stain Nom (Cvx/Vag) Comment . [facility] Comment on above: Suggest follow up as clinically appropriate. Laboratory - Miscellaneous t estsOrdered By: Dr. Florez on 01-24-2023 Service comment (Unsp spec) [Interp] Comment . [facility] Comment on above: This liquid based Th inPrep(R) pap test was screened withthe use of an image guided system. Service comment (Unsp spec) [Interp] . . [facility] Liquid-based cerv Pap + CT/G C by ELZA w reflex to high-risk HPV for ASCUSOrdered By: Dr. Florez on 01-24-2023 Cytology report Cyto stain.thin prep Doc (Cvx/Vag) Comment . [facility] Comment on above: Criteria not met, HP V Genotype not performed.Performed at: [facility] - [facility] [id number] Director: Capri Cartagena MD, Phone: [phone] at: =G - [facility] [address] [id number] Director: Capri Cartagena MD, Phone: [phone] No Panel InformationOrdered By: Dr. Florez on 01-24-2023 Pathology report final diagnosis Narrative Comment . [facility] Comment on above: EPITHELIAL CELL ABNO RMALITY.ATYPICAL SQUAMOUS CELLS OF UNDETERMINED SIGNIFICANCE (ASC-US). R87.610 Absolute lymphocyte counton 07-06-2022 Lymphocytes Auto (Unsp spec) [#/Vol] 3.26 10*3/uL 0.83-4.51 [facility] Work Phone: Basophil percentageon 2021 Basophils/100 WBC (Bld) 0.6 % 0-1 [facility] Work Phone: Bilirubin [Mass/Vol] 0.30 mg/dL 0.20-1.00 [facility] Work Phone: Comment on above: For patients on eltr ombopag therapy, use of Dimension [place] TBIL is not recommended. Chloride [Moles/Vol] 107 mmol/L 98-107 [facility] Work Phone: Cholesterol [Mass/Vol] 253 mg/dL <200 [facility] Work Phone: Comment on above: <200 mg/dL Desirable 200-240 mg/dL Borderline >240 mg/dL High Risk Eosinophils/100 WBC (Bld) 1.6 % 0-5 [facility] Work Phone: Glucose [Mass/Vol] 85 mg/dL 74-106 [facility] Work Phone: Neutrophils (Bld) [#/Vol] 6.2 10*3/uL 2.0-7.7 [facility] Work Phone: Neutrophils/100 WBC (Bld) 59.8 % 47-70 [facility] Work Phone: Potassium [Moles/Vol] 3.5 mmol/L 3.5-5.1 [facility] Work Phone: Protein [Mass/Vol] 7.3 g/dL 6.4-8.2 [facility] Work Phone: Sodium [Moles/Vol] 141 mmol/L 136-145 [facility] Work Phone: WBC (Bld) [#/Vol] 10.4 10*3/uL 4.4-11.0 [facility] Work Phone: [phone] Blood erythrocytes count (nu mber/volume)on 07-06-2022 RBC (Bld) [#/Vol] 4.32 10*6/uL 4.2-5.4 [facility] Work Phone: Blood hemoglobin measurement (mass/volume)on 07-06-2022 Hemoglobin (Bld) [Mass/Vol] 12.6 g/dL 12.0-15.0 [facility] Work Phone: Blood lymphocytes/100 leukoc yteson 07-06-2022 Lymphocytes/100 WBC (Bld) 31.5 % 19-41 [facility] Work Phone: Blood monocytes/100 leukocyt eson 07-06-2022 Monocytes/100 WBC (Bld) 6.3 % 0-10 [facility] Work Phone: Blood platelet mean volumeon 07-06-2022 Platelet mean volume (Bld) [Entitic vol] 10.7 fL 6.2-12.0 [facility] Work Phone: Determination of erythrocyte mean corpuscular volume (MCV)on 07-06-2022 MCV (RBC) [Entitic vol] 92.1 fL 81-99 [facility] Work Phone: Hematocrit Auto (Bld) [Volum e fraction]on 07-06-2022 Hematocrit (Bld) [Volume fraction] 39.8 % 37-47 [facility] Work Phone: Laboratory - Chemistry and C hemistry - challengeon 07-06-2022 ALP [Catalytic activity/Vol] 81 U/L 45-117 [facility] Work Phone: ALT [Catalytic activity/Vol] 23 U/L 13-56 [facility] Work Phone: CO2 [Moles/Vol] 25.0 mmol/L 21.0-32.0 [facility] Work Phone: Globulin (S) [Mass/Vol] 3.4 g/dL 2.2-4.2 [facility] Work Phone: Urea nitrogen/Creatinine [Mass ratio] 23.3 mg/mg 07-06 [facility] Work Phone: Laboratory - Hematology and Cell countson 07-06-2022 Erythrocyte distribution width (RBC) [Entitic vol] 44.2 fL 35.1-43.9 [facility] Work Phone: Erythrocyte distribution width (RBC) [Ratio] 12.9 % 11.6-14.6 [facility] Work Phone: Immature granulocytes/100 WBC (Bld) 0.200 % 0.0-0.9 [facility] Work Phone: Comment on above: IG% - Immature Granu locytes (promyelocytes, myelocytes and metamyelocytes) > 1% indicates that a LEFT SHIFT is Present. MCH (RBC) [Entitic mass] 29.2 pg 27.0-32.0 [facility] Work Phone: Nucleated RBC/100 WBC (Bld) [Ratio] 0 % 0-5 [facility] Work Phone: MCHC Auto (RBC) [Mass/Vol]on 07-06-2022 MCHC (RBC) [Mass/Vol] 31.7 g/dL 32-36 [facility] Work Phone: No Panel Informationon 07-06 C-Reactive Protein High Sensitivity 2.26 mg/L <3.00 [facility] Work Phone: Comment on above: Low Relative Risk of CVD <1.0 mg/L Average Relative Risk of CVD 1.0 - 3.0 mg/L High Relative Risk of CVD >3.0 mg/L Estimated GFR (MDRD) Amer 92 mL/min >60 [facility] Work Phone: Comment on above: GFR Calc Estimated GFR (MDRD) Non-Af Amer 76 mL/min >60 [facility] Work Phone: Comment on above: Non- GFR Calc Platelets bldon 07-06-2022 Platelets (Bld) [#/Vol] 305 10*3/uL 150-450 [facility] Work Phone: Serum or plasma C reactive p rotein measurement (mass/volume)on 07-06-2022 CRP [Mass/Vol] mg/L 0.0-3.0 [facility] Work Phone: Comment on above: C-Reactive Protein ( CRP) provides useful information for thediagnosis, therapy and monitoring of inflammatory processesand associated diseases. For the evaluation of Relative Riskfor Cardiovascular Disease, a High Sensitivity CRP (HSCRP)should be ordered. Serum or plasma albumin scott urement (mass/volume)on 07-06-2022 Albumin [Mass/Vol] 3.9 g/dL 3.2-5.0 [facility] Work Phone: Serum or plasma albumin/glob ulin mass ratioon 07-06-2022 Albumin/Globulin [Mass ratio] 1.1 {ratio} 0.9-2.4 [facility] Work Phone: Serum or plasma calcium scott urement (mass/volume)on 07-06-2022 Calcium [Mass/Vol] 9.4 mg/dL 8.5-10.1 [facility] Work Phone: Serum or plasma cholesterol in HDL measurement (mass/volume)on 07-06-2022 Cholesterol in HDL [Mass/Vol] 92 mg/dL >40 [facility] Work Phone: Comment on above: The drugs N-Acetylcy steine and Metamizole may falsely depress this assay. Reference Range HDL <40 mg/dL Low HDL Cholesterol HDL >or= 60 mg/dL High HDL Cholesterol Serum or plasma creatinine m easurement (mass/volume)on 07-06-2022 Creatinine [Mass/Vol] 0.81 mg/dL 0.55-1.02 [facility] Work Phone: Comment on above: The validity of the calculated GFR & GFRAA in patients over 70 years has not been determined. Clinical correlation is essential. Serum or plasma urea nitroge n measurement (mass/volume)on 07-06-2022 Urea nitrogen [Mass/Vol] 19 mg/dL 7-18 [facility] Work Phone: Thin prep Papanicolaou smear with manual screeningon 07-06-2022 Thin prep Papanicolaou smear with manual screening 15 U/L 15-37 [facility] Work Phone: Thin prep Papanicolaou smear with manual screening 9 5-15 [facility] Work Phone: Cervical or vagninal specime n microscopic examination by cytology stain (reported ason 06-19-2022 Cytology report Cyto stain Doc (Cvx/Vag) Comment . [facility] Work Phone: Comment on above: The Pap smear is a s creening test designed to aid in thedetection of premalignant and malignant conditions of theuterine cervix. It is not a diagnostic procedure andshould not be used as the sole means of detecting cervicalcancer. Both false-positive and false-negative reports dooccur. Detection in cervical specim en of any of human papilloma virus (HPV) 16, 18, 31, 33,on 06-19-2022 HPV 16+18+31+33+35+39+45+51 +52+56+58+59+66+68 DNA Probe+sig amp Ql (Cvx) Positive Negative [facility] Work Phone: Comment on above: This nucleic acid am plification test detects fourteen high-risk HPV types (16,18,31,33,35,39,45,51,52,56,58,59,66,68)without differentiation.Performed at: - [facility] [id number] Director: Capri Cartagena MD, Phone: [phone] at: = - [facility] [id number] Director: Capri Cartagena MD, Phone: [phone] Laboratory - Cytologyon -0 Project Management Instructor Cyto stain Nom (Cvx/Vag) [ID] Comment . [facility] Work Phone: Comment on above: Daphnie jean, Supervisor Cell Maintenance (ASCP) Pathologist Cyto stain Nom (Cvx/Vag) [ID] Comment . [facility] Work Phone: Comment on above: Jannie Patel MD, P athologist Laboratory - Miscellaneous t estson 06-19-2022 Service comment (Unsp spec) [Interp] Comment . [facility] Work Phone: Comment on above: This liquid based Th inPrep(R) pap test was screened withthe use of an image guided system. Service comment (Unsp spec) [Interp] . . [facility] Work Phone: No Panel Informationon 06-19 Pathology report final diagnosis Narrative Comment . [facility] Work Phone: Comment on above: EPITHELIAL CELL ABNO RMALITY.HIGH-GRADE SQUAMOUS INTRAEPITHELIAL LESION (HSIL). R87.613 Vital Signs Date Time Vital Sign Value Performing Clinician Faci lity 09-21-2023 10:46-0500 Body height 157.[address] Sukh Samson Work Phone: [facility] 09-20-2023 09:45-0500 Body temperature 97.6 [degF] Dr. Sukh Samson Work Phone: [facility] 09-20-2023 09:45-0500 Diastolic blood pressure 63 mm[Hg] Dr. Sukh Samson Work Phone: [facility] 09-20-2023 09:45-0500 Heart rate 58 /min Dr. Sukh Samson Work Phone: [facility] 09-20-2023 09:45-0500 Respiratory rate 16 /min Dr. Sukh Samson Work Phone: [facility] 09-20-2023 09:45-0500 SaO2% (BldA) [Mass fraction] 100 % Dr. Sukh Samson Work Phone: [facility] 09-20-2023 09:45-0500 Systolic blood pressure 100 mm[Hg] Dr. Sukh Samson Work Phone: [facility] 09-20-2023 08:12-0500 Body height 157.[address] Sukh Samson Work Phone: [facility] 09-20-2023 08:12-0500 Body mass index (BMI) [Ratio] 23.2 kg/m2 Dr. Sukh Samson Work Phone: [facility] 09-20-2023 08:12-0500 Body weight 57.[address] Sukh Samson Work Phone: [facility] 08-22-2023 10:46-0500 Body mass index (BMI) [Ratio] 23.2 kg/m2 Dr. Sukh Samson Work Phone: [facility] 08-22-2023 10:46-0500 Body weight 55.[address] Sukh Samson Work Phone: [facility] 07-20-2022 11:10-0400 Body height 154.94 cm [facility] Work Phone: 07-20-2022 11:10-0400 Body mass index (BMI) [Ratio] 22.4 kg/m2 [facility] Work Phone: 07-20-2022 11:10-0400 Body temperature 97.2 [degF] [facility] Work Phone: 07-20-2022 11:10-0400 Body weight 54 kg [facility] Work Phone: 07-20-2022 11:10-0400 Diastolic blood pressure 95 mm[Hg] [facility] Work Phone: 07-20-2022 11:10-0400 Heart rate 70 /min [facility] Work Phone: 07-20-2022 11:10-0400 Respiratory rate 12 /min [facility] Work Phone: 07-20-2022 11:10-0400 SaO2% (BldA) [Mass fraction] 100 % [facility] Work Phone: 07-20-2022 11:10-0400 Systolic blood pressure 126 mm[Hg] [facility] Work Phone: Encounters Encounter Date Encounter Type Care Provider Facility Start: 07-14-2025 ambulatory Sukh Samson Facility:[facility] Start: 07-07-2025 End: 07-11-2025 ambulatory SUKH SAMSON MD Facility:[facility] Start: 07-07-2025 End: 07-11-2025 Encounter for gynecological examination (general) (routine) without abnormal findings TRINITY HAAS MD Facility:[facility] Start: 07-07-2025 End: 07-11-2025 Outreach Lab TRINITY HAAS MD [facility] Start: 03-31-2025 End: 03-31-2025 Patient encounter procedure Sarkis Hope DO -[facility] Work Phone: Start: 03-31-2025 End: 03-31-[address] Sukh Samson MD Work Phone: -[facility] Start: 03-31-2025 End: 03-31-2025 ambulatory Sarkis Hope Facility:[facility] Start: 10-14-2024 End: 10-14-2024 chelsea Samson Facility:[facility] Start: 10-10-2024 ambulatory Sukh Samson Facility:[facility] Start: 09-25-2024 End: 09-25-2024 ambulatory [facility] Facility:[facility] Start: 09-24-2024 Encounter for genera l adult medical examination without abnormal findings Sukh Samson [facility] Start: 09-23-2024 End: 09-23-2024 ambulatory Sarkislindsay Hope Facility:[facility] Start: 08-22-2024 End: 08-22-2024 ambulatory Sukh Samson Facility:[facility] Start: 07-25-2024 End: 07-25-2024 ambulatory Sukh Samson Facility:[facility] Start: 06-25-2024 End: 06-29-2024 Outreach Lab TRINITY HAAS MD [facility] Start: 11-05-2023 End: 11-05-[address] Sukh Samson Work Phone: [facility] Work Phone: Start: 11-05-2023 End: 11-05-[address] Sukh Samson Work Phone: [facility] Work Phone: Start: 10-16-2023 End: 10-16-[address] Sukh Samson Work Phone: [facility] Work Phone: Start: 09-21-2023 End: 09-21-[address] Sukh Samson Work Phone: [facility] Work Phone: Start: 09-21-2023 End: 09-21-[address] Sukh Samson Work Phone: [facility] Work Phone: Start: 09-20-2023 Non-patient / Non-visit Dr. Seth Samson Work Phone: [facility] Start: 09-20-2023 End: 09-20-2023 Admission to same day surgery center Dr. Sukh Samson Work Phone: [facility] Work Phone: Start: 09-20-2023 End: 09-20-[address] Sukh Samson Work Phone: [facility] Work Phone: Start: 08-29-2023 End: 08-30-2023 ambulatory TRINITY HAAS MD Facility:[facility] Start: 08-29-2023 End: 08-29-2023 Patient encounter procedure TRINITY HAAS MD [facility] Start: 08-22-2023 Non-patient / Non-visit Dr. Seth Samson Work Phone: [facility] Work Phone: Start: 08-20-2023 ambulatory SUKH SAMSON MD Facilit y:B Start: 08-20-2023 Encounter for gynecological examination (general) (routine) without abnormal findings TRINITY HAAS MD Facility:[facility] Start: 08-20-2023 End: 08-24-2023 Outreach Lab TRINITY HAAS MD [facility] Start: 08-14-2023 End: 08-14-2023 ambulatory [facility] Work Phone: Start: 08-14-2023 End: 08-14-2023 Patient encounter procedure [facility] [place] Work Phone: Start: 08-06-2023 End: 08-06-2023 ambulatory [facility] Work Phone: Start: 08-06-2023 End: 08-06-2023 Patient encounter procedure [facility] Work Phone: Start: 02-26-2023 End: 02-26-2023 ambulatory [facility] Work Phone: Start: 02-26-2023 End: 02-26-2023 Patient encounter procedure [facility] Start: 01-24-2023 End: 01-24-2023 ambulatory [facility] Work Phone: Start: 01-24-2023 End: 01-24-2023 Patient encounter procedure [facility] Start: 07-20-2022 End: 07-20-2022 Admission to same day surgery center [facility] Start: 07-20-2022 End: 07-20-2022 ambulatory [facility] Work Phone: Start: 07-06-2022 End: 07-06-2022 ambulatory [facility] Work Phone: Start: 07-06-2022 End: 07-06-2022 [facility] Start: 06-19-2022 End: 06-19-2022 ambulatory [facility] Work Phone: Start: 06-19-2022 End: 06-19-2022 Patient encounter procedure [facility] Procedures Date Procedure Procedure Detail Performing Clinician Start: 03-31-2025 Vitamin D, 25-hydrox y measurement Dr. Sukh Samson MD Work Phone: Comment on above: Vitamin D StatusDefi ciency: <20 ng/mL (50nmol/L)Insufficiency: 20-30 ng/mL (50-75 nmol/L)Sufficiency: 30-100 ng/mL (75-250 nmol/L)Toxicity: >100 ng/mL (>250 nmol/L) Start: 11-05-[address] Ary Samson Work Phone: Start: 09-20-[address] Sukh pederson Work Phone: Start: 08-06-2023 Screening mammography Start: 07-20-2022 Leep Cone (Not Applicable) Start: 09-17-2021 Loop electrosurgical excision procedure of cervix TRINITY WALDO JULES Colposcopy TRINITY HAAS MD Comment on above: x2 Plan of Treatment Date Care Activity Detail Author Start: 09-20-2023 Colonoscopy w/biopsy single/multiple COLONOSCOPY AND BIOPSY [facility] Start: 09-20-2023 Colsc flx w/rmvl of tumor polyp lesion snare tq COLONOSCOPY W/LESION REMOVAL [facility] Start: 09-20-2023 Colsc flx with directed submucosal njx any sbst COLONOSCOPY SUBMUCOUS NJX [facility] Start: 09-20-2023 Procedure [facility] Start: 09-20-2023 Patient discharge [facility] Start: 08-06-2023 Screening mammography SCRN MAMM (CAD)W/CONRADO BILAT [facility] Start: 07-20-2022 Ambulation without limitation [facility] Work Phone: Start: 07-20-2022 Medical regimen orders management [facility] Work Phone: Start: 07-20-2022 Medication education [facility] Work Phone: Start: 07-20-2022 Patient discharge [facility] Work Phone: Start: 07-20-2022 Taking patient vital signs [facility] Work Phone: Start: 07-20-2022 Vital signs measurements [facility] Work Phone: Start: 07-20-2022 [facility] Work Phone: Bordetella pertussis IgG Ab [Units/volume] in Serum [facility] C reactive protein [Mass/volume] in Serum or Plasma [facility] C reactive protein [Mass/volume] in Serum or Plasma [facility] Carcinoembryonic Ag [Mass/volume] in Serum or Plasma [facility] Colonoscopy [facility] Erythrocyte sediment ation rate [facility] Erythrocyte sediment ation rate [facility] Hepatitis A virus Ig M Ab [Presence] in Serum [facility] Hepatitis B core ant ibody measurement, IgM type [facility] Hepatitis B surface antigen measurement [facility] Hepatitis C antibody measurement [facility] In-vitro immunologic test [facility] Mumps virus IgM Ab [Units/volume] in Serum [facility] Mycobacterium tuberc ulosis tuberculin stimulated gamma interferon [Presence] in Blood [facility] Nuclear Ab [Presence ] in Serum [facility] Path report.final Dx Spec [facility] Work Phone: Path report.final Dx Spec [facility] Patient referral [facility] Work Phone: Procedure [facility] Varicella-zoster vir us antibody IgG measurement [facility] Vitamin D, 1,25-dihy droxy measurement [facility] Vitamin D, 25-hydrox y measurement [facility] Immunizations Immunization Date Immunization Notes Care Provider Fa cility 12-21-2020 Covid (Pfizer) [facility] 11-30-2020 Covid (Pfizer) [facility] Payers Date Payer Category Payer Private Health Insurance [id number] 2024 Unknown [id number] 2024 Self-pay [id number] 2023 Unknown [id number] 2009 Unknown [id number] 2009 Unknown [id number] 1965 Unknown [id number] 2.16.8 [id number] 1965 Unknown [id number] 2.16.8 [id number] 1965 Unknown [id number] 2.16. [id number] Unknown [id number] 2.16.8 [id number] Unknown [id number] 2.16.8 [id number] Unknown [id number] 2.16.8 [id number] Unknown [id number] 2.16.8 [id number] Unknown [id number] 2.16.8 [id number] Unknown [id number] 2.16.8 [id number] Unknown [id number] 2.16.8 [id number] Unknown [id number] 2.16.8 [id number] Unknown [id number] 2.16.8 [id number] Social History Date Type Detail Facility Start: 06-16-2022 End: 10-16-2023 Tobacco smoking status OHIS Unknown if ever smoked [facility] Start: 1965 Sex Assigned At Female [facility] Start: 08-20-2023 End: 10-16-2023 Tobacco smoking status Never smoked tobacco (finding) [facility] Sexual Orientation Shonna kirk [facility] Sex Female (finding) [facility] NEGATED: Highlighted row [facility] Medical Equipment Procedure Code Equipment Code Equipment Origin al Text Equipment Identifier Dates Colonoscopy Tissue marking ink [id number] [facility] Start: 09-20-2023 Goals Date Patient Goal Desired Activity /State Mental Status Date Assessment Result Facility 09-20-2023 Cognitive function Voice/Name;Touch/Tiki ng [facility] Work Phone: 07-20-2022 Cognitive function Voice/Name [facility] Work Phone: Clinical Notes 06-19-2022 to 07-07-2025 Note Date & Type Note Facility 07-07-2025 Note Event Display: GY In terp Adequacy SATISFACTORY FOR EVALUATION Endocervical/Transformational zone component present [place], [place] (ASCP) Nesha:LAWRENCE; Authored Date: [id number] [facility] 03-31-2025 Evaluation note Diagnosis Onset Date Resolution Ulcerative colitis chronic March 172024 8:59am [facility] Work Phone: [phone] 971-591812-20-2024 Evaluation + Plan note Future Scheduled Tests Laboratory* [facility] Send Out (Non-Blood Specimens) 09/05/24 Radiology* MA Mammo Screening Bilateral w/ Conrado 07/07/25 [facility] 10-09-2024 Evaluation + Plan note Diagnostic Tests Pending * HPV Screen, DNA Probe 06/25/24 Future Scheduled Tests Radiology* [facility] Mammo Screening Bilateral w/ Conrado 06/25/24 * US Pelvis Non-OB W/Transvaginal 09/04/23 * US Pelvis Non-OB W/Transvaginal 10/17/23 [facility] 01-04-2024 Procedure [facility] 09-20-2023 Procedure [facility]12-07-2023 Note NEGATIVE FOR INTRAEPITHELIAL LESION OR MALIGNANCY [facility] 12-07-2023 Note NEGATIVE FOR INTRAEPITHELIAL LESION OR MALIGNANCY [facility] 12-07-2023 Note NEGATIVE FOR INTRAEPITHELIAL LESION OR MALIGNANCY [facility] 12-07-2023 Note NEGATIVE FOR INTRAEPITHELIAL LESION OR MALIGNANCY [facility] 12-07-2023 Note NEGATIVE FOR INTRAEPITHELIAL LESION OR MALIGNANCY [facility] 12-07-2023 Note NEGATIVE FOR INTRAEPITHELIAL LESION OR MALIGNANCY [facility] 12-07-2023 Note NEGATIVE FOR INTRAEPITHELIAL LESION OR MALIGNANCY [facility] 12-07-2023 Note NEGATIVE FOR INTRAEPITHELIAL LESION OR MALIGNANCY [facility] 05-10-2023 NotePap Smear Specimen AdequacyMay 2022 9:10amComment.Satisfactory for evaluation. Endocervical component may not bedistinguished in cases of atrophy.Areas of partially obscuring blood are present.[facility] INTERFACED A#[id number] HospitalComment on above: Satisfactory for evaluation. Endocervical component may not bedistinguished in cases of atrophy.Areas of partially obscuring blood are present.06-19-2022 Note Pap Smear Specimen AdequacyOctober 2021 9:11amComment.Satisfactory for evaluation. Endocervical and/or squamous metaplasticcells (endocervical component)are present.[facility] A#[id number] Hospital Work Phone: Comment on above:Satisfactory for evaluation. Endocervical and/or squamous metaplasticcells (endocervical component)are present.06-19-2022 NotePap Smear Specimen AdequacyOctober 2021 9:11am Comment.Satisfactory for evaluation. Endocervical and/or squamous metaplasticcells (endocervical component)are present.[facility] A#[id number] Hospital Work Phone: Comment on above:Satisfactory for evaluation. Endocervical and/or squamous metaplasticcells (endocervical component)are present.Evaluation + Plan note Future Appointments Appointment Date:08/29/2023 07:30:00 AM Scheduled Provider: Location:[facility] Appointment Type:US Pelvis Non-OB W/Transvaginal Future Scheduled Tests Radiology* US Pelvis Non-OB W/Transvaginal 08/29/23 [facility] Evaluation noteNo assessment information available [facility] Work Phone: Evaluation note* Diagnosis Onset Date Resolution Status Encounter for screening for malignant neoplasm of colo n acute [facility] Work Phone: Evaluation note* Diagnosis Onset Date Resolution Status Encounter for screening for malignant neoplasm of colo n acute Ulcerative colitis chronic [facility] Work Phone: Evaluation note* Diagnosis Onset Date Resolution Status Admit Date Ulcerative colitis chronic March 172024 8:59am [facility] Work Phone: History and physical note Author Sarkis Friend [facility] September 20, 2023 8:54am Note Date/Time September 20, 2023 8: 54am [facility] Medical Records Department [address] [place] [address] History & Physical Exam 09/20/23 0852 MR#: [id number] Acct: [id number] Name: NIK LAY Rep #:[id number] : 1965 58 From: Sarkis Hope DO PCP: Dr. Sukh Samson MD Status:[facility] Location: [place] [address] HPI - General General Date of Admission: 09/20/23 Date of Service: 09/20/23 Chief Complaint: Screening colonoscopy HPI Narrative NIK LAY, is a 58 F who presents today for screening colonoscopy. She had acold 10 years ago and it was normal. She does have a family history of skin cancer but no personal history of cancer. 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 She not have any problems with that now she does not take any medicines on a daily basis. And vitamins and supplements. Overall she is in very good health. [facility] Medical History (Updated 09/14/23 @ 13:37 by Evon Lilly) Actinic keratosis Alcohol use Anemia Anemia Dietary restriction Family history of skin cancer Heart murmur High cholesterol History of irregular heartbeat History of steroid therapy Hx LEEP (loop electrosurgical excision procedure), cervix, Hx of ulcerative colitis IBS (irritable bowel syndrome) Injury of head and neck Non-smoker Post-menopausal Spider veins of both lower extremities Ulcerative colitis UTI (urinary tract infection) Wears glasses Home Medications cholecalciferol (vitamin D3) 25 mcg (1,000 unit) capsule (Vitamin D3) 25 mcg PO DAILY 06/16/22 [History Last Taken 09/20/23] coenzyme Q10 100 mg capsule (CoQ-10) 100 mg PO DAILY 06/16/22 [History Last Taken 09/20/23] cyanocobalamin-liver extract tablet 1 tab PO FR 06/16/22 [History Last Taken 09/20/23] multivitamin 1 cap PO DAILY 06/16/22 [History Last Taken 09/20/23] omega-3 fatty acids 1,000 mg PO DAILY 06/16/22 [History Last Taken 09/20/23] vitamin K2 100 mcg capsule 100 mcg PO DAILY 06/16/22 [History Last Taken 09/20/23] quercetin 500 mg capsule 500 mg PO DAILY 09/14/23 [History Last Taken 09/20/23] Allergy/AdvReac Type Severity Reaction Status Date / Time amoxicillin Allergy Rash Verified 09/20/23 08:11 cashew nut [cashews] Allergy Itching Verified 09/20/23 08:11 Penicillins [cillins] Allergy Rash Verified 09/20/23 08:11 Family History (Updated 08/22/23 @ 10:38 by Luz Avila) Mother Colon cancer Other Anemia Family history of skin cancer Surgical History (Updated 09/14/23 @ 13:37 by Evon Lilly) Hx of colonoscopy Hx of oral surgery Social History Smoking Status: Never smoker alcohol intake: never substance use type: does not use additional social history: Does Take Aspirin Does Not Take Ibuprofen ROS Review of Systems ROS Unobtainable: other Constitutional Constitutional: Denies fatigue, fever(s), poor appetite, weight gain or weight loss ENT HEENT: Denies mouth lesions Cardiovascular Cardiovascular: Denies abdominal bloating, abdominal edema or abdominal pain Respiratory/Chest Respiratory/Chest: Denies change in mental status, change in phlegm color, chest congestion or chest tightness Gastrointestinal Gastrointestinal: Denies belching, bloating, change in bowel habits, change in stool character, chewing difficulty, coffee ground emesis, constipation, cramping, diarrhea, dyspepsia, dysphagia, early satiety, excessive flatus, fecal incontinence, heartburn, hematemesis, hematochezia, hemorrhoids, loose stools, melena, nausea, odynophagia, rectal bleeding, tenesmus, vomiting or weight changes Genitourinary Genitourinary: Denies abdominal discomfort, burning urination or itching Musculoskeletal Musculoskeletal: Reports as per HPI; Denies muscle weakness or myalgias Integumentary Integumentary: Denies jaundice Neurologic Neurologic: Denies lack of coordination or weakness Psychiatric Psychiatric: Denies confusion, depression, memory loss, mood swings, paranoia or suicidal ideation Endocrine Endocrinology: Denies systems reviewed and no addt'l complaints, except as documented Hematologic/Lymphatic Hematologic/Lymphatic: Denies anemia, easy bleeding, easy bruising or lymphadenopathy Allergic/Immunologic Allergic/Immunologic: Denies systems reviewed and no addt'l complaints, except as documented Vital Signs Vital Signs Vital Signs: 09/20/23 08:12 09/20/23 08:12 Temperature 97.8 F Temperature Source Temporal Pulse Rate 54 L Respiratory Rate 16 Respiratory Pattern Normal Blood Pressure 113/71 Blood Pressure Mean 85 Blood Pressure Source Monitor Blood Pressure Position Semi-Fowlers Blood Pressure Location Right Arm Pulse Ox 100 Oxygen Delivery Method Room Air Weight Weight: 127 lb 3.307 oz Body Mass Index (BMI) 23.2 Physical Exam Const alert General Appearance: cooperative Orientation / Consciousness: oriented to person HEENT hearing grossly normal bilaterally Head and Scalp: normal to inspection Face and Sinus: face symmetric Nose: external nose normal Mouth: oral and palatal mucosa normal Eyes conjunctivae normal General Eye: normal appearance of both eyes Neck full ROM General: normal visual inspection Lymph Lymphatic: no lymphadenopathy noted Chest inspection of chest normal and palpation of chest normal Chest: symmetrical chest wall rise Resp normal respiratory effort Effort and Inspection: able to speak in complete sentences Cardio regular rate GI non-distended Percussion: normal to percussion Rectal Exam: deferred Neuro Speech: speech normal Gait (Neuro): normal gait Assessment & Plan Assessment/Plan (1) Encounter for screening for malignant neoplasm of colon: PLAN: She was explained alternatives, risk, benefits including not withstanding bleeding, infection, sepsis, perforation, need for emergent surgery and . She will have an ASA of 2. 09/20/23 0854 <Electronically signed by Sarkis Hope DO> Cosigner Signature (if applicable): CC: Dr. Sukh Samson MD; Sarkis Hope DO~ Signed [facility] Work Phone: Hospital course Narrative No data available for this section [facility] Hospital Discharge instructions Additional Instructions Implant Used?: [facility] Work Phone: Hospital Discharge instructions No data available for this section [facility] Progress note No data available for this section [facility] Reason for referral (narrative)No reason for [facility] Work [facility]: Family History No Family History Records Found Relationship Condition Age at Onset Recorded Date/T johnnie Not Specified Malignant neoplasm of colon Unknown Anemia Unknown Family history of ma lignant neoplasm of skin Unknown Relationship Condition Age at Onset Recorded Date/T johnnie Not Specified Anemia Unknown Family history of ma lignant neoplasm of skin Unknown mother Malignant neoplasm of colon Unknown Advance Directives No Advanced Directives Records Found Advance Directive Response Recorded Date/ Time Living Will No June 16, 2022 12:15pm Power of Oracle Apex Developer Yes May 12:15pm Advance Directive Response Recorded Date/ Time Living Will No July 11 2:22pm Power of Oracle Apex Developer Yes July 11, 2022 2:22pm Advance Directive Response Recorded Date/ Time Name of Medical Power of Oracle Apex Developer ONEIL DAVIS Kathy July 11, 2022 2:22pm Living Will No July 11 2:22pm Power of Oracle Apex Developer Yes July 11, 2022 2:22pm Advance Directive Response Recorded Date/ Time Living Will No July 11 1:22pm Power of Oracle Apex Developer Yes July 11, 2022 1:22pm Advance Directive Response Recorded Date/ Time Name of Medical Power of Oracle Apex Developer FAMILY September 14, 2023 1:31pm Living Will Yes September 14 023 1:31pm Power of Oracle Apex Developer Yes September 14, 2023 1:31pm Advance Directive Response Recorded Date/ Time Name of Medical Power of Oracle Apex Developer FAMILY September 14, 2023 1:31pm Living Will Yes September 21 10:46am Power of Oracle Apex Developer Yes September 21 024 10:46am Advance Directive Response Recorded Date/ Time Living Will Yes September 21 10:46am Power of Oracle Apex Developer Yes Anita 5th, 2 024 10:46am Name of Medical Power of Oracle Apex Developer FAMILY September 14, 2023 1:31pm Chief Complaint and Reason for Visit Chief Complaint LEEP CONE Chief Complaint SCREENING Chief Complaint SCREENING Amb Documentation Reason for Visit Encounter for screen ing for malignant neoplasm of colon Chief Complaint SCREENING Amb Documentation Ulcerative Colitis OVARIAN CYST Reason for Visit Encounter for screen ing for malignant neoplasm of colon Ulcerative colitis Chief Complaint Admit Date 6 M FU March 31, 2025 8:59 am Reason for Visit Admit Date Ulcerative colitis March 31, 2025 8:59 am Summary Purpose Additional Source Comments Goals (unrecognized section and content) Goals may be documented in a n alternate sectionGoals may be documented in an alternate sectionGoals may be documented in an alternate sectionGoals may be documented in an alternate sectionGoals may be documented in an alternate sectionGoals may be documented in an alternate section No data available for this section No data available for this section No data available for this sectionGoals may be documented in an alternate sectionGoals may be documented in an alternate section No data available for this section Care Teams (unrecognized sec tion and content) Team Status: Active Member Role Status Dates Dr. Sukh Samson MD Family Provider Active Dr. Sukh Samson MD Primary Care Provider Active Team Status: Inactive Member Role Status Dates Dr. Sukh Samson MD Primary Care Provider Active Dr. Helen Florez DO Attending Provider Active Team Status: Inactive Member Role Status Dates Dr. Sukh Samson MD Primary Care Provide r, Attending Provider, Referring Provider Active Team Status: Active Member Role Status Dates Dr. Sukh Samson MD Primary Care Provider Active [facility] Attending Provider Active Team Status: Active Member Role Status Dates Dr. Sukh Samson MD Primary Care Provider, Referring P rovider Active Dr. Sarkis Hope DO Attending Provider, Other Prov ider Active Team Status: Inactive Member Role Status Dates Dr. Sukh Samson MD Primary Care Provider, Referring P rovider Active Dr. Sarkis Hope DO Attending Provider Active Team Status: Inactive Member Role Status Dates Dr. Sukh Samson MD Primary Care Provider Active Dr. Sarkis Hope DO Attending Provider, Referring Provider Active Team Status: Inactive Member Role Status Dates Dr. Sukh Samson MD Primary Care Provider Active [facility]UVENT[facility] ALVARADO Attending Provider, Referring Provider Active Team Status: Active Member Role/Relationship Status Dates Dr. Sukh Samson MD Primary Care Provider Active Team Status: Inactive Member Role/Relationship Status Dates Dr. Sukh Samson MD Primary Care Provider Active Start: March 31, 2025 End: March 31, 2025 Dr. Sukh Samson MD Referring Provider Active St art: March 31, 2025 End: March 31, 2025 Dr. Sarkis Hope DO Attending Provider Active Start: March 31, 2025 End: March 31, 2025 Team Status: Inactive Member Role/Relationship Status Dates Dr. Sukh Samson MD Primary Care Provider Active Start: March 31, 2025 End: March 31, 2025 Dr. Sarkis Hope DO Attending Provider Active Start: March 31, 2025 End: March 31, 2025 Dr. Sarkis Hope DO Referring Provider Active Start: March 31, 2025 End: March 31, 2025 INFORMATION SOURCE (unrecogn ized section and content) DATE CREATED AUTHOR 11/23/2023 [facility] ([place]) DATE CREATED AUTHOR AUTHOR'S ORGANIZ ATION 07/13/2025 [facility] DATE CREATED AUTHOR AUTHOR'S ORGANIZ ATION 07/22/2025 [facility] FOR RECORDS PERTAINING TO PATIENTS WHO ARE [...] BE BASED ON THE PRIMARY CLINICAL RECORDS. [employer] [facility]. provides no warranty or guarantee of the accuracy or completeness of information in this document.
== END | disposition home or self-care (01) ==
LOC: OPBI 07:08
PROVIDERS: PCP Family Medicine; Referring Provider Obstetrics & Gynecology Gynecology; Visit Provider Obstetrics & Gynecology Gynecology
DX: Z12.31 Encounter for screening mammogram for malignant neoplasm of breast (principal)
CPT/HCPCS: 77063; 77067